=== PATIENT | female | born 1935 | race Caucasian/White ===

== ENCOUNTER → 2016-03-30 | Outpatient (REF) | payer MEDICARE ==
[~2016-03-30] MED LIST: /CELE20CA; /GLYB5TA; /PANT40TA; ACIPHEX; AVAN8TAB3; BABY81CH; CALCCHW12; FISH OIL OMEGA; GAVISCON; GLUC1000; LISI5TAB; PRESERVISION AREDS; SIMV40TA2; THERGRAN; TUMS500C; TYLENOL ARTHRITIS; XALATAN
[2016-03-30 14:36] LABS: PERCENT SATURATION 19.1 % (13.2-37.4)
== END ==
LOC: M LAB REF 13:01
PROVIDERS: ATTEND Internal Medicine Nephrology
DX: D64.9 Anemia, unspecified (principal)

== ENCOUNTER → 2016-03-31 | Outpatient (CLI) | payer MEDICARE ==
[2016-03-31 10:17] LABS: MEAN CORPUSCULAR HEMOGLOBIN 28.8 pg (27.0-33.0); MEAN CORPUSCULAR HGB CONC 33.3 g/dl (32.0-36.5); MEAN CORPUSCULAR VOLUME 86.5 fl (80.0-96.0); RED CELL DISTRIBUTION WIDTH 14.7 % (11.5-14.5)
[2016-03-31 10:58] LABS: ALBUMIN 3.1 GM/DL (3.2-5.2); BILIRUBIN,TOTAL 0.4 MG/DL (0.2-1.0); CALCIUM LEVEL 8.6 MG/DL (8.8-10.2); CREATININE FOR GFR 1.71 MG/DL (0.55-1.02); GLOMERULAR FILTRATION RATE 30.6 (>32); POTASSIUM SERUM 4.1 MEQ/L (3.5-5.1); TOTAL PROTEIN 6.2 GM/DL (6.4-8.2)
== END ==
LOC: M LAB 08:30
PROVIDERS: ATTEND Internal Medicine Cardiovascular Disease
DX: I50.32 Chronic diastolic (congestive) heart failure (principal); I25.10 Atherosclerotic heart disease of native coronary artery without angina pectoris; Z79.899 Other long term (current) drug therapy; I10 Essential (primary) hypertension; E78.00 Pure hypercholesterolemia, unspecified; E11.22 Type 2 diabetes mellitus with diabetic chronic kidney disease; Z86.2 Personal history of diseases of the blood and blood-forming organs and certain disorders involving the immune mechanism

== ENCOUNTER → 2016-03-31 | Outpatient (CLI) | payer MEDICARE ==
[2016-03-31 10:16] LABS: MEAN CORPUSCULAR HEMOGLOBIN 28.8 pg (27.0-33.0); MEAN CORPUSCULAR HGB CONC 33.2 g/dl (32.0-36.5); MEAN CORPUSCULAR VOLUME 86.8 fl (80.0-96.0); RED CELL DISTRIBUTION WIDTH 14.7 % (11.5-14.5); WHITE BLOOD COUNT 6.9 K/mm3 (4.0-10.0)
[2016-03-31 10:53] LABS: ALBUMIN 3.1 GM/DL (3.2-5.2); ALBUMIN/GLOBULIN RATIO 0.97 (1.00-1.93); BILIRUBIN,TOTAL 0.4 MG/DL (0.2-1.0); CALCIUM LEVEL 8.6 MG/DL (8.8-10.2); CREATININE FOR GFR 1.72 MG/DL (0.55-1.02); GLOMERULAR FILTRATION RATE 30.4 (>32); MAGNESIUM LEVEL 2.4 MG/DL (1.8-2.4); POTASSIUM SERUM 4.1 MEQ/L (3.5-5.1); TOTAL PROTEIN 6.3 GM/DL (6.4-8.2)
== END ==
LOC: M LAB 08:25
PROVIDERS: ATTEND Internal Medicine
DX: I50.32 Chronic diastolic (congestive) heart failure (principal); I10 Essential (primary) hypertension; E78.00 Pure hypercholesterolemia, unspecified; E11.22 Type 2 diabetes mellitus with diabetic chronic kidney disease; Z86.2 Personal history of diseases of the blood and blood-forming organs and certain disorders involving the immune mechanism

== ENCOUNTER → 2016-04-06 | Outpatient (REF) | payer MEDICARE | LOC: M SFHCPLAZ 09:26 | PROVIDERS: ATTEND Internal Medicine | DX: D64.9 Anemia, unspecified (principal); E11.22 Type 2 diabetes mellitus with diabetic chronic kidney disease; E78.00 Pure hypercholesterolemia, unspecified; Z53.8 Procedure and treatment not carried out for other reasons ==

== ENCOUNTER → 2016-05-03 | Outpatient (CLI) | payer MEDICARE ==
[2016-05-03 09:03] LABS: MEAN CORPUSCULAR HEMOGLOBIN 28.4 pg (27.0-33.0); MEAN CORPUSCULAR HGB CONC 33.7 g/dl (32.0-36.5); MEAN CORPUSCULAR VOLUME 84.2 fl (80.0-96.0); RED CELL DISTRIBUTION WIDTH 13.6 % (11.5-14.5)
[2016-05-03 09:27] LABS: ALBUMIN 2.8 GM/DL (3.2-5.2); CALCIUM LEVEL 8.3 MG/DL (8.8-10.2); CREATININE FOR GFR 1.91 MG/DL (0.55-1.02); GLOMERULAR FILTRATION RATE 26.9 (>32); PHOSPHORUS LEVEL 3.5 MG/DL (2.5-4.9)
== END ==
LOC: M LAB 08:09
PROVIDERS: ATTEND Internal Medicine Cardiovascular Disease
DX: N18.4 Chronic kidney disease, stage 4 (severe) (principal); D63.1 Anemia in chronic kidney disease; I50.32 Chronic diastolic (congestive) heart failure; I13.0 Hypertensive heart and chronic kidney disease with heart failure and stage 1 through stage 4 chronic kidney disease, or unspecified chronic kidney disease

== ENCOUNTER → 2016-05-03 | Outpatient (CLI) | payer MEDICARE ==
[2016-05-07 00:07] LABS: ERYTHROPOIETIN 24.9 mIU/mL (2.6-18.5); FREE KAPPA LIGHT CHAINS SERUM 64.21 mg/L (3.30-19.40); FREE LAMBDA LIGHT CHAINS SERUM 31.31 mg/L (5.71-26.30); KAPPA/LAMBDA RATIO SERUM 2.05 (0.26-1.65)
== END ==
LOC: M LAB 08:12
PROVIDERS: ATTEND Internal Medicine Medical Oncology
DX: D64.9 Anemia, unspecified (principal)

== ENCOUNTER → 2016-07-21 | Outpatient (CLI) | payer MEDICARE ==
--- NOTE | 2016-07-21 10:56 | REPMRS ---
Patient History The patient states she had a clinical breast exam in 2016. Digital Mammo Screening Bilat: July 21, 2016 - Exam #: [id number] Bilateral CC and MLO view(s) were taken. Technologist: Susi Dey, Technologist Prior study comparison: July 17, 2014, bilateral digital mammo screening bilat performed at [facility]. February 07, 2013, bilateral digital mammo screening bilat performed at [facility]. FINDINGS: There are scattered fibroglandular densities. There has been no change in the appearance of the mammogram from the prior studies. There is a mild amount of residual fibroglandular tissue which is fairly symmetric. There is no interval development of dominant mass, architectural distortion, or clustered microcalcification suggestive of malignancy. ASSESSMENT: BI-RADS/ACR category 1 mammogram. Negative. Recommendation Routine screening mammogram in 1 year (for women over age 40). This mammogram was interpreted with the aid of an FDA-approved computer-aided dectection system. Electronically Signed By: John Lombardo MD 07/21/16 [id number]
== END ==
LOC: M RAD 09:37
PROVIDERS: ATTEND Internal Medicine
DX: Z12.31 Encounter for screening mammogram for malignant neoplasm of breast (principal)

== ENCOUNTER → 2016-07-28 | Outpatient (CLI) | payer MEDICARE ==
[2016-07-28 09:09] LABS: MEAN CORPUSCULAR HEMOGLOBIN 29.2 pg (27.0-33.0); MEAN CORPUSCULAR HGB CONC 33.6 g/dl (32.0-36.5); MEAN CORPUSCULAR VOLUME 86.8 fl (80.0-96.0); RED CELL DISTRIBUTION WIDTH 15.5 % (11.5-14.5); WHITE BLOOD COUNT 6.3 K/mm3 (4.0-10.0)
[2016-07-28 09:47] LABS: ALBUMIN 2.9 GM/DL (3.2-5.2); ALBUMIN/GLOBULIN RATIO 0.83 (1.00-1.93); ALKALINE PHOSPHATASE 77 U/L (45-117); ALT/SGPT 13 U/L (12-78); ANION GAP 8 MEQ/L (8-16); AST/SGOT 11 U/L (15-37); BILIRUBIN,TOTAL 0.2 MG/DL (0.2-1.0); BLOOD UREA NITROGEN 46 MG/DL (7-18); CALCIUM LEVEL 8.6 MG/DL (8.8-10.2); CARBON DIOXIDE LEVEL 23 MEQ/L (21-32); CHLORIDE LEVEL 110 MEQ/L (98-107); CHOLESTEROL LEVEL 230 MG/DL (<200); CREATININE FOR GFR 1.91 MG/DL (0.55-1.02); GLOMERULAR FILTRATION RATE 26.9 (>32); GLUCOSE, FASTING 174 MG/DL (83-110); POTASSIUM SERUM 4.5 MEQ/L (3.5-5.1); SODIUM LEVEL 141 MEQ/L (136-145); TOTAL PROTEIN 6.4 GM/DL (6.4-8.2); TRIGLYCERIDES LEVEL 600 MG/DL (<150)
== END ==
LOC: M LAB 08:01
PROVIDERS: ATTEND Internal Medicine
DX: D64.9 Anemia, unspecified (principal); E11.22 Type 2 diabetes mellitus with diabetic chronic kidney disease; E78.00 Pure hypercholesterolemia, unspecified

== ENCOUNTER → 2016-10-18 | Outpatient (REF) | payer MEDICARE ==
[2016-10-18 14:05] LABS: VITAMIN B12 LEVEL 870 PG/ML (247-911)
[2016-10-18 14:17] LABS: TOTAL PROTEIN 6.7 GM/DL (6.4-8.2)
[2016-10-19 11:35] LABS: ALBUMIN 3.38 GM/DL (3.29-5.55); ALBUMIN % 50.4 % (55.8-66.1); GAMMA GLOBULIN % 12.4 % (11.1-18.8)
== END ==
LOC: M LAB REF 13:09
PROVIDERS: ATTEND Internal Medicine Medical Oncology
DX: D64.9 Anemia, unspecified (principal)

== ENCOUNTER → 2016-11-03 | Outpatient (CLI) | payer MEDICARE ==
[2016-11-03 08:36] LABS: ALBUMIN/GLOBULIN RATIO 0.79 (1.00-1.93); ALKALINE PHOSPHATASE 75 U/L (45-117); ALT/SGPT 14 U/L (12-78); ANION GAP 11 MEQ/L (8-16); AST/SGOT 11 U/L (15-37); BILIRUBIN,TOTAL 0.3 MG/DL (0.2-1.0); BLOOD UREA NITROGEN 60 MG/DL (7-18); CALCIUM LEVEL 8.6 MG/DL (8.8-10.2); CARBON DIOXIDE LEVEL 21 MEQ/L (21-32); CHLORIDE LEVEL 111 MEQ/L (98-107); CHOLESTEROL LEVEL 195 MG/DL (<200); CREATININE FOR GFR 1.97 MG/DL (0.55-1.02); GLOMERULAR FILTRATION RATE 25.9 (>32); GLUCOSE, FASTING 105 MG/DL (83-110); MAGNESIUM LEVEL 2.5 MG/DL (1.8-2.4); SODIUM LEVEL 143 MEQ/L (136-145); TOTAL PROTEIN 6.8 GM/DL (6.4-8.2); TRIGLYCERIDES LEVEL 409 MG/DL (<150)
== END ==
LOC: M LAB 07:32
PROVIDERS: ATTEND Internal Medicine
DX: E11.22 Type 2 diabetes mellitus with diabetic chronic kidney disease (principal); E78.00 Pure hypercholesterolemia, unspecified

== ENCOUNTER → 2017-01-05 | Outpatient (CLI) | payer MEDICARE ==
[2017-01-05 08:25] LABS: BASO # 0.1 10^3/uL (0.0-0.2); BASO % 0.7 % (0.0-1.0); EOS # 0.2 10^3/uL (0.0-0.50); EOS % 2.6 % (0.0-3.0); IMMATURE GRANULOCYTE % 0.2 % (0-0); LYMPH # 1.5 10^3/uL (1.5-4.5); LYMPH % 18.8 % (24.0-44.0); MEAN CORPUSCULAR HGB CONC 32.8 g/dl (32.0-36.5); MEAN CORPUSCULAR VOLUME 88.6 fl (80.0-96.0); MONO # 0.6 10^3/uL (0.0-0.8); MONO % 7.1 % (0.0-5.0); NEUTROPHILS # 5.8 10^3/uL (1.8-7.7); NEUTROPHILS % 70.6 % (36.0-66.0); PLATELET COUNT, AUTOMATED 242 10^3/uL (150-450); RED CELL DISTRIBUTION WIDTH 14.1 % (11.5-14.5); WHITE BLOOD COUNT 8.2 10^3/uL (4.0-10.0)
[2017-01-05 08:58] LABS: CALCIUM LEVEL 8.8 MG/DL (8.8-10.2); CREATININE FOR GFR 2.05 MG/DL (0.55-1.02); GLOMERULAR FILTRATION RATE 24.7 (>32); IMMUNOGLOBULIN M 71.3 MG/DL (40-230); POTASSIUM SERUM 4.4 MEQ/L (3.5-5.1)
[2017-01-09 14:21] LABS: FREE KAPPA LIGHT CHAINS SERUM 63.3 mg/L (3.3-19.4); FREE LAMBDA LIGHT CHAINS SERUM 29.2 mg/L (5.7-26.3); KAPPA/LAMBDA RATIO SERUM 2.17 (0.26-1.65); SOLUBLE TRANSFERRIN RECEPTOR 32.9 nmol/L (12.2-27.3)
== END ==
LOC: M LAB 07:54
PROVIDERS: ATTEND Internal Medicine Medical Oncology
DX: D64.9 Anemia, unspecified (principal)

== ENCOUNTER → 2017-04-11 | Outpatient (CLI) | payer MEDICARE ==
[2017-04-11 10:02] LABS: ESTIMATED AVERAGE GLUCOSE 143 MG/DL (60-110); HEMOGLOBIN A1c 6.6 %
[2017-04-11 10:18] LABS: ALBUMIN 3.2 GM/DL (3.2-5.2); ALBUMIN/GLOBULIN RATIO 0.86 (1.00-1.93); ALKALINE PHOSPHATASE 64 U/L (45-117); ALT/SGPT 15 U/L (12-78); ANION GAP 11 MEQ/L (8-16); AST/SGOT 11 U/L (7-37); BILIRUBIN,TOTAL 0.4 MG/DL (0.2-1.0); BLOOD UREA NITROGEN 60 MG/DL (7-18); CALCIUM LEVEL 8.8 MG/DL (8.8-10.2); CARBON DIOXIDE LEVEL 21 MEQ/L (21-32); CHLORIDE LEVEL 111 MEQ/L (98-107); CHOLESTEROL LEVEL 270 MG/DL (<200); CHOLESTEROL RISK RATIO 6.136 (<5); CREATININE FOR GFR 2.22 MG/DL (0.55-1.02); GLOMERULAR FILTRATION RATE 22.6 (>32); GLUCOSE, FASTING 88 MG/DL (70-100); HDL CHOLESTEROL 44 MG/DL (>40); NON-HDL-C 226 MG/DL; POTASSIUM SERUM 4.6 MEQ/L (3.5-5.1); SODIUM LEVEL 143 MEQ/L (136-145); TOTAL PROTEIN 6.9 GM/DL (6.4-8.2); TRIGLYCERIDES LEVEL 538 MG/DL (<150)
[2017-04-11 10:48] LABS: CREATININE, URINE 64.4 MG/DL; MAU/CREAT RATIO 4347.8 MCG/MG (0.0-30.0)
== END ==
LOC: M LAB 08:26
DX: E11.22 Type 2 diabetes mellitus with diabetic chronic kidney disease (principal)
CPT/HCPCS: 80053

== ENCOUNTER → 2017-05-08 | Outpatient (REF) | payer MEDICARE | LOC: M LAB REF 09:14 | DX: C44.319 Basal cell carcinoma of skin of other parts of face (principal) | CPT/HCPCS: 88305 ==

== ENCOUNTER → 2017-05-09 | Outpatient (CLI) | payer MEDICARE ==
[2017-05-09 08:54] LABS: BASO % 0.6 % (0.0-1.0); EOS # 0.4 10^3/uL (0.0-0.50); EOS % 5.1 % (0.0-3.0); HEMATOCRIT 29.3 % (36.0-47.0); HEMOGLOBIN 9.7 g/dl (12.0-16.0); IMMATURE GRANULOCYTE % 0.3 % (0-3.0); LYMPH # 1.5 10^3/uL (1.5-4.5); LYMPH % 21.1 % (24.0-44.0); MEAN CORPUSCULAR HEMOGLOBIN 29.3 pg (27.0-33.0); MEAN CORPUSCULAR HGB CONC 33.1 g/dl (32.0-36.5); MEAN CORPUSCULAR VOLUME 88.5 fl (80.0-96.0); MONO # 0.5 10^3/uL (0.0-0.8); MONO % 7.5 % (0.0-5.0); NEUTROPHILS # 4.6 10^3/uL (1.8-7.7); NEUTROPHILS % 65.4 % (36.0-66.0); PLATELET COUNT, AUTOMATED 228 10^3/uL (150-450); RED BLOOD COUNT 3.31 10^6/uL (4.00-5.40); RED CELL DISTRIBUTION WIDTH 14.3 % (11.5-14.5); WHITE BLOOD COUNT 7.1 10^3/uL (4.0-10.0)
[2017-05-09 09:43] LABS: ALBUMIN 3.1 GM/DL (3.2-5.2); ALBUMIN/GLOBULIN RATIO 0.86 (1.00-1.93); ALKALINE PHOSPHATASE 66 U/L (45-117); ALT/SGPT 16 U/L (12-78); ANION GAP 6 MEQ/L (8-16); AST/SGOT 15 U/L (7-37); BILIRUBIN,TOTAL 0.3 MG/DL (0.2-1.0); BLOOD UREA NITROGEN 50 MG/DL (7-18); CALCIUM LEVEL 8.2 MG/DL (8.8-10.2); CARBON DIOXIDE LEVEL 22 MEQ/L (21-32); CHLORIDE LEVEL 116 MEQ/L (98-107); CREATININE FOR GFR 2.06 MG/DL (0.55-1.30); FERRITIN 25 NG/ML (8-252); GLOMERULAR FILTRATION RATE 24.6 (>32); GLUCOSE, FASTING 80 MG/DL (70-100); IMMUNOGLOBULIN G 719 MG/DL (681-1648); IMMUNOGLOBULIN M 68.1 MG/DL (40-230); IRON (FE) 57 UG/DL (50-170); PERCENT SATURATION 20.6 % (13.2-45.0); POTASSIUM SERUM 4.4 MEQ/L (3.5-5.1); SODIUM LEVEL 144 MEQ/L (136-145); TOTAL IRON BINDING CAPACITY 277 UG/DL (250-450); TOTAL PROTEIN 6.7 GM/DL (6.4-8.2)
[2017-05-11 14:15] LABS: ALBUMIN 3.71 GM/DL (3.29-5.55); ALBUMIN % 55.4 % (55.8-66.1); ALPHA-1-GLOBULIN % 4.6 % (2.9-4.9); ALPHA-1-GLOBULINS 0.31 GM/DL (0.17-0.41); ALPHA-2-GLOBULINS 1.09 GM/DL (0.42-0.99); ALPHA-2-GLOBULINS % 16.3 % (7.1-11.8); BETA-2-GLOBULINS 0.44 GM/DL (0.19-0.55); BETA-2-GLOBULINS % 6.5 % (3.2-6.5); GAMMA GLOBULIN % 11.2 % (11.1-18.8); GAMMA GLOBULINS 0.75 GM/DL (0.65-1.58)
[2017-05-12 00:06] LABS: FREE KAPPA LIGHT CHAINS SERUM 59.9 mg/L (3.3-19.4); FREE LAMBDA LIGHT CHAINS SERUM 26.1 mg/L (5.7-26.3)
== END ==
LOC: M LAB 08:30
DX: D64.9 Anemia, unspecified (principal)
CPT/HCPCS: 83550

== ENCOUNTER → 2017-07-05 | Outpatient (CLI) | payer MEDICARE, BC ==
[2017-07-05 08:45] LABS: BASO % 0.6 % (0.0-1.0); EOS # 0.2 10^3/uL (0.0-0.50); EOS % 2.3 % (0.0-3.0); HEMATOCRIT 31.1 % (36.0-47.0); HEMOGLOBIN 10.6 g/dl (12.0-15.5); IMMATURE GRANULOCYTE % 0.3 % (0-3.0); LYMPH # 1.8 10^3/uL (1.5-4.5); LYMPH % 25.3 % (24.0-44.0); MEAN CORPUSCULAR HEMOGLOBIN 30.5 pg (27.0-33.0); MEAN CORPUSCULAR HGB CONC 34.1 g/dl (32.0-36.5); MEAN CORPUSCULAR VOLUME 89.4 fl (80.0-96.0); MONO # 0.5 10^3/uL (0.0-0.8); MONO % 7.8 % (0.0-5.0); NEUTROPHILS # 4.4 10^3/uL (1.8-7.7); NEUTROPHILS % 63.7 % (36.0-66.0); PLATELET COUNT, AUTOMATED 228 10^3/uL (150-450); RED BLOOD COUNT 3.48 10^6/uL (4.00-5.40); RED CELL DISTRIBUTION WIDTH 13.1 % (11.5-14.5)
[2017-07-05 09:20] LABS: ALBUMIN 3.2 GM/DL (3.2-5.2); ALBUMIN/GLOBULIN RATIO 0.84 (1.00-1.93); ALKALINE PHOSPHATASE 62 U/L (45-117); ALT/SGPT 19 U/L (12-78); ANION GAP 6 MEQ/L (8-16); AST/SGOT 20 U/L (7-37); BILIRUBIN,TOTAL 0.4 MG/DL (0.2-1.0); BLOOD UREA NITROGEN 43 MG/DL (7-18); CALCIUM LEVEL 8.8 MG/DL (8.8-10.2); CARBON DIOXIDE LEVEL 26 MEQ/L (21-32); CHLORIDE LEVEL 111 MEQ/L (98-107); CREATININE FOR GFR 2.16 MG/DL (0.55-1.30); GLOMERULAR FILTRATION RATE 23.3 (>32); GLUCOSE, FASTING 76 MG/DL (70-100); IMMUNOGLOBULIN G 745 MG/DL (681-1648); IMMUNOGLOBULIN M 72.8 MG/DL (40-230); POTASSIUM SERUM 4.4 MEQ/L (3.5-5.1); SODIUM LEVEL 143 MEQ/L (136-145)
[2017-07-05 13:04] LABS: ALBUMIN % 56.9 % (55.8-66.1)
[2017-07-05 13:05] LABS: ALBUMIN 3.98 GM/DL (3.29-5.55); ALPHA-1-GLOBULIN % 4.2 % (2.9-4.9); ALPHA-1-GLOBULINS 0.29 GM/DL (0.17-0.41); ALPHA-2-GLOBULINS 1.11 GM/DL (0.42-0.99); ALPHA-2-GLOBULINS % 15.9 % (7.1-11.8); BETA-1-GLOBULINS 0.41 GM/DL (0.28-0.60); BETA-1-GLOBULINS % 5.9 % (4.7-7.2); BETA-2-GLOBULINS 0.43 GM/DL (0.19-0.55); BETA-2-GLOBULINS % 6.1 % (3.2-6.5); GAMMA GLOBULINS 0.77 GM/DL (0.65-1.58)
== END ==
LOC: M LAB 08:05
DX: D64.9 Anemia, unspecified (principal); E53.8 Deficiency of other specified B group vitamins
CPT/HCPCS: 84165

== ENCOUNTER → 2017-08-15 | Outpatient (CLI) | payer MEDICARE, BC ==
[2017-08-15 08:32] LABS: ESTIMATED AVERAGE GLUCOSE 143 MG/DL (60-110); HEMOGLOBIN A1c 6.6 %
[2017-08-15 08:47] LABS: ALBUMIN 3.1 GM/DL (3.2-5.2); ALBUMIN/GLOBULIN RATIO 0.89 (1.00-1.93); ALKALINE PHOSPHATASE 57 U/L (45-117); ALT/SGPT 14 U/L (12-78); ANION GAP 8 MEQ/L (8-16); AST/SGOT 16 U/L (7-37); BILIRUBIN,TOTAL 0.3 MG/DL (0.2-1.0); BLOOD UREA NITROGEN 38 MG/DL (7-18); CALCIUM LEVEL 8.6 MG/DL (8.8-10.2); CARBON DIOXIDE LEVEL 25 MEQ/L (21-32); CHLORIDE LEVEL 111 MEQ/L (98-107); CHOLESTEROL LEVEL 304 MG/DL (<200); CHOLESTEROL RISK RATIO 6.608 (<5); CREATININE FOR GFR 2.13 MG/DL (0.55-1.30); GLOMERULAR FILTRATION RATE 23.7 (>32); GLUCOSE, FASTING 81 MG/DL (70-100); HDL CHOLESTEROL 46 MG/DL (>40); MAGNESIUM LEVEL 2.4 MG/DL (1.8-2.4); NON-HDL-C 258 MG/DL; POTASSIUM SERUM 4.8 MEQ/L (3.5-5.1); SODIUM LEVEL 144 MEQ/L (136-145); TOTAL PROTEIN 6.6 GM/DL (6.4-8.2); TRIGLYCERIDES LEVEL 674 MG/DL (<150)
== END ==
LOC: M LAB 07:43
DX: E11.22 Type 2 diabetes mellitus with diabetic chronic kidney disease (principal); E78.2 Mixed hyperlipidemia; I11.0 Hypertensive heart disease with heart failure; I50.9 Heart failure, unspecified; N18.9 Chronic kidney disease, unspecified
CPT/HCPCS: 83735

== ENCOUNTER → 2017-09-14 | Outpatient (CLI) | payer MEDICARE, BC ==
[2017-09-14 09:14] LABS: ALBUMIN 3.3 GM/DL (3.2-5.2); ALBUMIN/GLOBULIN RATIO 0.87 (1.00-1.93); ALKALINE PHOSPHATASE 62 U/L (45-117); ALT/SGPT 17 U/L (12-78); ANION GAP 9 MEQ/L (8-16); AST/SGOT 13 U/L (7-37); BILIRUBIN,TOTAL 0.4 MG/DL (0.2-1.0); BLOOD UREA NITROGEN 52 MG/DL (7-18); CARBON DIOXIDE LEVEL 25 MEQ/L (21-32); CHLORIDE LEVEL 110 MEQ/L (98-107); CHOLESTEROL LEVEL 218 MG/DL (<200); CHOLESTEROL RISK RATIO 4.192 (<5); CREATININE FOR GFR 2.41 MG/DL (0.55-1.30); GLOMERULAR FILTRATION RATE 20.5 (>32); GLUCOSE, FASTING 90 MG/DL (70-100); HDL CHOLESTEROL 52 MG/DL (>40); NON-HDL-C 166 MG/DL; POTASSIUM SERUM 4.7 MEQ/L (3.5-5.1); SODIUM LEVEL 144 MEQ/L (136-145); TOTAL PROTEIN 7.1 GM/DL (6.4-8.2); TRIGLYCERIDES LEVEL 463 MG/DL (<150)
== END ==
LOC: M LAB 07:50
DX: I11.0 Hypertensive heart disease with heart failure (principal); E78.5 Hyperlipidemia, unspecified
CPT/HCPCS: 80053

== ENCOUNTER → 2017-12-07 | Outpatient (REF) | payer MEDICARE, BC | LOC: M SFHCPLAZ 09:04 | DX: C44.310 Basal cell carcinoma of skin of unspecified parts of face (principal) | CPT/HCPCS: 88305 ==

== ENCOUNTER → 2017-12-26 | Outpatient (CLI) | payer MEDICARE, BC ==
[2017-12-26 08:27] LABS: ALBUMIN/GLOBULIN RATIO 0.88 (1.00-1.93); ALKALINE PHOSPHATASE 60 U/L (45-117); ALT/SGPT 12 U/L (12-78); ANION GAP 6 MEQ/L (8-16); AST/SGOT 14 U/L (7-37); BILIRUBIN,TOTAL 0.2 MG/DL (0.2-1.0); BLOOD UREA NITROGEN 48 MG/DL (7-18); CALCIUM LEVEL 8.5 MG/DL (8.8-10.2); CARBON DIOXIDE LEVEL 23 MEQ/L (21-32); CHLORIDE LEVEL 115 MEQ/L (98-107); CHOLESTEROL LEVEL 132 MG/DL (<200); CREATININE FOR GFR 2.42 MG/DL (0.55-1.30); GLOMERULAR FILTRATION RATE 20.4 (>32); GLUCOSE, FASTING 68 MG/DL (70-100); HDL CHOLESTEROL 48 MG/DL (>40); LDL CHOLESTEROL 42 MG/DL (<100); MAGNESIUM LEVEL 2.3 MG/DL (1.8-2.4); NON-HDL-C 84 MG/DL; POTASSIUM SERUM 5.2 MEQ/L (3.5-5.1); SODIUM LEVEL 144 MEQ/L (136-145); TOTAL PROTEIN 6.4 GM/DL (6.4-8.2); TRIGLYCERIDES LEVEL 208 MG/DL (<150)
[2017-12-26 08:34] LABS: ESTIMATED AVERAGE GLUCOSE 108 MG/DL (60-110); HEMOGLOBIN A1c 5.4 %
[2017-12-26 09:47] LABS: VITAMIN B12 LEVEL > 2000 PG/ML (247-911)
== END ==
LOC: M LAB 07:14
DX: E11.22 Type 2 diabetes mellitus with diabetic chronic kidney disease (principal); E78.2 Mixed hyperlipidemia; E53.8 Deficiency of other specified B group vitamins
CPT/HCPCS: 83735

== ENCOUNTER → 2018-01-03 | Outpatient (CLI) | payer MEDICARE, BC ==
[2018-01-03 08:44] LABS: ALBUMIN 3.1 GM/DL (3.2-5.2); ANION GAP 7 MEQ/L (8-16); BLOOD UREA NITROGEN 47 MG/DL (7-18); CALCIUM LEVEL 8.8 MG/DL (8.8-10.2); CARBON DIOXIDE LEVEL 24 MEQ/L (21-32); CHLORIDE LEVEL 113 MEQ/L (98-107); CREATININE FOR GFR 2.47 MG/DL (0.55-1.30); GLOMERULAR FILTRATION RATE 19.9 (>32); GLUCOSE, FASTING 77 MG/DL (70-100); NT-PRO BNP 727 PG/ML (<450); PHOSPHORUS LEVEL 4.4 MG/DL (2.5-4.9); POTASSIUM SERUM 4.8 MEQ/L (3.5-5.1); SODIUM LEVEL 144 MEQ/L (136-145)
== END ==
LOC: M LAB 07:24
DX: I50.32 Chronic diastolic (congestive) heart failure (principal)
CPT/HCPCS: 80069

== ENCOUNTER → 2018-01-04 | Outpatient (REF) | payer MEDICARE, BC | LOC: M LAB REF 17:43 | DX: C44.42 Squamous cell carcinoma of skin of scalp and neck (principal) | CPT/HCPCS: 88305 ==

== ENCOUNTER → 2018-01-16 | Outpatient (REF) | payer MEDICARE, BC | LOC: M LAB REF 17:56 | DX: C44.319 Basal cell carcinoma of skin of other parts of face (principal) | CPT/HCPCS: 88305 ==

== ENCOUNTER 2018-01-25 06:02 | Day surgery (SDC) | payer MEDICARE ==
[2018-01-25 06:54] LABS: BEDSIDE GLUCOSE 100 MG/DL (83-110)
[2018-01-25] MEDS: CLINDAMYCIN 600 MG in APPROPRIATE DILUENT 1 EA IV ×2 (07:27→07:37)
[2018-01-25] MEDS ORDERED: CLINDAMYCIN 600 MG/50 ML PREMIX BAG As Ordered (07:29)
[2018-01-25] MEDS ORDERED: fentaNYL 100 MCG/2 ML INJECTION (J3010) As Ordered (08:04)
[2018-01-25] MEDS ORDERED: MIDAZOLAM INJ 2 MG/2 ML VIAL (J2250) As Ordered (08:04)
[2018-01-25] MEDS ORDERED: PROPOFOL 200 MG/20 ML VIAL As Ordered ×7 (08:04→09:21)
[2018-01-25] MEDS ORDERED: LIDOCAINE 2% INJ 100 MG/5 ML SDV (FOR ANES.) As Ordered (08:04)
[2018-01-25] MEDS ORDERED: ONDANSETRON 4MG/2ML VIAL (J2405) As Ordered (08:05)
[2018-01-25] MEDS: LIDOCAINE 2% W/EPIN INJ 20ML **PRES FREE As Ordered (08:05)
[2018-01-25] MEDS: BACITRACIN OINT 30GM As Ordered (10:19)
[2018-01-25] MEDS ORDERED: ONDANSETRON 4MG/2ML VIAL (J2405) IV (11:15)
[2018-01-25] MEDS ORDERED: fentaNYL 100 MCG/2 ML INJECTION (J3010) IV (11:15)
[2018-01-25] MEDS ORDERED: NORCO, ANEXSIA 5/325MG TABLET (HYDROcodone/ACETAMINOPHEN) PO (11:15)
== END 2018-01-25 11:57 | disposition home or self-care (01) ==
LOC: M SDC 06:02
DX: C44.42 Squamous cell carcinoma of skin of scalp and neck (principal); L57.8 Other skin changes due to chronic exposure to nonionizing radiation; I13.10 Hypertensive heart and chronic kidney disease without heart failure, with stage 1 through stage 4 chronic kidney disease, or unspecified chronic kidney disease; I25.10 Atherosclerotic heart disease of native coronary artery without angina pectoris; E11.22 Type 2 diabetes mellitus with diabetic chronic kidney disease; N18.4 Chronic kidney disease, stage 4 (severe); E78.2 Mixed hyperlipidemia; K21.9 Gastro-esophageal reflux disease without esophagitis; D63.1 Anemia in chronic kidney disease; M12.9 Arthropathy, unspecified; E55.9 Vitamin D deficiency, unspecified; E53.8 Deficiency of other specified B group vitamins; E16.1 Other hypoglycemia; R76.8 Other specified abnormal immunological findings in serum; Z88.0 Allergy status to penicillin; Z88.1 Allergy status to other antibiotic agents; Z91.013 Allergy to seafood; Z91.048 Other nonmedicinal substance allergy status; Z79.899 Other long term (current) drug therapy; Z79.01 Long term (current) use of anticoagulants; Z79.82 Long term (current) use of aspirin; Z79.4 Long term (current) use of insulin; Z95.5 Presence of coronary angioplasty implant and graft; Z78.0 Asymptomatic menopausal state; Z87.891 Personal history of nicotine dependence; Z98.41 Cataract extraction status, right eye; Z98.42 Cataract extraction status, left eye; Z96.1 Presence of intraocular lens; Z86.2 Personal history of diseases of the blood and blood-forming organs and certain disorders involving the immune mechanism
CPT/HCPCS: 11442

== ENCOUNTER → 2018-03-08 | Outpatient (REF) | payer MEDICARE ==
[~2018-03-08] MED LIST changes: +AMLO5TAB6 PO; +ASPI1TAB PO; +CARV12.5 PO; +CRES40TA PO; +FISH1200 PO; +FOLI1TAB11 PO; +GLIP5TAB20 PO; +JANU100T PO; +LANTINJ4 SC; +LISI10TA4 PO; +MULT1TAB10 PO; +NITR0.4S14 SL; +PANT40TA3 PO; +PLAV1TAB2 PO; +PRESCAP PO; +TORS20TA2 PO; +TYLE650T35 PO; +VITA100072 PO
[2018-03-08 17:51] LABS: CHOLESTEROL LEVEL 121 MG/DL (<200); FERRITIN 85 NG/ML (8-252); HDL CHOLESTEROL 50 MG/DL (>40); IRON (FE) 10 UG/DL (50-170); LDL CHOLESTEROL 46 MG/DL (<100); NON-HDL-C 71 MG/DL; PERCENT SATURATION 4.2 % (13.2-45.0); TOTAL IRON BINDING CAPACITY 236 UG/DL (250-450); TRIGLYCERIDES LEVEL 127 MG/DL (<150)
[2018-03-08 17:59] LABS: FOLATE > 24.0 NG/ML
[2018-03-09 09:38] LABS: HEPATITIS B SURFACE ANTIGEN NEGATIVE (NEGATIVE)
[2018-03-09 10:00] LABS: HEPATITIS B SURFACE ANTIBODY NEGATIVE (POSITIVE)
[2018-03-09 10:06] LABS: HEPATITIS C VIRUS ABY INDEX 0.1 INDEX (<0.8)
[2018-03-09 10:07] LABS: HEPATITIS B CORE ANTIBODY IGM NEGATIVE (NEGATIVE)
[2018-03-09 11:25] LABS: VITAMIN B12 LEVEL > 2000 PG/ML
== END ==
LOC: M LAB REF 17:03
PROVIDERS: ATTEND Internal Medicine Nephrology
DX: D64.9 Anemia, unspecified (principal); N18.5 Chronic kidney disease, stage 5

== ENCOUNTER → 2018-03-19 | Outpatient (REF) | payer MEDICARE ==
[~2018-03-19] MED LIST changes: +AMLO5TAB4 PO; -AMLO5TAB6 PO; -FOLI1TAB11 PO; +FOLI1TAB5 PO; +GLIP1TAB49 PO; -GLIP5TAB20 PO
== END ==
LOC: M SFHCPLAZ 17:07
PROVIDERS: ATTEND Dermatology
DX: D04.62 Carcinoma in situ of skin of left upper limb, including shoulder (principal); L57.8 Other skin changes due to chronic exposure to nonionizing radiation

== ENCOUNTER → 2018-04-10 | Outpatient (CLI) | payer MEDICARE ==
[~2018-04-10] MED LIST changes: -AMLO5TAB4 PO; +AMLO5TAB6 PO; +FOLI1TAB11 PO; -FOLI1TAB5 PO; -GLIP1TAB49 PO; +GLIP5TAB20 PO
--- NOTE | 2018-04-10 13:49 | REP ---
DUPLEX DOPPLER EVALUATION OF BILATERAL UPPER EXTREMITY ARTERIAL AND VENOUS SYSTEMS FOR AV FISTULA: Real-time ultrasound evaluation and duplex Doppler interrogation of bilateral upper extremity venous and arterial systems is performed. There is no deep vein thrombosis bilaterally. On the right the basilic vein measures 7 mm at the upper humerus, 4 mm at the lower humerus and antecubital region and 3 mm in the forearm. Median cubital vein measures 4 mm. Right cephalic vein measures 4 mm at the upper humerus, 3 mm at the lower humerus, 6 mm in the antecubital region, 4 mm in the upper forearm, and 2 mm in the lower forearm. Right upper extremity arterial system demonstrates normal flow velocities with triphasic and biphasic waveforms. The right axillary artery measures 5 mm as does the brachial artery. The right radial artery measures 3 mm and the ulnar artery 1 mm. On the left the basilic vein measures 8 mm at the upper humerus, 6 mm at the lower humerus, and antecubital region, 4 mm in the upper forearm, and 2 mm in the lower forearm. Median cubital vein measures 8 mm. Left cephalic vein is quite small in caliber measuring only 1 mm at the level of the humerus and antecubital region and this vessel is not seen in the forearm. The left upper extremity arterial system demonstrates normal flow velocities with diffuse biphasic waveforms. The left axillary artery measures 5 mm, brachial artery 4 mm, radial artery 3 mm and ulnar artery 2 mm. Electronically Signed by John Lombardo MD 04/10/2018 07:27 P
== END ==
LOC: M RAD 10:28
PROVIDERS: ATTEND Surgery Vascular Surgery
DX: Z01.818 Encounter for other preprocedural examination (principal); N18.6 End stage renal disease

== ENCOUNTER 2018-04-23 08:55 | Outpatient (CLI) | payer MEDICARE ==
[~2018-04-23] VITALS: Ht 167.6 cm; Wt 75.0 kg
[2018-04-23] VITALS (8 sets, daily range): BP systolic 141–164; BP diastolic 54–64
[2018-04-23] MEDS ORDERED: IRON SUCROSE 25 MG in NS 50 ML IV ONE (10:00)
[2018-04-23] MEDS ORDERED: IRON SUCROSE 375 MG in NS 250 ML IV ONE (11:00)
[2018-04-23] MEDS ORDERED: FUROSEMIDE 40 MG/4 ML VIAL (J1940) IV ONE (14:00)
== END 2018-04-23 16:15 | disposition home or self-care (01) ==
LOC: M INFU 08:55
PROVIDERS: ATTEND Internal Medicine Nephrology
DX: D50.9 Iron deficiency anemia, unspecified (principal); Z88.8 Allergy status to other drugs, medicaments and biological substances; Z88.1 Allergy status to other antibiotic agents; Z79.899 Other long term (current) drug therapy
CPT/HCPCS: 96365; 96366; 96375; J1756; J1940

== ENCOUNTER 2018-05-01 08:41 | Outpatient (CLI) | payer MEDICARE ==
[~2018-05-01] VITALS: Ht 167.6 cm; Wt 75.0 kg
[2018-05-01] VITALS (7 sets, daily range): BP systolic 164–188; BP diastolic 68–88
[2018-05-01] MEDS ORDERED: FUROSEMIDE 40 MG/4 ML VIAL (J1940) IV ONE (10:00)
[2018-05-01] MEDS ORDERED: IRON SUCROSE 375 MG in NS 250 ML IV ONE (10:00)
[2018-05-01] MEDS ORDERED: IRON SUCROSE 25 MG in NS 50 ML IV ONE (10:00)
== END 2018-05-01 15:40 | disposition home or self-care (01) ==
LOC: M INFU 08:41
PROVIDERS: ATTEND Internal Medicine Nephrology
DX: D50.9 Iron deficiency anemia, unspecified (principal)

== ENCOUNTER → 2018-05-01 | Outpatient (CLI) | payer MEDICARE ==
[2018-05-01 10:34] LABS: ALBUMIN 3.2 GM/DL (3.2-5.2); ALT/SGPT 12 U/L (12-78); BILIRUBIN,TOTAL 0.4 MG/DL (0.2-1.0); BLOOD UREA NITROGEN 32 MG/DL (7-18); CALCIUM LEVEL 8.6 MG/DL (8.8-10.2); CARBON DIOXIDE LEVEL 26 MEQ/L (21-32); CHLORIDE LEVEL 110 MEQ/L (98-107); CHOLESTEROL LEVEL 117 MG/DL (<200); CHOLESTEROL RISK RATIO 2.489 (<5); CREATININE FOR GFR 2.31 MG/DL (0.55-1.30); GLOMERULAR FILTRATION RATE 21.5 (>32); GLUCOSE, FASTING 70 MG/DL (70-100); HDL CHOLESTEROL 47 MG/DL (>40); LDL CHOLESTEROL 38 MG/DL (<100); MAGNESIUM LEVEL 2.2 MG/DL (1.8-2.4); NON-HDL-C 70 MG/DL; POTASSIUM SERUM 4.5 MEQ/L (3.5-5.1); SODIUM LEVEL 144 MEQ/L (136-145); TOTAL PROTEIN 6.5 GM/DL (6.4-8.2); TRIGLYCERIDES LEVEL 162 MG/DL (<150)
[2018-05-01 10:58] LABS: HEMOGLOBIN A1c 5.3 %
[2018-05-01 13:58] LABS: ALBUMIN 3.45 GM/DL (3.29-5.55); ALBUMIN % 53.1 % (55.8-66.1); ALPHA-1-GLOBULIN % 5.6 % (2.9-4.9); ALPHA-1-GLOBULINS 0.36 GM/DL (0.17-0.41); ALPHA-2-GLOBULINS 1.09 GM/DL (0.42-0.99); ALPHA-2-GLOBULINS % 16.7 % (7.1-11.8); BETA-1-GLOBULINS % 6.2 % (4.7-7.2); BETA-2-GLOBULINS % 6.1 % (3.2-6.5); GAMMA GLOBULIN % 12.3 % (11.1-18.8)
[2018-05-03 00:09] LABS: FREE KAPPA LIGHT CHAINS SERUM 84.3 mg/L (3.3-19.4); KAPPA/LAMBDA RATIO SERUM 2.81 (0.26-1.65)
== END ==
LOC: M LAB 08:50
PROVIDERS: ATTEND Internal Medicine
DX: I12.9 Hypertensive chronic kidney disease with stage 1 through stage 4 chronic kidney disease, or unspecified chronic kidney disease (principal); R76.8 Other specified abnormal immunological findings in serum; E11.22 Type 2 diabetes mellitus with diabetic chronic kidney disease; E78.2 Mixed hyperlipidemia; D50.9 Iron deficiency anemia, unspecified
CPT/HCPCS: 36415; 80053; 80061; 83036; 83735; 83883; 84165; 96365; 96366; 96367; J1756; J1940

== ENCOUNTER → 2018-05-16 | Outpatient (REF) | payer MEDICARE ==
[2018-05-16 18:24] LABS: PERCENT SATURATION 12.4 % (13.2-45.0)
== END ==
LOC: M LAB REF 17:19
PROVIDERS: ATTEND Internal Medicine Nephrology
DX: D50.9 Iron deficiency anemia, unspecified (principal)

== ENCOUNTER 2018-05-31 08:55 | Outpatient (CLI) | payer MEDICARE ==
[~2018-05-31] VITALS: Ht 167.6 cm; Wt 76.3 kg
[2018-05-31 09:16] VITALS: BP 160/72
[2018-05-31] MEDS ORDERED: IRON SUCROSE 225 MG in NS 250 ML IV ONE (10:00)
[2018-05-31] MEDS ORDERED: IRON SUCROSE 250 MG in NS 250 ML IV ONE (10:00)
[2018-05-31] MEDS ORDERED: IRON SUCROSE 25 MG in NS 50 ML IV ONE (10:00)
[2018-05-31 10:40] VITALS: BP 172/76
[2018-05-31 11:45] VITALS: BP 161/70
[2018-05-31 12:45] VITALS: BP 153/72
[2018-05-31 13:31] VITALS: BP 171/71
[2018-05-31 14:15] VITALS: BP 157/68
== END 2018-05-31 14:15 | disposition home or self-care (01) ==
LOC: M INFU 08:55
PROVIDERS: ATTEND Internal Medicine Nephrology
DX: D50.9 Iron deficiency anemia, unspecified (principal); Z91.013 Allergy to seafood; Z88.0 Allergy status to penicillin
CPT/HCPCS: 96365; 96366; J1756

== ENCOUNTER 2018-06-06 10:30 | Outpatient (CLI) | payer MEDICARE ==
[~2018-06-06] VITALS: Ht 167.6 cm; Wt 76.4 kg
[2018-06-06] VITALS (7 sets, daily range): BP systolic 122–158; BP diastolic 54–64
[~2018-06-06 10:30] MED LIST changes: +IRON SUCROSE 225 MG in NS 250 ML IV ONE; +IRON SUCROSE 25 MG in NS 50 ML IV ONE
== END 2018-06-06 15:30 | disposition home or self-care (01) ==
LOC: M INFU 10:30
PROVIDERS: ATTEND Internal Medicine Nephrology
DX: D50.9 Iron deficiency anemia, unspecified (principal); Z88.1 Allergy status to other antibiotic agents; Z88.8 Allergy status to other drugs, medicaments and biological substances
CPT/HCPCS: 96365; 96366; J1756

== ENCOUNTER 2018-06-14 10:45 | Day surgery (SDC) | payer MEDICARE ==
[~2018-06-14] VITALS: Ht 167.6 cm; Wt 73.8 kg
[~2018-06-14 10:45] MED LIST changes: -/CELE20CA; -/GLYB5TA; -/PANT40TA; -ASPI1TAB PO; +ASPI81TA26 PO; +CELE1CAP4; +GLYB1TAB29; -IRON SUCROSE 225 MG in NS 250 ML IV ONE; -IRON SUCROSE 25 MG in NS 50 ML IV ONE; +LR 1,000 ML IV ONE; +PROT1TAB2; +VITA100018 PO; -VITA100072 PO
[2018-06-14] MEDS ORDERED: DEXTROSE 50% 50 ML SYRINGE As Ordered ONE (11:15)
[2018-06-14] MEDS ORDERED: ONDANSETRON 4MG/2ML VIAL (J2405) As Ordered ONE (11:22)
[2018-06-14] MEDS ORDERED: dexameTHASONE 4 MG/ML 1ML VIAL (J1100) As Ordered ONE (11:22)
[2018-06-14] MEDS ORDERED: LIDOCAINE 2% INJ 100 MG/5 ML SDV (FOR ANES.) As Ordered ONE (11:22)
[2018-06-14] MEDS ORDERED: fentaNYL 100 MCG/2 ML INJECTION (J3010) As Ordered ONE (11:23)
[2018-06-14] MEDS ORDERED: MIDAZOLAM INJ 2 MG/2 ML VIAL (J2250) As Ordered ONE (11:23)
[2018-06-14] MEDS ORDERED: PROPOFOL 500 MG/50 ML VIAL As Ordered ONE (11:23)
[2018-06-14] MEDS ORDERED: DEXTROSE 50% 50 ML SYRINGE IV ONE (11:30)
[2018-06-14] MEDS ORDERED: HEPARIN SOD (PORCINE) 5000 UNITS/ML VIAL As Ordered ONE (13:57)
[2018-06-14] MEDS ORDERED: LIDOCAINE 1% SDV INJ 30 ML VIAL As Ordered ONE (13:57)
[2018-06-14] MEDS ORDERED: BUPIVACAINE HCL 0.5% 30 ML VIAL As Ordered ONE (13:57)
[2018-06-14 17:15] VITALS: BP 186/77
--- NOTE | 2018-06-20 14:14 | RO ---
DATE OF PROCEDURE: 06/14/2018 ATTENDING SURGEON: Dr. Mg Pereira INTERNET WEBMASTER: None. PREOPERATIVE DIAGNOSIS: Chronic renal insufficiency nearing end-stage renal disease. POSTOPERATIVE DIAGNOSIS: Chronic renal insufficiency nearing end-stage renal disease. PROCEDURE: Right radiocephalic arteriovenous fistula creation. INDICATION: The patient is an 82-year-old female with chronic renal insufficiency, who is nearing end-stage renal disease and requires access for hemodialysis. The patient will undergo creation of a right radiocephalic, possible right brachiocephalic arteriovenous fistula. Risks, benefits and alternative treatment options were discussed with the patient. ANESTHESIA: Local monitored anesthesia care (MAC). ESTIMATED BLOOD LOSS: 30 mL. INTRAVENOUS (IV) FLUIDS: 300 mL. HEPARIN: None. COMPLICATIONS: None. DRAINS: None. SPECIMENS: None. IMPLANTS: None. DESCRIPTION OF PROCEDURE: The patient was taken to the operating room, placed supine on the operating room table and the right upper extremity was prepped and draped in a standard surgical fashion. Two incisions were made at the wrist, one overlying the cephalic vein and one overlying the radial artery. These were sharply dissected free. The cephalic vein was transected, brought to the radial artery through it and tunneled between the two incisions and anastomosed to the radial artery end-to-side fashion using #6-0 Prolene suture. There was good flow in the fistula at the completion of the anastomosis. Hemostasis was obtained. After which, the incisions were closed using #3-0 Monocryl to approximate the skin in a running subcuticular fashion. Steri-Strips and dressings were applied. All instrument, sponge and needle counts were correct at the end the case. There were no complications. Dr. Pereira was present for and directed the entire case. The patient was transferred to the recovery room awake, alert, extubated and in stable condition.
== END 2018-06-14 17:22 | disposition home or self-care (01) ==
LOC: M SDC 10:45
PROVIDERS: ATTEND Surgery Vascular Surgery
DX: N18.9 Chronic kidney disease, unspecified (principal)
CPT/HCPCS: 36821; J1100; J2250; J2405; J3010

== ENCOUNTER 2018-06-14 20:36 | Emergency (ER) | payer MEDICARE ==
[~2018-06-14] VITALS: Ht 167.6 cm; Wt 73.2 kg
[~2018-06-14 20:36] MED LIST changes: -LR 1,000 ML IV ONE
[2018-06-14 22:33] LABS: BASO % 0.3 % (0.0-1.0); HEMATOCRIT 28.2 % (36.0-47.0); HEMOGLOBIN 9.1 g/dl (12.0-15.5); LYMPH # 0.4 10^3/uL (1.5-4.5); LYMPH % 5.5 % (24.0-44.0); MEAN CORPUSCULAR HEMOGLOBIN 28.3 pg (27.0-33.0); MEAN CORPUSCULAR HGB CONC 32.3 g/dl (32.0-36.5); MEAN CORPUSCULAR VOLUME 87.6 fl (80.0-96.0); MONO # 0.1 10^3/uL (0.0-0.8); MONO % 0.7 % (0.0-5.0); NEUTROPHILS # 6.8 10^3/uL (1.8-7.7); NEUTROPHILS % 93.1 % (36.0-66.0); PLATELET COUNT, AUTOMATED 200 10^3/uL (150-450); RED BLOOD COUNT 3.22 10^6/uL (4.00-5.40); WHITE BLOOD COUNT 7.3 10^3/uL (4.0-10.0)
[2018-06-14 22:43] LABS: INR 1.15; PROTHROMBIN TIME 14.9 SECONDS (12.1-14.4)
[2018-06-14 22:44] LABS: PARTIAL THROMBOPLASTIN TIME 33.6 SECONDS (25.4-37.6)
[2018-06-15 01:57] VITALS: BP 191/72
== END 2018-06-15 02:05 | disposition home or self-care (01) ==
LOC: M ED 20:36
DX: D62 Acute posthemorrhagic anemia (principal); R73.09 Other abnormal glucose; R03.0 Elevated blood-pressure reading, without diagnosis of hypertension; M25.18 Fistula, other specified site; I11.0 Hypertensive heart disease with heart failure; E11.9 Type 2 diabetes mellitus without complications; E78.5 Hyperlipidemia, unspecified; Z79.01 Long term (current) use of anticoagulants; Z79.899 Other long term (current) drug therapy; Z79.4 Long term (current) use of insulin; Z98.890 Other specified postprocedural states; Z87.891 Personal history of nicotine dependence; Z88.0 Allergy status to penicillin; Z88.1 Allergy status to other antibiotic agents; Z91.013 Allergy to seafood; Z95.1 Presence of aortocoronary bypass graft

== ENCOUNTER 2018-06-15 08:53 | Outpatient (CLI) | payer MEDICARE ==
[~2018-06-15] VITALS: Ht 165.1 cm; Wt 76.4 kg
[2018-06-15] MEDS ORDERED: FUROSEMIDE 40 MG/4 ML VIAL (J1940) IV ONE (09:30)
[2018-06-15 09:32] VITALS: BP 170/76
[2018-06-15] MEDS ORDERED: IRON SUCROSE 25 MG in NS 50 ML IV ONE (10:00)
[2018-06-15] MEDS ORDERED: IRON SUCROSE 375 MG in NS 250 ML IV ONE (10:00)
[2018-06-15 10:05] VITALS: BP 148/52
[2018-06-15 11:05] VITALS: BP 151/64
[2018-06-15 12:00] VITALS: BP 162/72
[2018-06-15 13:00] VITALS: BP 149/68
[2018-06-15 14:50] VITALS: BP 154/64
== END 2018-06-15 14:50 | disposition home or self-care (01) ==
LOC: M INFU 08:53
PROVIDERS: ATTEND Internal Medicine Nephrology
DX: D50.9 Iron deficiency anemia, unspecified (principal); Z79.4 Long term (current) use of insulin; Z79.82 Long term (current) use of aspirin; Z79.01 Long term (current) use of anticoagulants; Z79.899 Other long term (current) drug therapy; Z88.0 Allergy status to penicillin; Z88.3 Allergy status to other anti-infective agents; Z91.013 Allergy to seafood
CPT/HCPCS: 96365; 96366; J1756; J1940

== ENCOUNTER → 2018-07-02 | Outpatient (CLI) | payer MEDICARE ==
[~2018-07-02] MED LIST changes: +BUPIVACAINE HCL 0.5% 10 ML VIAL As Ordered ONE; +ISOVUE-300 61% 100ML VIAL (Q9967) As Ordered ONE; +LIDOCAINE 2% MDV 20 ML VIAL As Ordered ONE; +MIDAZOLAM INJ 2 MG/2 ML VIAL (J2250) As Ordered ONE; +fentaNYL 100 MCG/2 ML INJECTION (J3010) As Ordered ONE
--- NOTE | 2018-07-25 08:08 | REPIR ---
DATE OF PROCEDURE: 07/02/2018 PREOPERATIVE DIAGNOSES: Chronic renal insufficiency nearing end-stage renal disease, dysfunctional right radiocephalic arteriovenous fistula. POSTOPERATIVE DIAGNOSE: Chronic renal insufficiency nearing end-stage renal disease, dysfunctional right radiocephalic arteriovenous fistula. PROCEDURE: Right radiocephalic arteriovenous fistulogram, retrograde right radial artery angiogram. SURGEON: Dr. Zeyad Pereira. STRETCHER DRIER OPERATOR: Harmony Khan and Nenita Beltran. ANESTHESIA: Local with 1 mL of 2% lidocaine mixed with 0.5% Marcaine. FLUORO TIME: 0.3 minutes. CONTRAST: 1 mL HEPARIN: None. COMPLICATIONS: None: DRAINS: None. SPECIMEN: None. IMPLANTS: None. INDICATION: The patient is an 82-year-old female with chronic renal insufficiency nearing end-stage renal disease who has not yet begun renal replacement therapy who underwent creation of a right radiocephalic arteriovenous fistula which is not maturing. The patient undergo a cystogram with possible angioplasty stent and/or atherectomy. Risks, benefits and alternative options were discussed with the patient. DESCRIPTION OF PROCEDURE: The patient was taken to the angiography suite, placed supine on the angiography room table and prepped, draped in a standard surgical fashion. The right radiocephalic arteriovenous fistula was cannulated. A fistulogram and retrograde radial artery angiogram were performed showing no intervention was required. The catheter was removed and manual compression applied at the puncture site for hemostasis. Dressings were then applied. The patient tolerated the procedure well. All instrument, sponge and needle counts were correct at the end of the case. There were no complications. Dr. Pereira was present for directed the entire case. The patient was transferred to the holding area and subsequently discharged in stable condition.
== END | disposition home or self-care (01) ==
LOC: M IRPRO 09:35
PROVIDERS: ATTEND Surgery Vascular Surgery
DX: T82.590A Other mechanical complication of surgically created arteriovenous fistula, initial encounter (principal); N18.9 Chronic kidney disease, unspecified
CPT/HCPCS: 36215; 36901; 75710; C1894; Q9967

== ENCOUNTER → 2018-08-06 | Outpatient (CLI) | payer MEDICARE ==
[~2018-08-06] MED LIST changes: -BUPIVACAINE HCL 0.5% 10 ML VIAL As Ordered ONE; -ISOVUE-300 61% 100ML VIAL (Q9967) As Ordered ONE; -LIDOCAINE 2% MDV 20 ML VIAL As Ordered ONE; -MIDAZOLAM INJ 2 MG/2 ML VIAL (J2250) As Ordered ONE; -fentaNYL 100 MCG/2 ML INJECTION (J3010) As Ordered ONE
[2018-08-06 09:08] LABS: ALBUMIN 3.5 GM/DL (3.2-5.2); BILIRUBIN,TOTAL 0.4 MG/DL (0.2-1.0); CALCIUM LEVEL 9.1 MG/DL (8.8-10.2); CREATININE FOR GFR 2.06 MG/DL (0.55-1.30); GLOMERULAR FILTRATION RATE 24.5 (>32); MAGNESIUM LEVEL 2.3 MG/DL (1.8-2.4); POTASSIUM SERUM 4.1 MEQ/L (3.5-5.1); TOTAL PROTEIN 6.6 GM/DL (6.4-8.2)
[2018-08-06 10:08] LABS: HEMOGLOBIN A1c 6.3 %
== END ==
LOC: M LAB 07:48
PROVIDERS: ATTEND Internal Medicine
DX: I12.9 Hypertensive chronic kidney disease with stage 1 through stage 4 chronic kidney disease, or unspecified chronic kidney disease (principal); E11.22 Type 2 diabetes mellitus with diabetic chronic kidney disease

== ENCOUNTER → 2018-08-24 | Outpatient (REF) | payer MEDICARE ==
[2018-08-24 14:03] LABS: PERCENT SATURATION 25.3 % (13.2-45.0)
== END ==
LOC: M LAB REF 13:00
PROVIDERS: ATTEND Internal Medicine Nephrology
DX: N18.9 Chronic kidney disease, unspecified (principal); D63.1 Anemia in chronic kidney disease

== ENCOUNTER → 2018-10-23 | Outpatient (REF) | payer MEDICARE | LOC: M SFHCPLAZ 11:48 | PROVIDERS: ATTEND Dermatology | DX: L57.0 Actinic keratosis (principal) ==

== ENCOUNTER → 2018-10-30 | Outpatient (CLI) | payer MEDICARE ==
[2018-10-30 09:16] LABS: ALBUMIN 2.9 GM/DL (3.2-5.2); BILIRUBIN,TOTAL 0.3 MG/DL (0.2-1.0); CALCIUM LEVEL 8.7 MG/DL (8.8-10.2); CHOLESTEROL RISK RATIO 3.066 (<5); CREATININE FOR GFR 1.99 MG/DL (0.55-1.30); GLOMERULAR FILTRATION RATE 25.5 (>32); MAGNESIUM LEVEL 2.5 MG/DL (1.8-2.4); TOTAL PROTEIN 6.5 GM/DL (6.4-8.2)
[2018-10-30 10:18] LABS: HEMOGLOBIN A1c 7.5 %
== END ==
LOC: M LAB 07:56
PROVIDERS: ATTEND Internal Medicine
DX: I12.9 Hypertensive chronic kidney disease with stage 1 through stage 4 chronic kidney disease, or unspecified chronic kidney disease (principal); N18.9 Chronic kidney disease, unspecified; E11.22 Type 2 diabetes mellitus with diabetic chronic kidney disease; E78.2 Mixed hyperlipidemia

== ENCOUNTER → 2018-11-12 | Outpatient (REF) | payer MEDICARE ==
[~2018-11-12] MED LIST changes: +CARV25TA PO; +CIPR-249 PO; +INSUHUMDS SC; +JANU25TA PO; +MULTCAP PO; +NORC1TAB7 PO; +PATIENT COMMENTS; +TRAM50TA2 PO
[2018-11-12 17:56] LABS: PERCENT SATURATION 19.2 % (13.2-45.0)
== END ==
LOC: M LAB REF 16:49
PROVIDERS: ATTEND Internal Medicine Nephrology
DX: N18.3 Chronic kidney disease, stage 3 (moderate) (principal); D63.1 Anemia in chronic kidney disease

== ENCOUNTER → 2018-11-22 | Outpatient (CLI) | payer MEDICARE ==
[~2018-11-22] VITALS: Ht 167.6 cm; Wt 72.7 kg
[~2018-11-22] MED LIST changes: -CARV25TA PO; -CIPR-249 PO; -INSUHUMDS SC; +IRON SUCROSE 25 MG in NS 50 ML IV ONE; +IRON SUCROSE 275 MG in NS 250 ML IV ONE; -JANU25TA PO; -MULTCAP PO; -NORC1TAB7 PO; -PATIENT COMMENTS; -TRAM50TA2 PO
[2018-11-22 11:00] VITALS: BP 163/66
[2018-11-22 13:15] VITALS: BP 192/80
[2018-11-22 14:15] VITALS: BP 176/60
[2018-11-22 15:15] VITALS: BP 178/62
[2018-11-22 16:57] VITALS: BP 180/60
[2018-11-22 17:15] VITALS: BP 176/60
== END ==
LOC: M INFU 10:59
PROVIDERS: ATTEND Internal Medicine Nephrology
DX: D50.9 Iron deficiency anemia, unspecified (principal); E87.2 Acidosis; E11.22 Type 2 diabetes mellitus with diabetic chronic kidney disease; Z88.0 Allergy status to penicillin; Z91.013 Allergy to seafood
CPT/HCPCS: 96365; 96366; J1756

== ENCOUNTER 2018-12-03 08:49 | Outpatient (CLI) | payer MEDICARE ==
[~2018-12-03] VITALS: Ht 167.6 cm; Wt 72.7 kg
[~2018-12-03 08:49] MED LIST changes: -IRON SUCROSE 25 MG in NS 50 ML IV ONE; -IRON SUCROSE 275 MG in NS 250 ML IV ONE
[2018-12-03 08:50] VITALS: BP 169/70
[2018-12-03] MEDS ORDERED: IRON SUCROSE 300 MG in NS 250 ML IV ONE (10:00)
[2018-12-03 10:15] VITALS: BP 159/62
[2018-12-03 11:05] VITALS: BP 148/60
[2018-12-03 12:45] VITALS: BP 170/70
[2018-12-03 13:05] VITALS: BP 168/70
== END 2018-12-03 13:05 | disposition home or self-care (01) ==
LOC: M INFU 08:49
PROVIDERS: ATTEND Internal Medicine Nephrology
DX: D50.9 Iron deficiency anemia, unspecified (principal)
CPT/HCPCS: 96365; 96366; J1756

== ENCOUNTER → 2018-12-24 | Outpatient (REF) | payer MEDICARE | LOC: M SFHCPLAZ 11:54 | PROVIDERS: ATTEND Dermatology | DX: D04.61 Carcinoma in situ of skin of right upper limb, including shoulder (principal) ==

== ENCOUNTER → 2019-01-14 | Outpatient (REF) | payer MEDICARE ==
[2019-01-14 14:03] LABS: PERCENT SATURATION 9.2 % (13.2-45.0)
== END ==
LOC: M LAB REF 13:07
PROVIDERS: ATTEND Internal Medicine Nephrology
DX: N18.9 Chronic kidney disease, unspecified (principal); D63.1 Anemia in chronic kidney disease

== ENCOUNTER 2019-01-22 10:07 | Emergency (ER) | payer MEDICARE ==
[2019-01-22] MEDS ORDERED: LANTINJ4 SC (10:31)
[2019-01-22] MEDS ORDERED: INSUHUMDS SC (10:31)
[2019-01-22] MEDS ORDERED: amLODIPine 5 MG TAB PO ONE (10:45)
[2019-01-22] MEDS ORDERED: CARVedilol 12.5 MG TAB PO ONE (10:45)
[2019-01-22 11:03] LABS: BASO # 0.1 10^3/uL (0.0-0.2); BASO % 0.7 % (0.0-1.0); EOS # 0.1 10^3/uL (0.0-0.5); EOS % 1.8 % (0.0-3.0); HEMATOCRIT 30.5 % (36.0-47.0); LYMPH % 14.4 % (24.0-44.0); MEAN CORPUSCULAR HEMOGLOBIN 29.3 pg (27.0-33.0); MEAN CORPUSCULAR HGB CONC 32.8 g/dl (32.0-36.5); MEAN CORPUSCULAR VOLUME 89.4 fl (80.0-96.0); MONO # 0.5 10^3/uL (0.0-0.8); MONO % 7.1 % (0.0-5.0); NEUTROPHILS # 5.1 10^3/uL (1.5-8.5); NEUTROPHILS % 75.6 % (36.0-66.0); PLATELET COUNT, AUTOMATED 242 10^3/uL (150-450); RED BLOOD COUNT 3.41 10^6/uL (4.00-5.40); WHITE BLOOD COUNT 6.8 10^3/uL (4.0-10.0)
[2019-01-22 11:28] LABS: ALBUMIN 3.4 GM/DL (3.2-5.2); BILIRUBIN,TOTAL 0.5 MG/DL (0.2-1.0); C REACTIVE PROTEIN QUANTITATIV 0.3 MG/DL (0.00-0.30); CALCIUM LEVEL 8.9 MG/DL (8.8-10.2); CREATININE FOR GFR 2.01 MG/DL (0.55-1.30); GLOMERULAR FILTRATION RATE 25.2 (>32); TOTAL PROTEIN 7.3 GM/DL (6.4-8.2)
--- NOTE | 2019-01-22 11:49 | REP ---
CT of the abdomen pelvis without IV and oral contrast for right flank pain and abdominal pain: There are no comparisons. The visualized lung perez are unremarkable except for curvilinear scarring and a small right pleural effusion. The unenhanced hepatic parenchyma is homogeneous. There is a tiny gallbladder calculus along the dependent wall. The gallbladder is otherwise unremarkable. The pancreas and spleen are unremarkable. The adrenals are unremarkable. There is bilateral renal cortical thinning, more advanced on the left and right. There is a hyperdense right renal cortical cyst. There are no renal calculi. There is no hydronephrosis. There are no ureteral calculi. There are no bladder calculi. There is air within the bladder. This is nonspecific and could be from recent bladder catheterization or could represent fistula with bowel. Additionally there are small air collections within the bladder wall. This may represent cystitis. The abdominal aorta is unremarkable except for calcified atheroma. There is no periaortic adenopathy or mass. There is no bowel distension or obstruction. There is wall thickening of the descending colon, nonspecific, but could represent colitis in the appropriate clinical setting. There is no pneumoperitoneum. There is no ascites. Pelvis: The uterus and adnexa are unremarkable. The terminal ileum and appendix are unremarkable. The bladder is as previously discussed. There is advanced right hip osteoarthritis. There is moderate left hip osteoarthritis. There is degenerative disc disease throughout the lumbar spine. Impression: There are no renal or ureteral calculi. There is no hydronephrosis. There is bilateral renal cortical thinning, more advanced on the left. There is a hyperdense left renal cyst. There is a air in the bladder. This could be from recent catheterization or from bowel fistulization. Additionally, there are small air collections within the bladder wall compatible with cystitis. No ascites or pneumoperitoneum. Wall thickening of the descending colon and sigmoid colon compatible with colitis in the appropriate clinical setting. Tiny gallbladder calculus. Electronically Signed by John Escalera MD 01/22/2019 11:40 A
[2019-01-22 11:57] LABS: ERYTHROCYTE SEDIMENTATION RATE 86 mm/hr (0-30)
[2019-01-22] MEDS ORDERED: ONDANSETRON 4MG/2ML VIAL (J2405) IV ONE (12:45)
[2019-01-22] MEDS ORDERED: MORPHINE 2 MG/ML 1ML VIAL (J2270) IV PRN (12:45)
--- NOTE | 2019-01-22 15:17 | REP ---
PELVIS RIGHT HIP: Three views. HISTORY: Pain. Comparison is made with today's CT study images. FINDINGS: AP pelvis and AP and frog-leg views right hip demonstrate severe arthritis of the right hip with subcortical cyst formation on both sides of the obliterated superior right hip joint space. There is sclerosis as well as osteophyte formation. Findings are consistent with advanced osteoarthritis. There is some diffuse osteopenia. There is fairly extensive vascular calcification. No flattening is seen in either femoral head. The left hip joint space is relatively preserved with minimal acetabular spurring. IMPRESSION: Severe osteoarthritis of the right hip with subcortical cyst formation and sclerosis on both sides of the hip articulation. No acute bony abnormality. Electronically Signed by Asher Horne MD 01/22/2019 03:34 P
[2019-01-22] MEDS ORDERED: NORC1TAB7 PO (16:36)
[2019-01-22] MEDS ORDERED: CIPROFLOXACIN 250 MG TAB PO ONE (16:45)
[2019-01-22] MEDS ORDERED: CIPR-249 PO (16:46)
[2019-01-22 17:17] VITALS: BP 188/70
--- NOTE | 2019-01-29 13:21 | ED PDOC ---
Post-Departure Follow-Up radiology report faxed to Ciarra Tse MD Jan 29, 2019 13:21
== END 2019-01-22 17:23 | disposition home or self-care (01) ==
LOC: M ED 10:07 → EDBD 10:07 → M ED 17:23
DX: N39.0 Urinary tract infection, site not specified (principal); M16.11 Unilateral primary osteoarthritis, right hip; I10 Essential (primary) hypertension; I25.10 Atherosclerotic heart disease of native coronary artery without angina pectoris; E11.9 Type 2 diabetes mellitus without complications; E78.49 Other hyperlipidemia; K21.9 Gastro-esophageal reflux disease without esophagitis; Z88.0 Allergy status to penicillin; Z88.1 Allergy status to other antibiotic agents; Z91.013 Allergy to seafood; Z79.899 Other long term (current) drug therapy; Z79.4 Long term (current) use of insulin; Z79.82 Long term (current) use of aspirin
CPT/HCPCS: 73502; 74176; 80053; 81001; 85025; 85652; 86140; 87088; 87186; 99284; J2270; J2405

== ENCOUNTER 2019-02-04 09:02 | Outpatient (CLI) | payer MEDICARE ==
[~2019-02-04] VITALS: Ht 167.6 cm; Wt 74.2 kg
[2019-02-04 09:30] VITALS: BP 154/62
[2019-02-04] MEDS ORDERED: NS 1,000 ML IV SCH (09:30)
[2019-02-04] MEDS ORDERED: FERRIC CARBOXYMALTOSE INJ 750 MG in NS 250 ML IV ONE (10:00)
[2019-02-04 10:20] VITALS: BP 148/64
[2019-02-04 11:25] VITALS: BP 142/58
[2019-02-04 12:45] VITALS: BP 138/52
[2019-02-04 13:25] VITALS: BP 152/60
== END 2019-02-04 13:25 | disposition home or self-care (01) ==
LOC: M INFU 09:02
PROVIDERS: ATTEND Internal Medicine Nephrology
DX: D50.9 Iron deficiency anemia, unspecified (principal); E11.22 Type 2 diabetes mellitus with diabetic chronic kidney disease; I12.9 Hypertensive chronic kidney disease with stage 1 through stage 4 chronic kidney disease, or unspecified chronic kidney disease; E78.2 Mixed hyperlipidemia; R76.8 Other specified abnormal immunological findings in serum; Z88.0 Allergy status to penicillin; Z88.1 Allergy status to other antibiotic agents; Z91.013 Allergy to seafood
CPT/HCPCS: 36415; 80053; 80061; 82784; 83036; 83883; 84165; 96365; 96366; J1439

== ENCOUNTER → 2019-02-04 | Outpatient (CLI) | payer MEDICARE ==
[~2019-02-04] MED LIST changes: +CIPR-249 PO; +INSUHUMDS SC; +NORC1TAB7 PO
[2019-02-04 10:38] LABS: HEMOGLOBIN A1c 6.6 %
[2019-02-04 10:44] LABS: ALBUMIN 3.5 GM/DL (3.2-5.2); ALT/SGPT 21 U/L (12-78); BILIRUBIN,TOTAL 0.6 MG/DL (0.2-1.0); BLOOD UREA NITROGEN 33 MG/DL (7-18); CALCIUM LEVEL 8.9 MG/DL (8.8-10.2); CARBON DIOXIDE LEVEL 27 MEQ/L (21-32); CHLORIDE LEVEL 107 MEQ/L (98-107); CHOLESTEROL LEVEL 139 MG/DL (<200); CHOLESTEROL RISK RATIO 2.438 (<5); CREATININE FOR GFR 2.26 MG/DL (0.55-1.30); GLUCOSE, FASTING 112 MG/DL (70-100); HDL CHOLESTEROL 57 MG/DL (>40); IMMUNOGLOBULIN G 889 MG/DL (681-1648); IMMUNOGLOBULIN M 66.9 MG/DL (40-230); LDL CHOLESTEROL 38 MG/DL (<100); NON-HDL-C 82 MG/DL; POTASSIUM SERUM 4.2 MEQ/L (3.5-5.1); SODIUM LEVEL 141 MEQ/L (136-145); TOTAL PROTEIN 7.1 GM/DL (6.4-8.2); TRIGLYCERIDES LEVEL 219 MG/DL (<150)
[2019-02-05 11:10] LABS: ALBUMIN % 55.2 % (55.8-66.1); ALPHA-1-GLOBULIN % 5.4 % (2.9-4.9); ALPHA-2-GLOBULINS % 16.4 % (7.1-11.8); BETA-1-GLOBULINS % 5.5 % (4.7-7.2); BETA-2-GLOBULINS % 6.1 % (3.2-6.5); GAMMA GLOBULIN % 11.4 % (11.1-18.8)
[2019-02-05 11:11] LABS: ALBUMIN 3.92 GM/DL (3.29-5.55); ALPHA-1-GLOBULINS 0.38 GM/DL (0.17-0.41); ALPHA-2-GLOBULINS 1.16 GM/DL (0.42-0.99); BETA-1-GLOBULINS 0.39 GM/DL (0.28-0.60); BETA-2-GLOBULINS 0.43 GM/DL (0.19-0.55); GAMMA GLOBULINS 0.81 GM/DL (0.65-1.58)
[2019-02-06 00:07] LABS: FREE KAPPA LIGHT CHAINS SERUM 61.3 mg/L (3.3-19.4); KAPPA/LAMBDA RATIO SERUM 2.45 (0.26-1.65)
== END ==
LOC: M LAB 09:00
PROVIDERS: ATTEND Internal Medicine
DX: E11.22 Type 2 diabetes mellitus with diabetic chronic kidney disease (principal); I12.9 Hypertensive chronic kidney disease with stage 1 through stage 4 chronic kidney disease, or unspecified chronic kidney disease; E78.2 Mixed hyperlipidemia; R76.8 Other specified abnormal immunological findings in serum

== ENCOUNTER 2019-02-11 12:20 | Outpatient (CLI) | payer MEDICARE ==
[~2019-02-11] VITALS: Ht 167.6 cm; Wt 74.8 kg
[2019-02-11 12:25] VITALS: BP 122/45
[2019-02-11] MEDS ORDERED: NS 1,000 ML IV SCH (13:00)
[2019-02-11] MEDS ORDERED: FERRIC CARBOXYMALTOSE INJ 750 MG in NS 250 ML IV ONE (13:00)
[2019-02-11 13:15] VITALS: BP 110/67
[2019-02-11 14:30] VITALS: BP 129/45
== END 2019-02-11 14:45 | disposition home or self-care (01) ==
LOC: M INFU 12:20
PROVIDERS: ATTEND Internal Medicine Nephrology
DX: D50.9 Iron deficiency anemia, unspecified (principal); D47.2 Monoclonal gammopathy; D63.1 Anemia in chronic kidney disease; E11.22 Type 2 diabetes mellitus with diabetic chronic kidney disease; N18.4 Chronic kidney disease, stage 4 (severe); I12.9 Hypertensive chronic kidney disease with stage 1 through stage 4 chronic kidney disease, or unspecified chronic kidney disease; Z79.4 Long term (current) use of insulin; Z79.899 Other long term (current) drug therapy; Z87.891 Personal history of nicotine dependence
CPT/HCPCS: 96365; 96366; J1439

== ENCOUNTER 2019-02-13 10:15 | Outpatient (RCR) | payer MEDICARE ==
[2019-02-16] MEDS ORDERED: JANU25TA PO (00:01)
[2019-02-16] MEDS ORDERED: CARV25TA PO (00:01)
[2019-02-16] MEDS ORDERED: MULTCAP PO (00:10)
[2019-02-16] MEDS ORDERED: TRAM50TA2 PO (00:11)
[2019-02-16] MEDS ORDERED: PATIENT COMMENTS (00:12)
== END 2019-02-16 ==
LOC: M PT 10:15
PROVIDERS: ATTEND Internal Medicine
DX: Z47.89 Encounter for other orthopedic aftercare (principal)

== ENCOUNTER 2019-02-15 20:58 | Observation (INO) | payer MEDICARE ==
[~2019-02-15] VITALS: Ht 167.6 cm; Wt 67.1 kg
[2019-02-15] MEDS ORDERED: HumaLOG INSULIN (NovoLOG) PER UNIT SC SCH (21:00)
[2019-02-15] MEDS ORDERED: ADACEL/BOOSTRIX VACCINE (DIPHTH/PERTUSS/ACELL/TETANUS)0.5ML SYR (90715) IM ONE (21:30)
--- NOTE | 2019-02-15 21:31 | REPVR ---
PROCEDURE INFORMATION: Exam: CT Head Without Contrast Exam date and time: 02/15/2019 9:03 PM Age: 83 years old Clinical history: Injury or trauma; Fall; Initial encounter; Blunt trauma (contusions or hematomas); Additional info: Fall on plavix TECHNIQUE: Imaging protocol: Computed tomography of the head without contrast. Radiation optimization: All CT scans at this facility use at least one of these dose optimization techniques: automated exposure control; mA and/or kV adjustment per patient size (includes targeted exams where dose is matched to clinical indication); or iterative reconstruction. COMPARISON: CT Head without contrast 05/09/2014 4:16 PM FINDINGS: Brain: Decreased attenuation of the supratentorial white matter is likely secondary to chronic microvascular ischemia. No acute intracranial hemorrhage. Ventricles: Ventricular and subarachnoid spaces are age appropriate. Bones/joints: Unremarkable. No acute fracture. Sinuses: Visualized sinuses are unremarkable. No fluid levels. Mastoid air cells: Visualized mastoid air cells are well aerated. Soft tissues: Unremarkable. Vasculature: Intracranial vascular calcification. IMPRESSION: No acute intracranial abnormality. Electronically signed by: Warner Leal On 02/15/2019 21:31:22 PM
--- NOTE | 2019-02-15 21:35 | REPVR ---
PROCEDURE INFORMATION: Exam: CT Cervical Spine Without Contrast Exam date and time: 02/15/2019 9:03 PM Age: 83 years old Clinical history: Injury or trauma; Fall; Initial encounter; Blunt trauma; Additional info: Fall on plavix TECHNIQUE: Imaging protocol: Computed tomography images of the cervical spine without contrast. Radiation optimization: All CT scans at this facility use at least one of these dose optimization techniques: automated exposure control; mA and/or kV adjustment per patient size (includes targeted exams where dose is matched to clinical indication); or iterative reconstruction. COMPARISON: No relevant prior studies available. FINDINGS: Vertebrae: Nonspecific straightening of the cervical lordosis. Vertebral body height and AP alignment is preserved. Mild/moderate degenerative change about the dens. Moderate prevertebral osteophytosis. There are bilateral facet joint degenerative changes. No acute cervical spine fracture. Discs/Spinal canal/Neural foramina: Central canal stenosis greatest at C5-C6, likely moderate. Multilevel cervical foraminal stenoses. Soft tissues: Unremarkable. Lungs: Lung apices are normal. Vasculature: There has been previous right ICA stenting. IMPRESSION: No acute fracture. Electronically signed by: Warner Leal On 02/15/2019 21:35:08 PM
[2019-02-15 21:59] LABS: BASO # 0.1 10^3/uL (0.0-0.2); BASO % 0.7 % (0.0-1.0); EOS # 0.1 10^3/uL (0.0-0.5); EOS % 1.1 % (0.0-3.0); HEMATOCRIT 32.5 % (36.0-47.0); HEMOGLOBIN 10.7 g/dl (12.0-15.5); LYMPH % 12.8 % (24.0-44.0); MEAN CORPUSCULAR HEMOGLOBIN 29.2 pg (27.0-33.0); MEAN CORPUSCULAR HGB CONC 32.9 g/dl (32.0-36.5); MEAN CORPUSCULAR VOLUME 88.8 fl (80.0-96.0); MONO # 0.6 10^3/uL (0.0-0.8); MONO % 8.6 % (0.0-5.0); NEUTROPHILS # 5.7 10^3/uL (1.5-8.5); NEUTROPHILS % 76.3 % (36.0-66.0); PLATELET COUNT, AUTOMATED 196 10^3/uL (150-450); RED BLOOD COUNT 3.66 10^6/uL (4.00-5.40); WHITE BLOOD COUNT 7.5 10^3/uL (4.0-10.0)
[2019-02-15 22:35] LABS: BLOOD UREA NITROGEN 26 MG/DL (7-18); CALCIUM LEVEL 8.6 MG/DL (8.8-10.2); CARBON DIOXIDE LEVEL 27 MEQ/L (21-32); CHLORIDE LEVEL 106 MEQ/L (98-107); CK-MB VALUE MASS 1.2 NG/ML (<3.6); CPK CREATINE PHOSPHOKINASE 73 U/L (26-192); CREATININE FOR GFR 2.79 MG/DL (0.55-1.30); GLOMERULAR FILTRATION RATE 17.3 (>32); GLUCOSE, FASTING 231 MG/DL (70-100); MB/CK RELATIVE INDEX 1.64 (< OR =4); POTASSIUM SERUM 3.5 MEQ/L (3.5-5.1); SODIUM LEVEL 142 MEQ/L (136-145); TROPONIN I < 0.02 NG/ML (< 0.10)
[2019-02-15] MEDS ORDERED: NS 1,000 ML IV SCH (23:24)
[2019-02-16] MEDS ORDERED: MOM 30ML SUSPENSION UDC PO PRN
[2019-02-16] MEDS ORDERED: MAALOX 30 ML SUSP *UDC PO PRN
[2019-02-16] MEDS ORDERED: ACETAMINOPHEN 500 MG TAB PO PRN
[2019-02-16] MEDS ORDERED: CARV25TA PO (00:01)
[2019-02-16] MEDS ORDERED: JANU25TA PO (00:01)
[2019-02-16] MEDS ORDERED: MULTCAP PO (00:10)
[2019-02-16] MEDS ORDERED: TRAM50TA2 PO (00:11)
[2019-02-16] MEDS ORDERED: PATIENT COMMENTS (00:12)
[2019-02-16] MEDS ORDERED: GLUCOSE 4 GM CHEW TABLET PO PRN (01:00)
[2019-02-16] MEDS ORDERED: GLUCAGON FOR INJ 1 MG VIAL (J1610) SC PRN (01:00)
[2019-02-16] MEDS ORDERED: DEXTROSE 50% 50 ML SYRINGE IV PRN (01:00)
[2019-02-16] MEDS ORDERED: traMADol 50 MG TAB PO PRN (01:00)
[2019-02-16] MEDS ORDERED: PILL CUTTER 1 EACH XX PRN (01:15)
--- NOTE | 2019-02-16 02:09 | HPEPDOC ---
General Date of Admission 02/15/19 Date of Service: Feb 15, 2019 Chief Complaint The patient is a 83-year-old female admitted with a reason for visit of Fall Injury. Source: Patient, RN/, Old records History of Present Illness 83 year old female with PMH of CKD stage 4, IDDM with nephropathy, retinopathy and neuropathy, hypertension with hypertensive heart disease, CAD s/p CABG, hyperlipidemia, GERD, skin cancers, Abnormal SPEP, actinic keratosis, Vit B12 and Vit D deficiency, right sided sciatica, presented to the ED after a mechanical fall at home. SHe bent forward to put a paper in the trash and then was straightening up when she fell backwards and hit her head in the oven door which broke and she sustained a gash in the occipital region. She had a scalp injury for which she needed a staple. She had a CT head and CT cervical spine which were negative for any acute findings. However patient continued to feel very shaky and unstable and felt her gait was not as it normally is. She also said her sciatica was bothering her when she is walking though she was able to bear weight. Complained of pain in the back of the head throbbing type about 3/10. Also complained of pain in the right buttocks radiating down to the right knee along the front which is sharp electric shock like bothers her when she is waling or bearing weight . It is ok if she is sitting still. Home Medications Scheduled Amlodipine Besylate (Amlodipine Besylate) 5 Mg Tab, 5 MG PO BID, (Reported) Aspirin (Aspirin EC) 81 Mg Tab, 81 MG PO DAILY, (Reported) Carvedilol (Carvedilol) 25 Mg Tablet, 25 MG PO BID, (Reported) Clopidogrel Bisulfate (Plavix) 75 Mg Tab, 75 MG PO DAILY, (Reported) Cyanocobalamin (Vitamin B-12) (Vitamin B-12) 1,000 Mcg Tab, 1,000 MCG PO DAILY, (Reported) Folic Acid (Folic Acid) 1 Mg Tab, 1 MG PO DAILY, (Reported) Glipizide (Glipizide ER) 5 Mg Tab, 2.5 MG PO DAILY, (Reported) Insulin Glargine,Hum.rec.anlog (Lantus Solostar) 100 Unit/1 Ml Insuln.pen, 42 UNITS SC QAM, (Reported) Insulin Human Lispro (Humalog) 100 Unit/1 Ml Vial, 5 UNITS SC DAILY for at noon, (Reported) Multivitamin (Multivitamins) 1 Each Capsule, 1 CAP PO DAILY, (Reported) Alston-3 Fatty Acids/Fish Oil (Fish Oil 1,200 mg Softgel) 1 Cap Cap, 2 CAP PO BID, (Reported) Pantoprazole Sodium (Pantoprazole Sodium) 40 Mg Tab, 40 MG PO DAILY, (Reported) Rosuvastatin Calcium (Crestor) 40 Mg Tab, 40 MG PO DAILY, (Reported) Sitagliptin Phosphate (Januvia) 25 Mg Tablet, 25 MG PO DAILY, (Reported) Torsemide (Torsemide) 20 Mg Tab, 20 MG PO DAILY, (Reported) Vit A/Vit C/Vit E/Zinc/Copper (Preservision Areds Softgel) 1 Cap Cap, 1 CAP PO DAILY, (Reported) Scheduled PRN Acetaminophen (Tylenol Arthritis) 650 Mg Tab, 1,300 MG PO Q8HP PRN for PAIN, (Reported) Nitroglycerin (Nitroglycerin) 0.4 Mg Sub, 0.4 MG SL PRN PRN for CHEST PAIN, (Reported) Tramadol HCl (Tramadol HCl) 50 Mg Tablet, 50 MG PO Q4H PRN for PAIN, (Reported) Miscellaneous Medications [Patient Comments] , (Reported) PATIENT DOES NOT KNOW HER MEDICATIONS. ACTIVE PRESCRIPTIONS VERIFIED WITH PREFERRED PHARMACY. Allergies Coded Allergies: Penicillins (Verified Allergy, Mild, rash, 01/22/19) erythromycin base (Verified Adverse Reaction, Mild, nausea vomiting, 01/22/19) shrimp (Verified Adverse Reaction, Mild, vomiting, 01/22/19) Past Medical History Medical History TYPE 2 DIABETES MELLITUS WITH DIABETIC CHRONIC KIDNEY DISEASE HYPERTENSION WITH RENAL DISEASE CHRONIC KIDNEY DISEASE, STAGE 4 (SEVERE) ATHEROSCLEROTIC HEART DISEASE OF [place] CORONARY ARTERY MIXED HYPERLIPIDEMIA VITAMIN D DEFICIENCY, UNSPECIFIED PERSONAL HISTORY OF DISEASES OF THE BLOOD AND BLOOD-FORMING ORGANS AND CERTAIN DISORDERS INVOLVING THE IMMUNE MECHANISM RETINAL HEMORRHAGE, UNSPECIFIED EYE GASTRO-ESOPHAGEAL REFLUX DISEASE WITHOUT ESOPHAGITIS SENIOR CARE CURRENT USE OF INSULIN ELEVATED SERUM IMMUNOGLOBULIN FREE LIGHT CHAIN LEVEL VITAMIN B12 DEFICIENCY PERSONAL HISTORY OF OTHER MALIGNANT NEOPLASM OF SKIN 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 PLASTIC SURGERY TO CORRECT INCISION ON FACE 01/2018 FISTULA PLACED RIGHT WRIST-DR. SO; THIS HAS FAILED 06/14/2018 SQUAMOUS CELL CANCER RESECTED FROM LEFT FOREARM 10/2018 Family History FATHER: , DM, HEART DISEASE MOTHER: , [place] A-FIB/CHADSVASC A-FIB History Current/History of A-Fib/PAF?: No Review of Systems Constitutional: Denies: Chills, Fever, Night Sweats Eyes: Denies: Pain, Vision change ENT: Reports: Other Symptoms (staple in the occipital area. ); Denies: Head Aches, Ear Pain, Dysphagia Skin: Denies: Rash, Lesions, Breakdown Pulmonary: Denies: Dyspnea, Cough Cardiovascular: Denies: Chest Pain, Palpitations, Orthopnea, Paroxysmal Noc. Dyspnea, Lt Headedness Gastrointestinal: Denies: Nausea, Vomiting, Abdominal Pain, Diarrhea Genitourinary: Denies: Dysuria, Frequency, Incontinence, Retention Hematologic: Denies: Bruising, Bleeding Excessively Musculoskeletal: Reports: Neck Pain, Leg Pain (right) Neurological: Reports: Weakness Physical Examination General Exam: Positive: Alert, Cooperative, No Acute Distress Eye Exam: Positive: PERRLA, Conjunctiva & lids normal, EOMI; Negative: Sclera icteric ENT Exam: Positive: Atraumatic, Mucous membr. moist/pink, Pharynx Normal Neck Exam: Positive: Supple; Negative: JVD, thyromegaly Chest Exam: Positive: Clear to auscultation, Normal air movement Heart Exam: Positive: Rate Normal, Regular Rhythm, Normal S1, Normal S2; Negative: Murmurs, Rubs Abdomen Exam: Positive: Normal bowel sounds, Soft; Negative: Tenderness, Hepatospenomegaly Extremity Exam: Positive: Normal pulses; Negative: Clubbing, Cyanosis, Edema Skin Exam: Positive: Nl turgor and temperature; Negative: Breakdown, Lesion Neuro Exam: Positive: Normal Speech, Strength at 5/5 X4 ext, Normal Tone Psych Exam: Positive: Mental status NL, Mood NL, Oriented x 3 Vital Signs Vital Signs Date Time Temp Pulse Resp B/P (MAP) Pulse Ox O2 Delivery O2 Flow Rate FiO2 02/15/19 22:30 61 172/79 (110) 98 Room Air 02/15/19 21:19 18 02/15/19 21:18 98.2 Laboratory Data Labs 24H Laboratory Tests 2 02/15/19 21:54: Immature Granulocyte % (Auto) 0.5, Neutrophils (%) (Auto) 76.3H, Lymphocytes (%) (Auto) 12.8L, Monocytes (%) (Auto) 8.6H, Eosinophils (%) (Auto) 1.1, Basophils (%) (Auto) 0.7, Neutrophils # (Auto) 5.7, Lymphocytes # (Auto) 1.0L, Monocytes # (Auto) 0.6, Eosinophils # (Auto) 0.1, Basophils # (Auto) 0.1, Nucleated Red Blood Cells % (auto) 0.0, Anion Gap 9, Glomerular Filtration Rate 17.3L, Calcium Level 8.6L, Total Creatine Kinase 73, Creatine Kinase MB 1.2, Creatine Kinase MB Relative Index 1.64, Troponin I < 0.02 CBC/BMP Laboratory Tests 02/15/19 21:54 Assessment/Plan 83 year old female with PMH of CKD stage 4, IDDM with nephropathy, retinopathy and neuropathy, hypertension with hypertensive heart disease, CAD s/p CABG, hyperlipidemia, GERD, skin cancers, Abnormal SPEP, actinic keratosis, Vit B12 and Vit D deficiency, right sided sciatica, presented to the ED after a mechanical fall at home. Mechanical fall with scalp injury tylenol and tramadol for pain. has a staple in the scalp NEEL on CKD stage 4 Vs progression of CKD baseline creatinine this year looks like 2 to 2.2 mild elevation from baseline will hold torsemide give IVF will recheck tomorrow Has a failed AVF fistula on the right hand. IDDM will continue levemir at lower dosage and lispro januvia and glipizide Hypertension continue amlodipine and coreg CAD s/p CABG continue asa, plavix, coreg, statin Hyperlipidemia continue statin. Right Sciatica continue tramadol, tylenol. PT Plan / VTE VTE Prophylaxis Ordered?: Yes EJ VALENZUELA MD Feb 15, 2019 23:47
[2019-02-16] MEDS ORDERED: amLODIPine 5 MG TAB PO ONE (02:15)
[2019-02-16 03:24] VITALS: BP 196/64
[2019-02-16 03:54] VITALS: BP 190/60
[2019-02-16] MEDS ORDERED: **hydrALAZINE HCL** 25 MG TAB PO PRN (04:15)
[2019-02-16] MEDS ORDERED: METOPROLOL TART 25 MG TABLET PO ONE (04:15)
[2019-02-16 05:00] VITALS: BP 178/62
[2019-02-16 06:00] VITALS: BP 177/71
[2019-02-16] MEDS ORDERED: HumaLOG INSULIN (NovoLOG) PER UNIT SC SCH (07:30)
[2019-02-16 08:35] LABS: HEMATOCRIT 31.4 % (36.0-47.0); HEMOGLOBIN 10.3 g/dl (12.0-15.5); MEAN CORPUSCULAR HEMOGLOBIN 29.1 pg (27.0-33.0); MEAN CORPUSCULAR HGB CONC 32.8 g/dl (32.0-36.5); MEAN CORPUSCULAR VOLUME 88.7 fl (80.0-96.0); PLATELET COUNT, AUTOMATED 170 10^3/uL (150-450); RED BLOOD COUNT 3.54 10^6/uL (4.00-5.40); WHITE BLOOD COUNT 9.3 10^3/uL (4.0-10.0)
[2019-02-16 08:47] VITALS: BP 176/69
[2019-02-16 08:53] LABS: CALCIUM LEVEL 8.2 MG/DL (8.8-10.2); CREATININE FOR GFR 2.53 MG/DL (0.55-1.30); GLOMERULAR FILTRATION RATE 19.3 (>32); POTASSIUM SERUM 3.1 MEQ/L (3.5-5.1)
[2019-02-16] MEDS ORDERED: OCUVITE 1 TAB PO SCH (09:00)
[2019-02-16] MEDS ORDERED: ROSUVASTATIN 10 MG TAB (CRESTOR) PO SCH (09:00)
[2019-02-16] MEDS ORDERED: CARVedilol 12.5 MG TAB PO SCH (09:00)
[2019-02-16] MEDS ORDERED: TORSEMIDE 20 MG TAB PO SCH (09:00)
[2019-02-16] MEDS ORDERED: DOCUSATE SODIUM 100 MG CAP PO SCH (09:00)
[2019-02-16] MEDS ORDERED: PANTOPRAZOLE 40MG TAB (PROTONIX) PO SCH (09:00)
[2019-02-16] MEDS ORDERED: CYANOCOBALAMIN 500 MCG TAB PO SCH (09:00)
[2019-02-16] MEDS ORDERED: FOLIC ACID 1 MG TAB PO SCH (09:00)
[2019-02-16] MEDS ORDERED: amLODIPine 5 MG TAB PO SCH (09:00)
[2019-02-16] MEDS ORDERED: CLOPIDOGREL 75 MG TAB PO SCH (09:00)
[2019-02-16] MEDS ORDERED: HEPARIN SOD (PORCINE) 5000 UNITS/ML VIAL (J1644 PER 1000UNITS) SC SCH (09:00)
[2019-02-16] MEDS ORDERED: glipiZIDE XL 5 MG TABCR PO SCH (09:00)
[2019-02-16] MEDS ORDERED: ASPIRIN 81 MG ENTERIC TAB PO SCH (09:00)
[2019-02-16] MEDS ORDERED: SITagliptin 50 MG TAB (JANUVIA) PO SCH (09:00)
[2019-02-16] MEDS ORDERED: LEVEMIR (INSULIN DETEMIR) 1 UNITS/0.01ML SC SCH (09:00)
--- NOTE | 2019-02-16 10:28 | IPNPDOC ---
Text Note Date of Service The patient was seen on 02/16/19. NOTE SUBJECTIVE: Augustina is an 83-year-old female who was admitted overnight after sustaining a mechanical fall at home when she fell after standing up from throwing out a piece of paper. She states that she feels back to her baseline today, and she feels much more secure in moving around as she normally does than she did last night. She would like to go home. She denies any fevers, chills, shortness of breath, palpitations, leg swelling. She lives at home alone but does have a life alert and friends that visit her on a daily basis. OBJECTIVE: Vitals: See below General: Elderly appearing female in no acute distress lying in bed HEENT: 1 cm scalp laceration in the posterior aspect of the patient's head with a staple in place. Eyes are clear, mucous membranes are moist Neck: Supple, nontender, no JVD. Lungs: Clear to auscultation bilaterally; no wheezes, rhonchi, or rales Heart: Regular rate and rhythm; no murmurs, gallops, or rubs Abdomen: Normoactive bowel sounds, nontender to palpation, nondistended Extremities: No clubbing cyanosis or edema bilaterally Neuro: Appropriate speech, answers questions appropriately. ASSESSMENT: 83 year old female who presented to the emergency department last night after a mechanical fall at home. She had bend forward to put a paper in the trash can, and as she was straightening up she fell backwards, hitting her head on the abdo men door, sustaining a gash in the occipital region. She has scalp injury for she needed a staple. CT head and CT cervical spine were negative for acute findings. She was admitted for observation due to feeling very shaky and unstable, as well as feeling like her gait was not at her baseline. Lab work also revealed slight worsening of her renal function (baseline creatinine around 2.2, in the ED it was 2.8). She does have a past medical history of CKD stage 4, diabetes mellitus on insulin with nephropathy/retinopathy/neuropathy, hypertension with hypertensive heart disease, CAD s/p CABG, hyperlipidemia, GERD, skin cancers, Abnormal SPEP, actinic keratosis, Vit B12 and Vit D deficiency, right sided sciatica. PLAN: 1. Mechanical Fall at home. She feels that she is back to her baseline. CT of the head and cervical spine were negative for acute findings. She was cleared by physical therapy. She lives alone at home but has a life alert and friends who come to visit her on a daily basis. 2. Acute kidney injury superimposed on chronic kidney disease stage IV. Creatinine improving. She should follow up with her main galley scullion. 3. Diabetes mellitus, on insulin. Continue with her home medications 4. Hypertension. Continue with her home medications 5. Coronary artery disease status post CABG. Continue on home medications 6. Hyperlipidemia. Continue statin therapy 7. Right-sided sciatica. Continue all medications and physical therapy. Disposition: Discharge home, follow-up with primary care provider and nephrology within 1-2 weeks I have personally evaluated and examined the patient. Discussed with residents and student regarding plan of care and agree with the above assessment and plan. VS,Fishbone, I+O VS, Fishbone, I+O Laboratory Tests 02/15/19 21:54 02/16/19 08:13 Vital Signs Date Time Temp Pulse Resp B/P (MAP) Pulse Ox O2 Delivery O2 Flow Rate FiO2 02/16/19 08:47 67 176/69 02/16/19 06:00 97.9 16 96 Room Air I&O- Last 24 Hours up to 6 AM 02/16/19 06:00 Intake Total 340 ml Balance 340 ml GME ATTESTATION GME ATTESTATION My faculty preceptor for this patient encounter was physically present during the encounter and was fully available. All aspects of the patient interview, examination, medical decision making process, and medical care plan development were reviewed and approved by the faculty preceptor. The faculty preceptor is aware and concurs with the plan as stated in the body of this note and will attest to such by his/her cosignature. DEANNA FITCH D.O. Feb 16, 2019 10:28 ESTEFANIA MUNOZ MD Feb 16, 2019 12:13
--- NOTE | 2019-02-17 07:22 | ECGEPIP ---
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
--- NOTE | 2019-02-26 18:21 | DSES ---
DATE OF ADMISSION: 02/15/2019 DATE OF DISCHARGE: 02/16/2019 DISCHARGE DIAGNOSES: 1. Mechanical fall at home. 2. Acute kidney injury superimposed on chronic kidney disease, stage IV. 3. Diabetes mellitus, on insulin. 4. Hypertension. 5. Coronary artery disease status post coronary artery bypass graft (CABG). 6. Hyperlipidemia. 7. Right-sided sciatica. CONSULTANTS: None. PROCEDURES: None. HOSPITAL COURSE: This is an 83-year-old female who was admitted overnight on 02/15/2019 after sustaining a mechanical fall at home when she fell after standing up from throwing out a piece of paper. She was seen in the emergency department where a CT of the head and cervical spine were negative for fractures or bony abnormalities. There was no bleeding on her head CT. She was admitted for monitoring because even though she had only sustained a minor laceration to her scalp that required one staple, she fell unsteady on her feet in the emergency department. She was given gentle IV fluids and the next morning felt much better. She passed physical therapy and she was meeting all discharge criteria. PHYSICAL EXAMINATION: VITAL SIGNS: Temperature is 97.9, pulse 64 and regular, respiratory rate 16, blood pressure 177/71, 96% on room air. GENERAL: Elderly-appearing female in no acute distress, lying in the bed. HEENT: 1 cm scalp laceration on the posterior aspect of the patient's head with a staple in place. Eyes were clear. Mucous membranes were moist. NECK: Supple, nontender. No jugular venous distention (JVD). LUNGS: Clear to auscultation bilaterally. No wheezes, rhonchi or rales. HEART: Regular rate and rhythm. No murmurs, gallops or rubs. ABDOMEN: Normoactive bowel sounds, nontender to palpation, nondistended. EXTREMITIES: No clubbing, cyanosis or edema bilaterally. NEUROLOGIC: Appropriate speech, answers questions appropriately. DISCHARGE MEDICATIONS: - Tylenol Arthritis 1300 mg by mouth every eight hours as needed for pain - amlodipine 5 mg by mouth twice a day - aspirin 81 mg by mouth daily - carvedilol 25 mg by mouth twice a day - Plavix 75 mg by mouth daily - vitamin B12 1000 mcg by mouth daily - folic acid 1 mg by mouth daily - glipizide 2.5 mg by mouth daily - Lantus SoloStar 42 units subcutaneous every morning - Humalog 5 units subcutaneous daily at noon - multivitamin one capsule by mouth daily - nitroglycerin 0.4 mg sublingual as needed for chest pain - fish oil 2400 mg by mouth twice a day - pantoprazole 40 mg by mouth daily - Crestor 40 mg by mouth daily - Januvia 25 mg by mouth daily - torsemide 20 mg by mouth daily - tramadol 50 mg by mouth every four hours as needed for pain - PreserVision AREDS softgel one capsule by mouth daily LABORATORY DATA: CBC: WBC 9.3, hemoglobin 10.30, hematocrit 31.4, platelets 170. Chemistry: Sodium 146, potassium 3.1, chloride 112, carbon dioxide 24, BUN 26, creatinine 2.53, glucose 119, calcium 8.2. IMAGING STUDIES: CT of the head done 02/15/2019 showed no acute intracranial abnormality. CT of the cervical spine done 02/15/2019 showed no acute fracture. DISPOSITION: Stable. ACTIVITY: As tolerated. DIET: Renal. FOLLOWUP: 1. Should be seen by her primary care provider in 7-10 days to remove the staple at the posterior scalp. 2. Acute kidney injury superimposed on chronic kidney disease, stage IV. Her creatinine was improving. She should followup with her supervisor publications. 32 minutes spent on discharge. I have personally evaluated and examined the patient. Discussed with resident regarding plan of care and agree with the above assessment and plan. JAY
== END 2019-02-16 11:36 | disposition home or self-care (01) ==
LOC: M ED 20:58 → INTOOBSV 23:47 → M ED INP 23:47 → M MSPAV 02-16 03:08 → UNDODISIN 02-16 11:36
PROVIDERS: ADMIT Internal Medicine Nephrology; ATTEND Internal Medicine Nephrology
DX: N17.9 Acute kidney failure, unspecified (principal); N18.4 Chronic kidney disease, stage 4 (severe); S01.01XA Laceration without foreign body of scalp, initial encounter; W01.198A Fall on same level from slipping, tripping and stumbling with subsequent striking against other object, initial encounter; Y92.098 Other place in other non-institutional residence as the place of occurrence of the external cause; E11.21 Type 2 diabetes mellitus with diabetic nephropathy; I12.9 Hypertensive chronic kidney disease with stage 1 through stage 4 chronic kidney disease, or unspecified chronic kidney disease; E78.5 Hyperlipidemia, unspecified; M54.31 Sciatica, right side; E11.319 Type 2 diabetes mellitus with unspecified diabetic retinopathy without macular edema; E11.40 Type 2 diabetes mellitus with diabetic neuropathy, unspecified; I25.10 Atherosclerotic heart disease of native coronary artery without angina pectoris; E55.9 Vitamin D deficiency, unspecified; E53.8 Deficiency of other specified B group vitamins; R26.81 Unsteadiness on feet; L57.0 Actinic keratosis; Z85.828 Personal history of other malignant neoplasm of skin; Z87.891 Personal history of nicotine dependence; Z79.899 Other long term (current) drug therapy; Z79.82 Long term (current) use of aspirin; Z79.02 Long term (current) use of antithrombotics/antiplatelets; Z79.4 Long term (current) use of insulin; Z95.1 Presence of aortocoronary bypass graft; Z88.0 Allergy status to penicillin; Z88.1 Allergy status to other antibiotic agents; Z91.013 Allergy to seafood; Z23 Encounter for immunization
CPT/HCPCS: 12001; 36415; 70450; 72125; 80048; 82550; 82553; 84484; 85025; 85027; 90471; 90715; 93005; 93041; 94760; 96360; 96372; 97161; 99285; J1644

== ENCOUNTER → 2019-02-22 | Outpatient (CLI) | payer MEDICARE ==
[~2019-02-22] MED LIST changes: +CARV25TA PO; +JANU25TA PO; +MULTCAP PO; +PATIENT COMMENTS; +TRAM50TA2 PO
[2019-02-22 15:26] LABS: CALCIUM LEVEL 8.3 MG/DL (8.8-10.2); CREATININE FOR GFR 2.44 MG/DL (0.55-1.30); GLOMERULAR FILTRATION RATE 20.1 (>32); PHOSPHORUS LEVEL 1.9 MG/DL (2.5-4.9); POTASSIUM SERUM 4.6 MEQ/L (3.5-5.1)
== END ==
LOC: M PLALAB 09:37
PROVIDERS: ATTEND Internal Medicine Cardiovascular Disease
DX: I50.32 Chronic diastolic (congestive) heart failure (principal)

== ENCOUNTER 2019-03-15 10:45 | Outpatient (RCR) | payer MEDICARE | END 2019-03-19 | LOC: M PT 10:45 | PROVIDERS: ATTEND Internal Medicine | DX: M46.1 Sacroiliitis, not elsewhere classified (principal); R10.31 Right lower quadrant pain ==

== ENCOUNTER → 2019-03-26 | Outpatient (CLI) | payer MEDICARE ==
[2019-03-26 12:54] LABS: ALBUMIN 3.3 GM/DL (3.2-5.2); CALCIUM LEVEL 8.4 MG/DL (8.8-10.2); CREATININE FOR GFR 2.49 MG/DL (0.55-1.30); GLOMERULAR FILTRATION RATE 19.7 (>32); PHOSPHORUS LEVEL 3.8 MG/DL (2.5-4.9); POTASSIUM SERUM 5.2 MEQ/L (3.5-5.1)
== END ==
LOC: M LAB 10:14
PROVIDERS: ATTEND Internal Medicine Cardiovascular Disease
DX: I50.32 Chronic diastolic (congestive) heart failure (principal)

== ENCOUNTER → 2019-04-17 | Outpatient (REF) | payer MEDICARE ==
[2019-04-17 14:28] LABS: ALBUMIN 3.5 GM/DL (3.2-5.2); CALCIUM LEVEL 8.6 MG/DL (8.8-10.2); CREATININE FOR GFR 2.36 MG/DL (0.55-1.30); GLOMERULAR FILTRATION RATE 20.9 (>32); PHOSPHORUS LEVEL 4.7 MG/DL (2.5-4.9); POTASSIUM SERUM 4.8 MEQ/L (3.5-5.1)
== END ==
LOC: M LAB REF 12:41
PROVIDERS: ATTEND Internal Medicine Cardiovascular Disease
DX: I50.32 Chronic diastolic (congestive) heart failure (principal)

== ENCOUNTER → 2019-04-17 | Outpatient (REF) | payer MEDICARE ==
[2019-04-17 13:58] LABS: PERCENT SATURATION 24.5 % (13.2-45.0)
== END ==
LOC: M LAB REF 12:42
PROVIDERS: ATTEND Internal Medicine Nephrology
DX: D50.9 Iron deficiency anemia, unspecified (principal)

== ENCOUNTER → 2019-04-19 | Outpatient (RCR) | payer MEDICARE | LOC: M PT 03-22 10:11 | PROVIDERS: ATTEND Internal Medicine | DX: M46.1 Sacroiliitis, not elsewhere classified (principal); R10.31 Right lower quadrant pain ==

== ENCOUNTER 2019-04-23 11:10 | Outpatient (RCR) | payer MEDICARE | END 2019-05-18 | LOC: M PT 11:10 | PROVIDERS: ATTEND Internal Medicine | DX: M46.1 Sacroiliitis, not elsewhere classified (principal); R10.31 Right lower quadrant pain ==

== ENCOUNTER → 2019-04-24 | Outpatient (CLI) | payer MEDICARE ==
[2019-04-24 08:48] LABS: ALBUMIN 3.4 GM/DL (3.2-5.2); BILIRUBIN,TOTAL 0.4 MG/DL (0.2-1.0); CREATININE FOR GFR 2.2 MG/DL (0.55-1.30); GLOMERULAR FILTRATION RATE 22.7 (>32); POTASSIUM SERUM 4.3 MEQ/L (3.5-5.1); TOTAL PROTEIN 6.9 GM/DL (6.4-8.2)
[2019-04-24 10:09] LABS: HEMOGLOBIN A1c 5.7 %
== END ==
LOC: M LAB 07:30
PROVIDERS: ATTEND Internal Medicine
DX: I12.9 Hypertensive chronic kidney disease with stage 1 through stage 4 chronic kidney disease, or unspecified chronic kidney disease (principal); E11.22 Type 2 diabetes mellitus with diabetic chronic kidney disease

== ENCOUNTER → 2019-04-29 | Outpatient (REF) | payer MEDICARE | LOC: M LAB REF 09:08 | PROVIDERS: ATTEND Dermatology | DX: D23.39 Other benign neoplasm of skin of other parts of face (principal) ==

== ENCOUNTER → 2019-05-30 | Outpatient (REF) | payer MEDICARE | LOC: M LAB REF 09:30 | PROVIDERS: ATTEND Dermatology | DX: L57.0 Actinic keratosis (principal); L90.5 Scar conditions and fibrosis of skin ==

== ENCOUNTER → 2019-07-31 | Outpatient (CLI) | payer MEDICARE ==
[2019-07-31 08:12] LABS: ALBUMIN 2.9 GM/DL (3.2-5.2); BILIRUBIN,TOTAL 0.3 MG/DL (0.2-1.0); CALCIUM LEVEL 8.6 MG/DL (8.8-10.2); CHOLESTEROL RISK RATIO 3.282 (<5); CREATININE FOR GFR 2.08 MG/DL (0.55-1.30); GLOMERULAR FILTRATION RATE 24.2 (>32); MAGNESIUM LEVEL 2.1 MG/DL (1.8-2.4); POTASSIUM SERUM 3.9 MEQ/L (3.5-5.1); TOTAL PROTEIN 6.5 GM/DL (6.4-8.2)
[2019-07-31 09:24] LABS: HEMOGLOBIN A1c 6.7 %
== END ==
LOC: M LAB 07:13
PROVIDERS: ATTEND Internal Medicine
DX: I12.9 Hypertensive chronic kidney disease with stage 1 through stage 4 chronic kidney disease, or unspecified chronic kidney disease (principal); E11.22 Type 2 diabetes mellitus with diabetic chronic kidney disease; E78.2 Mixed hyperlipidemia

== ENCOUNTER → 2019-11-12 | Outpatient (CLI) | payer MEDICARE ==
[~2019-11-12] MED LIST changes: +ACET650T61 PO; +AMLO1TAB24 PO; -AMLO5TAB6 PO; +PANT40TA29 PO; -PANT40TA3 PO; -TYLE650T35 PO
[2019-11-12 09:57] LABS: CHOLESTEROL RISK RATIO 3.365 (<5)
== END ==
LOC: M LAB 07:40
PROVIDERS: ATTEND Internal Medicine
DX: E11.22 Type 2 diabetes mellitus with diabetic chronic kidney disease (principal); E78.2 Mixed hyperlipidemia; N18.9 Chronic kidney disease, unspecified

== ENCOUNTER → 2019-12-10 | Outpatient (CLI) | payer MEDICARE ==
--- NOTE | 2019-12-10 12:24 | REPMRS ---
Patient History The patient states she has not had a clinical breast exam in over a year. Patient is postmenopausal and is nulliparous. No known family history of cancer. 3D TOMOSYNTHESIS WAS PERFORMED. [facility] lifetime risk for breast cancer is 0.6%. MICHEAL ARSENIO DominicLaura Digital Woman Screen Mammo: December 10, 2019 - Exam #: [id number] Bilateral CC and MLO view(s) were taken. Technologist: Keesha Sanchez, Technologist Prior study comparison: July 21, 2016, bilateral digital mammo screening bilat, performed at [facility]. July 17, 2014, bilateral digital mammo screening bilat, performed at [facility]. FINDINGS: The breast tissue is heterogeneously dense. This may lower the sensitivity of mammography. There has been no change in the appearance of the mammogram from the prior studies. There is a moderate amount of residual fibroglandular tissue which is fairly symmetric. There is no interval development of dominant mass, areas of architectural distortion, or clustered microcalcification typical of malignancy. Assessment: BI-RADS/ACR category 1 mammogram. Negative Mammogram. Recommendation Routine screening mammogram in 1 year (for women over age 40). This mammogram was interpreted with the aid of an FDA-approved computer-aided dectection system. Electronically Signed By: John Lombardo MD 12/10/19 [id number]
== END ==
LOC: M WHC 11:22
PROVIDERS: ATTEND Internal Medicine
DX: Z12.31 Encounter for screening mammogram for malignant neoplasm of breast (principal)

== ENCOUNTER → 2020-04-14 | Outpatient (CLI) | payer MEDICARE ==
[~2020-04-14] MED LIST changes: +LISI10TA22 PO; -LISI10TA4 PO
[2020-04-14 09:43] LABS: CHOLESTEROL LEVEL 117 MG/DL (<200); CHOLESTEROL RISK RATIO 2.925 (<5); HDL CHOLESTEROL 40 MG/DL (>40); IMMUNOGLOBULIN G 721 MG/DL (681-1648); LDL CHOLESTEROL 27 MG/DL (<100); NON-HDL-C 77 MG/DL; TRIGLYCERIDES LEVEL 250 MG/DL (<150)
[2020-04-14 11:58] LABS: HEMOGLOBIN A1c 6.4 %
[2020-04-14 13:05] LABS: VITAMIN B12 LEVEL > 2000 PG/ML (247-911)
[2020-04-16 12:02] LABS: ALBUMIN 4.06 GM/DL (3.29-5.55); ALPHA-1-GLOBULIN % 4.1 % (2.9-4.9); ALPHA-1-GLOBULINS 0.29 GM/DL (0.17-0.41); ALPHA-2-GLOBULINS % 15.7 % (7.1-11.8); BETA-1-GLOBULINS 0.39 GM/DL (0.28-0.60); BETA-1-GLOBULINS % 5.6 % (4.7-7.2); BETA-2-GLOBULINS % 5.7 % (3.2-6.5); GAMMA GLOBULIN % 10.9 % (11.1-18.8); GAMMA GLOBULINS 0.76 GM/DL (0.65-1.58)
[2020-04-16 16:10] LABS: BETA 2 MICROGLOBULIN 5.4 mg/L (0.6-2.4); FREE KAPPA LIGHT CHAINS SERUM 74.9 mg/L (3.3-19.4); FREE LAMBDA LIGHT CHAINS SERUM 26.8 mg/L (5.7-26.3); KAPPA/LAMBDA RATIO SERUM 2.79 (0.26-1.65)
== END ==
LOC: M LAB 08:29
PROVIDERS: ATTEND Internal Medicine
DX: E11.22 Type 2 diabetes mellitus with diabetic chronic kidney disease (principal); R76.8 Other specified abnormal immunological findings in serum; E78.2 Mixed hyperlipidemia; E53.8 Deficiency of other specified B group vitamins

== ENCOUNTER → 2020-09-28 | Outpatient (CLI) | payer MEDICARE ==
[2020-09-28 10:47] LABS: HEMOGLOBIN A1c 6.2 %
[2020-09-28 11:08] LABS: ALBUMIN 3.4 GM/DL (3.2-5.2); ALT/SGPT 20 U/L (12-78); BILIRUBIN,TOTAL 0.4 MG/DL (0.2-1.0); BLOOD UREA NITROGEN 50 MG/DL (7-18); CALCIUM LEVEL 8.9 MG/DL (8.8-10.2); CARBON DIOXIDE LEVEL 23 MEQ/L (21-32); CHLORIDE LEVEL 110 MEQ/L (98-107); CHOLESTEROL LEVEL 114 MG/DL (<200); CHOLESTEROL RISK RATIO 2.478 (<5); CREATININE FOR GFR 2.57 MG/DL (0.55-1.30); GLOMERULAR FILTRATION RATE 18.9 (>32); GLUCOSE, FASTING 82 MG/DL (70-100); HDL CHOLESTEROL 46 MG/DL (>40); IMMUNOGLOBULIN G 847 MG/DL (681-1648); IMMUNOGLOBULIN M 76.5 MG/DL (40-230); LDL CHOLESTEROL 26 MG/DL (<100); NON-HDL-C 68 MG/DL; POTASSIUM SERUM 4.3 MEQ/L (3.5-5.1); SODIUM LEVEL 144 MEQ/L (136-145); TOTAL PROTEIN 7.3 GM/DL (6.4-8.2); TRIGLYCERIDES LEVEL 210 MG/DL (<150)
[2020-09-28 11:28] LABS: CREATININE, URINE 78.8 MG/DL; MAU/CREAT RATIO 630.7 MCG/MG (0.0-30.0)
[2020-09-29 14:16] LABS: ALBUMIN % 56.3 % (55.8-66.1); ALPHA-1-GLOBULIN % 5.2 % (2.9-4.9); ALPHA-2-GLOBULINS % 15.9 % (7.1-11.8); BETA-1-GLOBULINS % 5.5 % (4.7-7.2); BETA-2-GLOBULINS % 5.9 % (3.2-6.5); GAMMA GLOBULIN % 11.2 % (11.1-18.8)
[2020-09-29 14:17] LABS: ALBUMIN 4.11 GM/DL (3.29-5.55); ALPHA-1-GLOBULINS 0.38 GM/DL (0.17-0.41); ALPHA-2-GLOBULINS 1.16 GM/DL (0.42-0.99); BETA-2-GLOBULINS 0.43 GM/DL (0.19-0.55); GAMMA GLOBULINS 0.82 GM/DL (0.65-1.58)
== END ==
LOC: M LAB 08:50
PROVIDERS: ATTEND Internal Medicine
DX: I12.9 Hypertensive chronic kidney disease with stage 1 through stage 4 chronic kidney disease, or unspecified chronic kidney disease (principal); E11.22 Type 2 diabetes mellitus with diabetic chronic kidney disease; E78.2 Mixed hyperlipidemia; R76.8 Other specified abnormal immunological findings in serum

== ENCOUNTER 2020-10-03 05:03 | Inpatient (IN) | payer MEDICARE ==
[~2020-10-03] VITALS: Ht 170.2 cm; Wt 72.6 kg
[2020-10-03 05:36] LABS: BASO % 0.3 % (0.0-1.0); EOS # 0.1 10^3/uL (0.0-0.5); EOS % 0.4 % (0.0-3.0); HEMATOCRIT 29.1 % (36.0-47.0); HEMOGLOBIN 9.7 g/dl (12.0-15.5); LYMPH # 0.8 10^3/uL (1.5-5.0); LYMPH % 6.3 % (24.0-44.0); MEAN CORPUSCULAR HEMOGLOBIN 30.1 pg (27.0-33.0); MEAN CORPUSCULAR HGB CONC 33.3 g/dl (32.0-36.5); MEAN CORPUSCULAR VOLUME 90.4 fl (80.0-96.0); MONO % 7.9 % (2.0-8.0); NEUTROPHILS # 10.7 10^3/uL (1.5-8.5); NEUTROPHILS % 84.6 % (36.0-66.0); PLATELET COUNT, AUTOMATED 187 10^3/uL (150-450); RED BLOOD COUNT 3.22 10^6/uL (4.00-5.40); WHITE BLOOD COUNT 12.6 10^3/uL (4.0-10.0)
[2020-10-03 05:52] LABS: INR 1.04; PARTIAL THROMBOPLASTIN TIME 33.8 SECONDS (24.2-38.5); PROTHROMBIN TIME 13.8 SECONDS (12.5-14.3)
[2020-10-03 05:54] LABS: ERYTHROCYTE SEDIMENTATION RATE 91 mm/hr (0-30)
[2020-10-03 06:00] LABS: ALBUMIN 3.1 GM/DL (3.2-5.2); ALT/SGPT 19 U/L (12-78); BILIRUBIN,DIRECT 0.2 MG/DL (0.0-0.2); BILIRUBIN,TOTAL 0.6 MG/DL (0.2-1.0); BLOOD UREA NITROGEN 58 MG/DL (7-18); C REACTIVE PROTEIN QUANTITATIV 6.35 MG/DL (0.00-0.30); CALCIUM LEVEL 8.5 MG/DL (8.8-10.2); CARBON DIOXIDE LEVEL 21 MEQ/L (21-32); CHLORIDE LEVEL 109 MEQ/L (98-107); CREATININE FOR GFR 2.78 MG/DL (0.55-1.30); FREE T4 0.94 NG/DL (0.76-1.46); GLOMERULAR FILTRATION RATE 17.2 (>32); GLUCOSE, FASTING 185 MG/DL (70-100); LIPASE 193 U/L (73-393); NT-PRO BNP 7580 PG/ML (<450); POTASSIUM SERUM 4.5 MEQ/L (3.5-5.1); SODIUM LEVEL 139 MEQ/L (136-145); TOTAL PROTEIN 7.1 GM/DL (6.4-8.2)
[2020-10-03] MEDS ORDERED: LANTINJ4 SC (06:07)
[2020-10-03] MEDS ORDERED: FUROSEMIDE 100MG/10ML VIAL (J1940) IV ONE (06:55)
[2020-10-03] MEDS ORDERED: NITROGLYCERIN 2% OINT 1 GM *U/D* PKT TOP ONE (06:55)
[2020-10-03] MEDS ORDERED: cefTRIAXone SOD 1 GM in D5W MINI-BAG PLUS 50 ML IV ONE (08:00)
[2020-10-03] MEDS ORDERED: SPIR-10 PO (08:53)
[2020-10-03] MEDS ORDERED: ISOS1TAB35 PO (08:53)
[2020-10-03] MEDS ORDERED: CARV12.5 PO (08:53)
[2020-10-03] MEDS ORDERED: HOME MED LIST COMPLETE! XX SCH (08:55)
--- NOTE | 2020-10-03 09:31 | REPVR ---
PROCEDURE INFORMATION: Exam: XR Chest Exam date and time: 10/03/2020 5:39 AM Age: 85 years old Clinical indication: Other: Chest pain TECHNIQUE: Imaging protocol: XR of the chest. Views: 1 view. COMPARISON: CT Spine,cervical w/o contrast 02/15/2019 9:01 PM FINDINGS: Cardiac silhouette is not enlarged allowing for portable technique. Median sternotomy changes with multiple mediastinal surgical clips are present. There are bilateral streaky interstitial opacities with a few Sydnee B lines present. No consolidation. No pleural effusion or pneumothorax. IMPRESSION: Mild interstitial pulmonary edema. Underlying infection is not excluded in the appropriate clinical setting. Electronically signed by: Mariano Brush On 10/03/2020 09:31:30 AM
--- NOTE | 2020-10-03 10:34 | HPEPDOC ---
General Date of Admission 10/03/20 Date of Service: Oct 03, 2020 Chief Complaint The patient is a 85-year-old female admitted with a reason for visit of Chest Pain. Source: Patient, RN/MD History of Present Illness 85-year-old female with past medical history of Systolic and diastolic CHF with last EF of 50% with diastolic dysfunction in 2008 echo, diabetes, CKD stage IV, CAD status post CABG , hyperlipidemia, hypertension, GERD, presented to ED for chest pain and nausea which started around 10 PM last night. The chest pain was located at the left lower chest and in the epigastric region, was pressure-like about 8/10 in intensity present constantly throughout the night, associated with nausea. Chest x-ray in the ED showed bilateral pulmonary edema. Labs were significant for mildly elevated WBC at 13 , normal troponins , creatinine of 2.7 , proBNP 7580. She was diagnosed with congestive heart failure exacerbation and admitted under the hospitalist service. She received IV Lasix and Nitropaste in the emergency room which made her feel much better. Home Medications Scheduled Amlodipine Besylate (Amlodipine Besylate) 5 Mg Tab, 5 MG PO BID, (Reported) Aspirin (Aspirin EC) 81 Mg Tab, 81 MG PO DAILY, (Reported) Carvedilol (Carvedilol) 12.5 Mg Tablet, 12.5 MG PO DAILY, (Reported) Clopidogrel Bisulfate (Plavix) 75 Mg Tab, 75 MG PO DAILY, (Reported) Cyanocobalamin (Vitamin B-12) (Vitamin B-12) 1,000 Mcg Tab, 1,000 MCG PO DAILY, (Reported) Folic Acid (Folic Acid) 1 Mg Tab, 1 MG PO DAILY, (Reported) Glipizide (Glipizide ER) 5 Mg Tab, 2.5 MG PO DAILY, (Reported) Insulin Glargine,Hum.rec.anlog (Lantus Solostar) 100 Unit/1 Ml Insuln.pen, 10 UNIT SC QAM, (Reported) Insulin Human Lispro (Humalog) 100 Unit/1 Ml Vial, 6 UNITS SC DAILY, (Reported) @ 1200 Isosorbide Mononitrate (Isosorbide Mononitrate ER) 30 Mg Tab.er.24h, 30 MG PO BID, (Reported) [place]-3 Fatty Acids/Fish Oil (Fish Oil 1,200 mg Softgel) 1 Cap Cap, 2 CAP PO BID, (Reported) Pantoprazole Sodium (Pantoprazole Sodium) 40 Mg Tab, 40 MG PO DAILY, (Reported) Rosuvastatin Calcium (Crestor) 40 Mg Tab, 40 MG PO QPM, (Reported) Sitagliptin Phosphate (Januvia) 25 Mg Tablet, 25 MG PO DAILY, (Reported) Spironolactone (Spironolactone) 25 Mg Tablet, 12.5 MG PO DAILY, (Reported) Torsemide (Torsemide) 20 Mg Tab, 20 MG PO DAILY, (Reported) Vit A/Vit C/Vit E/Zinc/Copper (Preservision Areds Softgel) 1 Cap Cap, 1 CAP PO DAILY, (Reported) Scheduled PRN Acetaminophen (Tylenol Arthritis) 650 Mg Tab, 1,300 MG PO Q8HP PRN for PAIN, (Reported) Nitroglycerin (Nitroglycerin) 0.4 Mg Sub, 0.4 MG SL PRN PRN for CHEST PAIN, (Reported) Allergies Coded Allergies: Penicillins (Verified Allergy, Mild, rash, 10/03/20) erythromycin base (Verified Adverse Reaction, Mild, nausea vomiting, 10/03/20) shrimp (Verified Adverse Reaction, Mild, vomiting, 10/03/20) Past Medical History Medical History Systolic and diastolic CHF with last EF of 50% with diastolic dysfunction in 2008 echo, chronic right heart failure, moderate pulmonary hypertension ,diabetes, CKD stage IV, CAD status post CABG, carotid artery disease status post right carotid stent, hyperlipidemia, hypertension, GERD, vitamin B12 deficiency, vitamin D deficiency , multiple skin cancers both basal cell carcinoma and squamous cell carcinomas, actinic keratosis, retinal hemorrhage, chronic anemia , right-sided sciatica Surgical History TONSILLECTOMY CHILDHOOD COLONOSCOPY AND EGD 2003 RIGHT CAROTID STENT 02/24/2009 CABG, CORREIA TO LAD, SAPHENOUS GRAFT TO OM1 AND INTERMEDIATE BRANCH, AND ANOTHER SAPHENOUS GRAFT TO RCA 02/24/09 CATARACT SURGERY, BILATERALLY 09/2009 BASAL CELL CARCINOMA EXCISED FROM HER NOSE 12/2017? PLASTIC SURGERY TO CORRECT INCISION ON FACE 01/2018 FISTULA PLACED RIGHT WRIST-DR. SO; THIS HAS FAILED 06/14/2018 SQUAMOUS CELL CANCER RESECTED FROM LEFT FOREARM 10/2018 SQUAMOUS CELL CARCINOMA REMOVED FROM NOSE 05/2019 Family History FATHER: , DM, HEART DISEASE MOTHER: , [place] Social History * Smoker: Denies Alcohol: Denies Drugs: denies A-FIB/CHADSVASC A-FIB History Current/History of A-Fib/PAF?: No Review of Systems Constitutional: Denies: Chills, Fever, Night Sweats Eyes: Denies: Pain, Vision change ENT: Denies: Head Aches, Ear Pain, Dysphagia Skin: Reports: Dry; Denies: Rash, Lesions, Breakdown Pulmonary: Denies: Dyspnea, Cough Cardiovascular: Reports: Chest Pain, Edema; Denies: Palpitations, Orthopnea, Paroxysmal Noc. Dyspnea, Lt Headedness Gastrointestinal: Reports: Nausea; Denies: Vomiting, Abdominal Pain, Diarrhea Genitourinary: Denies: Dysuria, Frequency, Incontinence, Retention Hematologic: Denies: Bruising, Bleeding Excessively Musculoskeletal: Denies: Neck Pain, Back Pain, Joint Pain, Muscle Pain, Spasms Neurological: Denies: Weakness, Numbness, Change in speech, Confusion Psych: Reports: Mood Normal; Denies: Depression, Memory Issues Physical Examination General Exam: Positive: Alert, Cooperative, No Acute Distress Eye Exam: Positive: PERRLA, Conjunctiva & lids normal, EOMI, Other Eye Symptoms (Periorbital puffiness); Negative: Sclera icteric ENT Exam: Positive: Atraumatic, Mucous membr. moist/pink, Pharynx Normal Neck Exam: Positive: Supple, JVD; Negative: thyromegaly Chest Exam: Positive: Clear to auscultation, Normal air movement Heart Exam: Positive: Rate Normal, Regular Rhythm, Normal S1, Normal S2; Negative: Murmurs, Rubs Telemetry: Positive: No significant arrhythmia Abdomen Exam: Positive: Normal bowel sounds, Soft; Negative: Tenderness Extremity Exam: Positive: Edema (1+), Normal pulses; Negative: Clubbing, Cyanosis Psych Exam: Positive: Memory Intact, Oriented x 3 Vital Signs Vital Signs Date Time Temp Pulse Resp B/P (MAP) Pulse Ox O2 Delivery O2 Flow Rate FiO2 10/03/20 08:11 196/83 10/03/20 07:00 66 22 97 Nasal Cannula 2.0 10/03/20 05:20 98.7 Laboratory Data Labs 24H Laboratory Tests 2 10/03/20 05:11: POC Troponin I (Misc) 0.02 10/03/20 05:20: Immature Granulocyte % (Auto) 0.5, Neutrophils (%) (Auto) 84.6H, Lymphocytes (%) (Auto) 6.3L, Monocytes (%) (Auto) 7.9, Eosinophils (%) (Auto) 0.4, Basophils (%) (Auto) 0.3, Neutrophils # (Auto) 10.7H, Lymphocytes # (Auto) 0.8L, Monocytes # (Auto) 1.0H, Eosinophils # (Auto) 0.1, Basophils # (Auto) 0.0, Nucleated Red Blood Cells % (auto) 0.0, Erythrocyte Sedimentation Rate 91H, Prothrombin Time 13.8, Prothromb Time International Ratio 1.04, Activated Partial Thromboplast Time 33.8, Anion Gap 9, Glomerular Filtration Rate 17.2L, Calcium Level 8.5L, Total Bilirubin 0.6, Direct Bilirubin 0.2, Aspartate Amino Transf (AST/SGOT) 18, Alanine Aminotransferase (ALT/SGPT) 19, Alkaline Phosphatase 68, C-Reactive Protein, Quantitative 6.35H, DR-Igz-N-Type Natriuretic Peptide 7580H, Total Protein 7.1, Albumin 3.1L, Albumin/Globulin Ratio 0.8L, Lipase 193, Thyroid Stimulating Hormone (TSH) 2.000, Free Thyroxine 0.94 CBC/BMP Laboratory Tests 10/03/20 05:20 Microbiology Microbiology 10/03/20 Blood Culture, Received Pending 10/03/20 Blood Culture, Received Pending 10/03/20 Respiratory Virus Panel (PCR) (TEJAS) - Final, Complete Assessment/Plan 85-year-old female with past medical history of Systolic and diastolic CHF with last EF of 50% with diastolic dysfunction in 2008 echo, diabetes, CKD stage IV, CAD status post CABG , hyperlipidemia, hypertension, GERD, presented to ED for chest pain and nausea which started around 10 PM last night. The chest pain was located at the left lower chest and in the epigastric region, was pressure-like about 8/10 in intensity present constantly throughout the night, associated with nausea. Chest x-ray in the ED showed bilateral pulmonary edema. Labs were significant for mildly elevated WBC at 13 , normal troponins , creatinine of 2.7 , proBNP 7580. She was diagnosed with congestive heart failure exacerbation and admitted under the hospitalist service. CHF exacerbation Last echo in 2008 showed an EF of 50% with diastolic dysfunction moderate pulmonary hypertension and right heart failure We will get new echo Continue with Lasix IV twice daily Intake output, Daily weights and fluid restriction 1.8 L CKD stage IV Patient reports that she has refused dialysis. Creatinine close to baseline No signs of uremia, no electrolyte imbalance CAD status post CABG We will continue aspirin ,Plavix ,Coreg, statin Continue Imdur. Hypertension Continue amlodipine, Coreg, Imdur, Lasix Diabetes We will continue with Januvia and glipizide We will continue Levemir insulin at lower dose GERD Continue PPI Plan / VTE VTE Prophylaxis Ordered?: Yes EJ VALENZUELA MD Oct 03, 2020 08:37
[2020-10-03] MEDS: amLODIPine 5 MG TAB PO SCH ×4 (10:35→20:59)
--- NOTE | 2020-10-03 10:59 | ECGEPIP ---
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
[2020-10-03 11:24] LABS: CK-MB VALUE MASS 1.2 NG/ML (<3.6); CPK CREATINE PHOSPHOKINASE 65 U/L (26-192); MB/CK RELATIVE INDEX 1.85 (< OR =4); TROPONIN I < 0.02 NG/ML (< 0.10)
[2020-10-03] MEDS: CLOPIDOGREL 75 MG TAB PO SCH (12:17)
[2020-10-03] MEDS: CARVedilol 12.5 MG TAB PO SCH (12:17)
[2020-10-03] MEDS: LEVEMIR (INSULIN DETEMIR) 1 UNITS/0.01ML SC SCH (12:17)
[2020-10-03] MEDS: PANTOPRAZOLE 40MG TAB (PROTONIX) PO SCH (12:18)
[2020-10-03] MEDS: SITagliptin 50 MG TAB (JANUVIA) PO SCH (12:18)
[2020-10-03] MEDS: ASPIRIN 81MG ENTERIC TABLET PO SCH (12:18)
[2020-10-03] MEDS ORDERED: cloNIDine 0.1MG TABLET PO ONE (14:05)
[2020-10-03] MEDS ORDERED: NIFEdipine 10 MG CAP PO ONE (15:00)
[2020-10-03 17:40] VITALS: BP 188/62
[2020-10-03] MEDS ORDERED: PILL CUTTER 1 EACH XX PRN (18:30)
[2020-10-03] MEDS: FUROSEMIDE 100MG/10ML VIAL (J1940) IV SCH (18:51)
[2020-10-03] MEDS: ACETAMINOPHEN 500 MG TAB PO PRN (18:52)
[2020-10-03 20:00] VITALS: BP 172/72
[2020-10-03] MEDS: ROSUVASTATIN 10 MG TAB (CRESTOR) PO SCH (20:27)
[2020-10-03] MEDS: ISOSORBIDE MON. (IMDUR) 30 MG XR TAB PO SCH (20:27)
[2020-10-04] VITALS (11 sets, daily range): BP systolic 147–182; BP diastolic 53–78
[2020-10-04] MEDS: amLODIPine 5 MG TAB PO SCH ×2 (04:09→21:27)
[2020-10-04] MEDS: CARVedilol 12.5 MG TAB PO SCH (04:09)
[2020-10-04 05:46] LABS: BASO % 0.2 % (0.0-1.0); EOS % 0.3 % (0.0-3.0); HEMOGLOBIN 8.6 g/dl (12.0-15.5); LYMPH # 0.6 10^3/uL (1.5-5.0); LYMPH % 4.7 % (24.0-44.0); MEAN CORPUSCULAR HEMOGLOBIN 29.1 pg (27.0-33.0); MEAN CORPUSCULAR HGB CONC 31.9 g/dl (32.0-36.5); MEAN CORPUSCULAR VOLUME 91.2 fl (80.0-96.0); MONO % 7.5 % (2.0-8.0); NEUTROPHILS % 86.8 % (36.0-66.0); PLATELET COUNT, AUTOMATED 181 10^3/uL (150-450); RED BLOOD COUNT 2.96 10^6/uL (4.00-5.40); WHITE BLOOD COUNT 12.7 10^3/uL (4.0-10.0)
[2020-10-04 06:07] LABS: CALCIUM LEVEL 8.8 MG/DL (8.8-10.2); CREATININE FOR GFR 3.09 MG/DL (0.55-1.30); GLOMERULAR FILTRATION RATE 15.3 (>32); POTASSIUM SERUM 4.1 MEQ/L (3.5-5.1)
[2020-10-04] MEDS: ONDANSETRON 4 MG ORAL DISINTEGRATING TAB PO PRN (06:26)
[2020-10-04] MEDS ORDERED: SPIRONOLACTONE 12.5MG PER 1/2 TABLET PO SCH (09:00)
[2020-10-04] MEDS ORDERED: glipiZIDE XL 5 MG TABCR PO SCH (09:00)
[2020-10-04] MEDS: ASPIRIN 81MG ENTERIC TABLET PO SCH (09:36)
[2020-10-04] MEDS: FUROSEMIDE 100MG/10ML VIAL (J1940) IV SCH ×2 (09:36→17:50)
[2020-10-04] MEDS: CLOPIDOGREL 75 MG TAB PO SCH (09:37)
[2020-10-04] MEDS: SITagliptin 50 MG TAB (JANUVIA) PO SCH (09:37)
[2020-10-04] MEDS: PANTOPRAZOLE 40MG TAB (PROTONIX) PO SCH (09:37)
[2020-10-04] MEDS: ISOSORBIDE MON. (IMDUR) 30 MG XR TAB PO SCH ×2 (09:38→21:28)
[2020-10-04] MEDS: LEVEMIR (INSULIN DETEMIR) 1 UNITS/0.01ML SC SCH (09:48)
--- NOTE | 2020-10-04 10:11 | IPNPDOC ---
Subjective Date Seen The patient was seen on 10/04/20. Subjective Chief Complaint/HPI Complains of nausea from early this morning. She was noted to be hypoxic in room air at 81% at rest. Needing 3 Liters of oxygen. Objective Physical Examination General Exam: Positive: Alert, Cooperative, No Acute Distress Eye Exam: Positive: PERRLA, Conjunctiva & lids normal, EOMI, Other Eye Symptoms (Periorbital puffiness); Negative: Sclera icteric ENT Exam: Positive: Atraumatic, Mucous membr. moist/pink, Pharynx Normal Neck Exam: Positive: Supple, JVD; Negative: thyromegaly Chest Exam: Positive: Normal air movement, Diminished, Other (basal crackles. ) Heart Exam: Positive: Rate Normal, Regular Rhythm, Normal S1, Normal S2; Negative: Murmurs, Rubs Telemetry: Positive: No significant arrhythmia Abdomen Exam: Positive: Normal bowel sounds, Soft; Negative: Tenderness Extremity Exam: Positive: Edema (1+), Normal pulses; Negative: Clubbing, Cyanosis Psych Exam: Positive: Memory Intact, Oriented x 3 Assessment /Plan Assessment 85-year-old female with past medical history of Systolic and diastolic CHF with last EF of 50% with diastolic dysfunction in 2008 echo, diabetes, CKD stage IV, CAD status post CABG , hyperlipidemia, hypertension, GERD, presented to ED for chest pain and nausea which started around 10 PM last night. The chest pain was located at the left lower chest and in the epigastric region, was pressure-like about 8/10 in intensity present constantly throughout the night, associated with nausea. Chest x-ray in the ED showed bilateral pulmonary edema. Labs were significant for mildly elevated WBC at 13 , normal troponins , creatinine of 2.7 , proBNP 7580. She was diagnosed with congestive heart failure exacerbation and admitted under the hospitalist service. CHF exacerbation Last echo in 2008 showed an EF of 50% with diastolic dysfunction moderate pulmonary hypertension and right heart failure continue IV lasix. continue spironolactone. Intake output, Daily weights and fluid restriction 1.8 L Positive blood cultures 1/2 bottles. likely contaminant. Procal 0.23, no other signs of infection. CKD stage IV to V Patient reports that she has refused dialysis. Creatinine close to baseline No signs of uremia, no electrolyte imbalance Anemia of chronic disease. CAD status post CABG We will continue aspirin ,Plavix ,Coreg, statin Continue Imdur. Hypertension Continue amlodipine, Coreg, Imdur, Lasix Diabetes We will continue with Januvia We will continue Levemir insulin at lower dose Patient does not need humalog. Her A1c is only 6.2. She did mention after starting humalog recently her sugars had gone down to 40s once or twice. GERD Continue PPI Abnormal EKG LBBB with LAD unchanged from 2019 Plan/VTE VTE Prophylaxis Ordered?: Yes VS, I&O, 24H, Fishbone Vital Signs/I&O Vital Signs Date Time Temp Pulse Resp B/P (MAP) Pulse Ox O2 Delivery O2 Flow Rate FiO2 10/04/20 06:28 74 147/63 (91) 10/04/20 04:00 99.3 16 92 Nasal Cannula 2.0 I&O- Last 24 Hours up to 6 AM 10/04/20 06:00 Intake Total 150 ml Output Total 950 ml Balance -800 ml Laboratory Data 24H LABS Laboratory Tests 2 10/03/20 17:39: Bedside Glucose (Misc Panel) 155H 10/04/20 05:08: Immature Granulocyte % (Auto) 0.5, Neutrophils (%) (Auto) 86.8H, Lymphocytes (%) (Auto) 4.7L, Monocytes (%) (Auto) 7.5, Eosinophils (%) (Auto) 0.3, Basophils (%) (Auto) 0.2, Neutrophils # (Auto) 11.0H, Lymphocytes # (Auto) 0.6L, Monocytes # (Auto) 1.0H, Eosinophils # (Auto) 0.0, Basophils # (Auto) 0.0, Nucleated Red Blood Cells % (auto) 0.0, Anion Gap 9, Glomerular Filtration Rate 15.3L, Calcium Level 8.8 CBC/BMP Laboratory Tests 10/04/20 05:08 Microbiology Microbiology 10/03/20 Blood Culture - Preliminary, Resulted No growth after 24 hours . All specim... 10/03/20 Blood Culture - Preliminary, Resulted 10/03/20 Respiratory Virus Panel (PCR) (TEJAS) - Final, Complete EJ VALENZUELA MD Oct 04, 2020 07:18
--- NOTE | 2020-10-04 12:54 | ECHO ---
ECHOCARDIOGRAM DATE OF PROCEDURE: 10/04/2020 Age: 85 Gender: Female Height: 180 cm. Weight: 89 kg. REFERRING PHYSICIAN: Ramona Ross M.D. INDICATION: Congestive heart failure. MEASUREMENTS: IVS 1.3 cm LV 5.4 cm LVPW 1.2 cm LA 4.2 cm Aorta 3.0 cm Left atrium volume index 28 Mitral E wave velocity 166 A wave 119 E prime septal 3.5 A prime lateral 4.4 FINDINGS: This study is of acceptable technical quality. Patient is in sinus rhythm with wide QRS complex. I suspect left bundle branch block. Left ventricle is normal size. Mild left ventricular hypertrophy (LVH) is present. Overall normal left ventricular systolic function with atypical septal motion. Estimated left ventricular ejection fraction (LVEF) approximately 65-70%. Right ventricle was relatively poorly seen, but does not appear obviously enlarged. Both atria appear grossly normal size, even though the measurements listed I do not believe are completely accurate and the true size is probably larger. No pericardial effusion is noted. Inferior vena cava is dilated at 2.5 cm, but does have collapse with inspiration. Aortic root and aortic arch appear grossly normal. Abdominal aorta was not well seen. Doppler interrogation reveals trivial aortic stenosis with mean gradient 6 mmHg and no insufficiency of the valve. There is mild mitral insufficiency. There is mild, possibly mild to moderate tricuspid insufficiency with calculated pulmonary artery pressure at minimum at 50s, corresponding to moderate or even possibly moderately severe pulmonary hypertension. The pulmonic valve was poorly visualized, but no obvious insufficiency is noted. Mitral inflow pattern and tissue Doppler imaging of mitral annulus reveal grade 2 diastolic dysfunction indicative of high left ventricular end-diastolic pressure (LVEDP). CONCLUSIONS: 1. Study is of acceptable technical quality, underlying sinus rhythm with wide QRS complex, likely left bundle branch block (LBBB). 2. Normal left ventricular (LV) size with mild left ventricular hypertrophy (LVH), septal wall motion abnormality and overall estimated left ventricular ejection fraction (LVEF) 65-70%. Grade 2 diastolic dysfunction. 3. Aortic sclerosis resulting in trivial stenosis and no insufficiency. 4. Mild mitral insufficiency. 5. Mild to moderate tricuspid insufficiency. 6. Likely high central venous pressure and at least moderate pulmonary hypertension. MTDD
[2020-10-04] MEDS: ACETAMINOPHEN 500 MG TAB PO PRN ×2 (13:10→23:32)
[2020-10-04 15:57] LABS: PERCENT SATURATION 8.2 % (13.2-45.0)
[2020-10-04] MEDS: IRON SUCROSE 200 MG in NS 100 ML IV SCH (21:27)
[2020-10-04] MEDS: ROSUVASTATIN 10 MG TAB (CRESTOR) PO SCH (21:27)
--- NOTE | 2020-10-04 23:23 | CR ---
NEPHROLOGY CONSULTATION DATE: 10/04/2020 REQUESTING PHYSICIAN: Dr. Ramona Ross CONSULTING PHYSICIAN: Dr. Kailash Franco REASON FOR CONSULTATION: Acute renal failure superimposed on chronic kidney disease. CHIEF COMPLAINT: The patient presented to the hospital yesterday with chest pain and progressive shortness of breath. HISTORY OF PRESENT ILLNESS: The patient is an 85-year-old female with a past medical history of chronic kidney disease stage 4, history of coronary artery disease, chronic combined systolic and diastolic congestive heart failure, multiple other comorbidities as mentioned below. She presented to the hospital yesterday with chest pain, nausea that started around 10:00 p.m. the night before she presented to the hospital. The pain was pressure-like, 8/10 in intensity, and it persisted through the night. It was associated with nausea. In the Emergency Room the patient was found to be fluid overloaded. She had bilateral pulmonary edema on the chest x-ray. Troponins were normal. She was admitted under the Hospitalist service with acute congestive heart failure exacerbation and was started on IV Lasix and nitro paste. Nephrology service was called for further help in the management of this patient with acute renal failure. Her creatinine on arrival was 2.7. I saw and evaluated the patient today morning at the bedside. She reports that she is feeling slightly better today as compared with yesterday. She otherwise denies any fevers or chills. The patient knows that her renal function is worse, but she absolutely does not want any renal replacement therapy. PAST MEDICAL HISTORY: The patient's past medical history is significant for: 1. Chronic kidney disease stage 4. 2. History of chronic combined systolic and diastolic congestive heart failure, left ventricular ejection fraction 50% in previous echocardiogram. 3. Pulmonary hypertension. 4. Diabetes mellitus type 2. 5. Coronary artery disease, status post CABG. 6. Coronary artery disease, status post right carotid stent. 7. Hyperlipidemia. 8. Hypertension. 9. Vitamin B-12 deficiency. 10. History of skin cancers. 11. Retinal hemorrhage. 12. Chronic anemia. 13. Right sided sciatica. PAST SURGICAL HISTORY: The patient's past surgical history is significant for: 1. Status post tonsillectomy in the past. 2. History of EGD and colonoscopy. 3. Right carotid stenting. 4. Coronary artery bypass grafting. 5. Cataract surgery bilaterally. 6. Basal cell carcinoma from excision from the nose and face. 7. Right arm fistula was placed that has failed now. ALLERGIES: She is allergic to: 1. Penicillin. 2. Erythromycin. 3. Shrimp. FAMILY HISTORY: Her father had diabetes and heart disease and mother had cancer. SOCIAL HISTORY: The patient denies any smoking, illicit drug abuse or alcohol abuse. REVIEW OF SYSTEMS: Constitutional: She denies any fevers or chills. Eyes: She denies any blurry vision, double vision. ENT: She denies any dysphagia or odynophagia. Cardiovascular: She reports chest pain and shortness of breath. Respiratory: She reports moderate shortness of breath. She denies any cough or phlegm. Gastrointestinal: She denies any nausea or vomiting. Genitourinary: She denies any dysuria or hematuria. Musculoskeletal: She denies any muscle aches and pains. Skin: She denies any rashes or ulcers. Hematological/Oncological: She denies any easy bleeding or bruising. Psych: She denies any depression or anxiety. RESOURCE RECOVERY ENGINEER: She denies any strokes or seizures. All other review of systems is negative. PHYSICAL EXAMINATION: GENERAL APPEARANCE: The patient is awake, alert, oriented x3, laying in bed. VITAL SIGNS: Temperature is 98.9 degrees Fahrenheit, blood pressure 182/60, pulse is 68, respiratory rate of 18, saturating 93% on nasal cannula at 3 liters. HEAD AND NECK: Extraocular muscles intact. Pupils are equally round and reactive to light. Mucous membranes are moist. Neck is supple. She has moderately elevated jugular venous distention. CARDIOVASCULAR: S1, S2, regular rate. EXTREMITIES: Trace edema of the bilateral lower extremities. RESPIRATORY: Decreased breath sounds at the bases. Mild inspiratory crackles bilaterally at the bases up to the mid lung zones. ABDOMEN: Soft, positive bowel sounds, nontender, no organomegaly. MUSCULOSKELETAL: No clubbing, no cyanosis. Pulses are 2+. RESOURCE RECOVERY ENGINEER: No focal deficits. Power is 5/5 in all extremities. LAB REVIEW: CBC showed a WBC count of 12.7, hemoglobin 8.6, platelet count 181. BMP showed sodium 141, potassium 4.1, chloride 111, bicarbonate 21, BUN 65, creatinine is 3.09. It was 2.7 yesterday. Iron level is 14. Transferrin saturation is 8.2, ferratin is 995. CURRENT INPATIENT MEDICATIONS: The patient's medications were all reviewed by myself. She is getting Amlodipine 5 mg p.o. twice daily, Tylenol p.r.n., Aspirin 81 mg p.o. daily, Coreg 12.5 mg p.o. daily, Plavix 75 mg p.o. daily, Lasix 60 m g IV twice daily, Insulin Levemir 10 units subcutaneously daily, Isosorbide 30 mg p.o. twice daily, Protonix 40 mg p.o. daily, Rosuvastatin 40 mg q. h.s., Januvia 25 mg p.o. daily. She was getting Spironolactone 12.5 mg p.o. daily which was stopped by myself. ASSESSMENT AND PLAN: 1. Acute renal failure superimposed on chronic kidney disease - The patient is in decompensated congestive heart failure. She is getting diuresed at this time. I will continue the diuretics. I discussed the patient's current renal function. She has a GFR of 15 which might be an over estimation of her GFR given her frailty and age. I discussed the possibility of dialysis with the patient but she absolutely does not want any renal replacement therapy and she wants medical optimization only. 2. Acute decompensated congestive heart failure - The patient's latest echocardiogram was done today which shows left ventricular ejection fraction of 65-70% with grade 2 diastolic dysfunction, high central venous pressure and moderate pulmonary hypertension. The patient is being diuresed at this time. Okay to continue the current diuretic dose. Spironolactone is being stopped because of advanced renal failure. 3. Anemia in renal failure and iron deficiency the patient's iron levels are low. I am going to start the patient on IV Venofer. If hemoglobin stays low, then she will be started on Aranesp injections. 4. Hypertension okay to continue current dose of Amlodipine and Coreg along with Isosorbide. If blood pressure stays high despite the use of Lasix, then Hydralazine will be added. 5. Diabetes mellitus type 2 - continue insulin Levemir. Glucose levels are within the acceptable range at this time. Okay to continue Januvia. Avoid use of Metformin. Thank you for involving me in the care of this patient. I shall be happy to follow the patient along with you tomorrow morning.
[2020-10-05] VITALS (12 sets, daily range): BP systolic 129–210; BP diastolic 58–80
[2020-10-05 05:29] LABS: BASO % 0.2 % (0.0-1.0); EOS # 0.1 10^3/uL (0.0-0.5); EOS % 0.5 % (0.0-3.0); HEMATOCRIT 23.8 % (36.0-47.0); HEMOGLOBIN 7.7 g/dl (12.0-15.5); LYMPH # 0.7 10^3/uL (1.5-5.0); LYMPH % 6.6 % (24.0-44.0); MEAN CORPUSCULAR HEMOGLOBIN 29.5 pg (27.0-33.0); MEAN CORPUSCULAR HGB CONC 32.4 g/dl (32.0-36.5); MEAN CORPUSCULAR VOLUME 91.2 fl (80.0-96.0); MONO # 0.8 10^3/uL (0.0-0.8); MONO % 8.1 % (2.0-8.0); NEUTROPHILS # 8.4 10^3/uL (1.5-8.5); NEUTROPHILS % 84.2 % (36.0-66.0); PLATELET COUNT, AUTOMATED 171 10^3/uL (150-450); RED BLOOD COUNT 2.61 10^6/uL (4.00-5.40)
[2020-10-05 05:49] LABS: CALCIUM LEVEL 8.3 MG/DL (8.8-10.2); CREATININE FOR GFR 3.36 MG/DL (0.55-1.30); GLOMERULAR FILTRATION RATE 13.9 (>32); POTASSIUM SERUM 4.2 MEQ/L (3.5-5.1)
[2020-10-05] MEDS: FUROSEMIDE 100MG/10ML VIAL (J1940) IV SCH (08:19)
[2020-10-05] MEDS: ACETAMINOPHEN 500 MG TAB PO PRN ×2 (08:23→20:12)
[2020-10-05] MEDS: ISOSORBIDE MON. (IMDUR) 30 MG XR TAB PO SCH (08:23)
[2020-10-05] MEDS: CARVedilol 12.5 MG TAB PO SCH (08:24)
[2020-10-05] MEDS: PANTOPRAZOLE 40MG TAB (PROTONIX) PO SCH (08:24)
[2020-10-05] MEDS: ASPIRIN 81MG ENTERIC TABLET PO SCH (08:24)
[2020-10-05] MEDS: SITagliptin 50 MG TAB (JANUVIA) PO SCH (08:24)
[2020-10-05] MEDS: amLODIPine 5 MG TAB PO SCH ×2 (08:24→21:11)
[2020-10-05] MEDS: CLOPIDOGREL 75 MG TAB PO SCH (08:24)
[2020-10-05] MEDS ORDERED: LEVEMIR (INSULIN DETEMIR) 1 UNITS/0.01ML SC SCH (09:00)
[2020-10-05] MEDS: **hydrALAZINE HCL** 25 MG TAB PO SCH ×3 (09:24→21:12)
[2020-10-05] MEDS ORDERED: SALIVA SUBSTITUTE(MOUTHKOTE) BTL MT PRN (09:55)
--- NOTE | 2020-10-05 09:58 | IPNPDOC ---
Subjective Date Seen The patient was seen on 10/05/20. Subjective Chief Complaint/HPI Continues to be very SOB with oxygen droping to 70s on minimal exertion. Complains that food is not tasting good. She also has been having nausea. Objective Physical Examination General Exam: Positive: Alert, Cooperative, No Acute Distress Eye Exam: Positive: PERRLA, Conjunctiva & lids normal, EOMI, Other Eye Symptoms (Periorbital puffiness); Negative: Sclera icteric ENT Exam: Positive: Atraumatic, Mucous membr. moist/pink, Pharynx Normal Neck Exam: Positive: Supple, JVD; Negative: thyromegaly Chest Exam: Positive: Normal air movement, Diminished, Other (basal crackles. ) Heart Exam: Positive: Rate Normal, Regular Rhythm, Normal S1, Normal S2; Negative: Murmurs, Rubs Telemetry: Positive: No significant arrhythmia Abdomen Exam: Positive: Normal bowel sounds, Soft; Negative: Tenderness Extremity Exam: Positive: Edema (1+), Normal pulses; Negative: Clubbing, Cyanosis Psych Exam: Positive: Memory Intact, Oriented x 3 Assessment /Plan Assessment 85-year-old female with past medical history of Systolic and diastolic CHF with last EF of 50% with diastolic dysfunction in 2008 echo, diabetes, CKD stage IV, CAD status post CABG , hyperlipidemia, hypertension, GERD, presented to ED for chest pain and nausea which started around 10 PM last night. The chest pain was located at the left lower chest and in the epigastric region, was pressure-like about 8/10 in intensity present constantly throughout the night, associated with nausea. Chest x-ray in the ED showed bilateral pulmonary edema. Labs were significant for mildly elevated WBC at 13 , normal troponins , creatinine of 2.7 , proBNP 7580. She was diagnosed with congestive heart failure exacerbation and admitted under the hospitalist service. Persistent hypoxia needing 3 L of oxygen. will get CT chest and a VQ scan. will transfuse 1 unit of blood. CHF exacerbation Last echo in 2008 showed an EF of 50% with diastolic dysfunction moderate pulmonary hypertension and right heart failure Now appers euvolemia Intake output, Daily weights and fluid restriction 1.8 L Anemia of chronic disease and iron def received venofer. will give 1 unti fo PRBC. Positive blood cultures 1/2 bottles. likely contaminant. Procal 0.23, no other signs of infection. CKD stage V Patient reports that she has refused dialysis. No signs of uremia, no electrolyte imbalance does have nausea, poor taste, poor appetite. CAD status post CABG We will continue aspirin ,Plavix ,Coreg, statin Continue Imdur. Hypertension Continue amlodipine, Coreg, Imdur, hydralazine. Diabetes We will continue with Januvia , stopped glipizide. We will continue Levemir insulin at lower dose Patient does not need humalog. Her A1c is only 6.2. She did mention after starting humalog recently her sugars had gone down to 40s once or twice. GERD Continue PPI Abnormal EKG LBBB with LAD unchanged from 2019 Plan/VTE VTE Prophylaxis Ordered?: Yes VS, I&O, 24H, Fishbone Vital Signs/I&O Vital Signs Date Time Temp Pulse Resp B/P (MAP) Pulse Ox O2 Delivery O2 Flow Rate FiO2 10/05/20 09:24 175/58 10/05/20 08:24 73 10/05/20 08:00 98.6 19 90 Nasal Cannula 3.0 I&O- Last 24 Hours up to 6 AM 10/05/20 06:00 Intake Total 400 ml Output Total 850 ml Balance -450 ml Laboratory Data 24H LABS Laboratory Tests 2 10/04/20 11:49: Bedside Glucose (Misc Panel) 212H 10/04/20 15:07: Iron Level 14L, Total Iron Binding Capacity 170L, Transferrin % Saturation 8.2L, Ferritin 995H 10/04/20 17:53: Bedside Glucose (Misc Panel) 136H 10/05/20 04:40: Immature Granulocyte % (Auto) 0.4, Neutrophils (%) (Auto) 84.2H, Lymphocytes (%) (Auto) 6.6L, Monocytes (%) (Auto) 8.1H, Eosinophils (%) (Auto) 0.5, Basophils (%) (Auto) 0.2, Neutrophils # (Auto) 8.4, Lymphocytes # (Auto) 0.7L, Monocytes # (Auto) 0.8, Eosinophils # (Auto) 0.1, Basophils # (Auto) 0.0, Nucleated Red Blood Cells % (auto) 0.0, Anion Gap 8, Glomerular Filtration Rate 13.9L, Calcium Level 8.3L CBC/BMP Laboratory Tests 10/05/20 04:40 Microbiology Microbiology 10/03/20 Blood Culture - Preliminary, Resulted No Growth after 48 hours. All Specime... 10/03/20 Blood Culture - Preliminary, Resulted 10/03/20 Respiratory Virus Panel (PCR) ([facility]) - Final, Complete EJ VALENZUELA MD Oct 05, 2020 09:58
[2020-10-05] MEDS ORDERED: FUROSEMIDE 100MG/10ML VIAL (J1940) IV ONE ×2 (10:15→23:30)
--- NOTE | 2020-10-05 11:15 | REP ---
INDICATION: SOB, Hypoxia. COMPARISON: AP portable 10/03/2020, CTA 02/18/2009 TECHNIQUE: Noncontrast scanning through the chest with both coronal and sagittal reconstructions provided FINDINGS: Lung perez are well inflated. There are multifocal interstitial and ground-glass infiltrates along with patchy consolidation in the left lower lobe and to a lesser extent the right base. Interstitial infiltrates seen in the left upper lobe in the right upper lobe anterior to the major fissure. I do not see parenchymal masses. Small nodules could be obscured in the infiltrates in the left lower lobe. There are small bilateral pleural effusions right greater than left. Compressive atelectasis or consolidation deep sulcus of the right lower lobe noted pleural based a density triangular shaped in the posterior segment of the left upper lobe on 6 image 27-29. No other significant lung findings. The heart is enlarged with left atrial and left ventricular enlargement. Mitral annular calcifications are noted. Some coronary calcifications as well as aortic root calcifications evident. Aortic arch and descending aorta scattered calcifications seen no pericardial effusion. There is no pathologic sized lymphadenopathy largest node is precarinal and fatty replaced, the largest 9 mm no axillary supraclavicular mass. Bone windows show show grade 1 superior endplate compression deformity of T12 without other compression fractures. I see no paraspinal hematoma to suggest this is acute. No focal bone lesions in the spine. The sternum and manubrium show healing with the sternotomy wires in place. Medial clavicles, visualized portions of scapulae, humeral heads and ribs were unremarkable. The upper abdomen shows no definite hiatal hernia. No gross hepatosplenomegaly. Visualized portion of gallbladder without calcified stone. Calcifications aorta and branches throughout the upper abdomen. Adrenal glands without mass. The kidneys show interval marked atrophy on the left with a hyperdense cyst which is homogeneous and 2.5 cm. There are other bilateral low-density cysts. No hydronephrosis. No significant atrophy on the right side. Pancreas unremarkable. Visualized bowel loops intact. IMPRESSION: 1. Bilateral patchy ground-glass interstitial opacities mid and lower lung zones in multiple lobes and with peripheral right and left lower lobe dense consolidations in a patchy distribution. Findings suggest some pneumonitis. Small pleural effusions are present. The heart is mildly enlarged but no pericardial thickening or effusion. There is a triangular shaped pleural based opacity in the left upper lobe medially of uncertain significance. Most likely representing some atelectatic change. 2. Prior sternotomy and coronary artery calcifications with calcifications mitral annulus and aortic root. 3. No other significant or acute finding <Electronically signed by Willem Silva > 10/05/20 [id number]
[2020-10-05] MEDS: LEVEMIR (INSULIN DETEMIR) 1 UNITS/0.01ML SC SCH (12:09)
--- NOTE | 2020-10-05 13:09 | REP ---
INDICATION: SOB,Hypoxia. COMPARISON: CT chest 10/05/2020. Radiographs 10/03/2020. TECHNIQUE/RADIOTRACER AND DOSE: Following the intravenous administration of 5.5 mCi technetium 99 M tagged MAA and the inhalation of 1.0 mCi technetium 99 M DTPA aerosol, multiple images of the lungs are obtained in various projections. FINDINGS: There is central deposition of radiotracer in the airways. Scattered small subsegmental perfusion defects are seen bilaterally with larger ventilation defects. There are no areas of V/Q mismatch. IMPRESSION: Low probability of pulmonary embolism. <Electronically signed by John Lombardo > 10/05/20 [id number]
--- NOTE | 2020-10-05 14:37 | IPN ---
NEPHROLOGY PROGRESS NOTE DATE: 10/05/2020 SUBJECTIVE: The patient was seen and examined at the bedside today morning. She was actually sitting up in the sofa getting ready to eat her food when I saw her. She was getting IV diuretics. Her edema is improved, however she still has hypertension and her creatinine is worse today as compared with yesterday. OBJECTIVE: VITAL SIGNS: Temperature is 98.6 degrees Fahrenheit, blood pressure 175/58, pulse is 83, respiratory rate of 19, saturating 90% on nasal cannula at 3 liters. INTAKE AND OUTPUT: Urine output recorded as 850 mL yesterday, 600 mL so far today since overnight. Weight in the bed scale is 69.5 kg. PHYSICAL EXAMINATION: GENERAL APPEARANCE: The patient is awake, alert, oriented x3, sitting up in the sofa, in no apparent distress. HEAD AND NECK: Extraocular muscles intact. Pupils are equally round and reactive to light. Mucous membranes are moist. Neck is supple. There is no jugular venous distention. CARDIOVASCULAR: S1, S2, regular rate. EXTREMITIES: No significant edema of the bilateral lower extremities. RESPIRATORY: Chest is clear to auscultation bilaterally. Bilaterally currently no rales or rhonchi. ABDOMEN: Soft, positive bowel sounds, nontender, no organomegaly. MUSCULOSKELETAL: No clubbing, no cyanosis. Pulses are 2+. ACUTE CARE NURSE PRACTITIONER: No focal deficits. Power is 5/5 in all extremities. LAB REVIEW: CBC showed a WBC count of 10, hemoglobin 7.7, platelet count 171. BMP showed sodium of 142, potassium 4.2, chloride 110, bicarbonate 24, BUN 72, creatinine is 3.3. It was 3 yesterday. IMAGING: A CT of the chest was done today which showed pneumonitis and small pleural effusions and prior sternotomy and coronary artery calcifications. CURRENT INPATIENT MEDICATIONS: The patient's medications were all reviewed by myself. She has been started on Venofer since yesterday. I have stopped her IV Lasix. She would only get one dose of Lasix after her PRBC transfusion today. She has been started on Hydralazine 25 mg p.o. q. 8 hourly and Isosorbide 30 mg p.o. q. 8 hourly. No other significant change in the medications today. ASSESSMENT AND PLAN: 1. Acute renal failure superimposed on chronic kidney disease - The patient was diuresed with congestive heart failure. Her creatinine is getting worse. I have stopped the diuretics now. The patient refused to have dialysis. 2. Acute decompensated congestive heart failure - The patient has diastolic dysfunction. As mentioned above, she was diuresed for 3 days. Creatinine is bumping up so I have stopped the diuretics now. 3. Anemia in renal failure and iron deficiency the patient is getting IV Venofer. She is also going to get one unit of PRBC transfusion. 4. Hypertension it is currently uncontrolled despite Coreg and Amlodipine along with Isosorbide. I have started the patient on Hydralazine. Isosorbide has been changed to Isordil 30 mg p.o. three times daily. 5. Diabetes mellitus type 2 - continue insulin Levemir and Januvia.
[2020-10-05] MEDS: ISOSORBIDE DIN. (ISORDIL) 30 MG TAB PO SCH ×2 (16:21→21:10)
[2020-10-05] MEDS: ROSUVASTATIN 10 MG TAB (CRESTOR) PO SCH (21:11)
[2020-10-05] MEDS: IRON SUCROSE 200 MG in NS 100 ML IV SCH (21:12)
[2020-10-06] VITALS (43 sets, daily range): BP systolic 127–207; BP diastolic 57–107
[2020-10-06] MEDS: **hydrALAZINE HCL** 25 MG TAB PO SCH ×3 (04:24→22:08)
[2020-10-06 05:33] LABS: BASO % 0.3 % (0.0-1.0); EOS % 0.4 % (0.0-3.0); HEMATOCRIT 27.8 % (36.0-47.0); HEMOGLOBIN 9.2 g/dl (12.0-15.5); LYMPH # 0.4 10^3/uL (1.5-5.0); LYMPH % 3.8 % (24.0-44.0); MEAN CORPUSCULAR HEMOGLOBIN 28.3 pg (27.0-33.0); MEAN CORPUSCULAR HGB CONC 33.1 g/dl (32.0-36.5); MEAN CORPUSCULAR VOLUME 85.5 fl (80.0-96.0); MONO # 0.6 10^3/uL (0.0-0.8); MONO % 5.8 % (2.0-8.0); NEUTROPHILS # 9.2 10^3/uL (1.5-8.5); NEUTROPHILS % 88.9 % (36.0-66.0); PLATELET COUNT, AUTOMATED 183 10^3/uL (150-450); RED BLOOD COUNT 3.25 10^6/uL (4.00-5.40); WHITE BLOOD COUNT 10.4 10^3/uL (4.0-10.0)
[2020-10-06 05:58] LABS: CALCIUM LEVEL 7.7 MG/DL (8.8-10.2); CREATININE FOR GFR 3.94 MG/DL (0.55-1.30); GLOMERULAR FILTRATION RATE 11.5 (>32); POTASSIUM SERUM 4.2 MEQ/L (3.5-5.1)
[2020-10-06] MEDS: ISOSORBIDE DIN. (ISORDIL) 30 MG TAB PO SCH ×3 (06:06→22:09)
[2020-10-06] MEDS ORDERED: hydrALAZINE 20MG/ML 1ML VIAL (J0360 PER 20MG) IV ONE ×2 (06:25→06:40)
[2020-10-06] MEDS ORDERED: FUROSEMIDE 100MG/10ML VIAL (J1940) IV ONE (07:30)
[2020-10-06] MEDS ORDERED: CHLOROTHIAZIDE 500 MG VIAL (J1205 PER 1) IV ONE (09:00)
[2020-10-06] MEDS: PANTOPRAZOLE 40MG TAB (PROTONIX) PO SCH (09:17)
[2020-10-06] MEDS: ASPIRIN 81MG ENTERIC TABLET PO SCH (09:18)
[2020-10-06] MEDS: CLOPIDOGREL 75 MG TAB PO SCH (09:18)
[2020-10-06] MEDS: CARVedilol 12.5 MG TAB PO SCH (09:18)
[2020-10-06] MEDS: LEVEMIR (INSULIN DETEMIR) 1 UNITS/0.01ML SC SCH (09:19)
[2020-10-06] MEDS: SITagliptin 50 MG TAB (JANUVIA) PO SCH (09:24)
--- NOTE | 2020-10-06 10:21 | IPN ---
NEPHROLOGY PROGRESS NOTE DATE: 10/06/2020 SUBJECTIVE: Patient was seen and examined at the bedside today morning in the progressive care unit (PCU) and the last 24 hours events were noted. Patient was given 1 unit of packed red blood cells (PRBC) transfusion. After that, she was given a dose of Lasix. However, her blood pressures are very uncontrolled, despite multiple antihypertensives at this time. Her systolic blood pressures were more than 200. Patient is complaining of chest pressure and shortness of breath despite getting a dose of intravenous (IV) hydralazine today morning. OBJECTIVE: VITAL SIGNS: Temperature 99.4 degrees Fahrenheit, blood pressure 207/77, pulse 64, respiratory rate 20, saturating 91% on nasal cannula at 3 liters. INTAKE AND OUTPUT: Urine output recorded as 875 mL yesterday, 200 mL so far today since overnight. Weight in the bed scale is 70 kg. PHYSICAL EXAMINATION: GENERAL: Patient is awake, alert, oriented times three, sitting up in the bed, moderate respiratory distress. HEAD AND NECK EXAM: Extraocular muscles intact. Pupils equally round and reactive to light. Mucous membranes are moist. She has periorbital puffiness. Neck is supple. Mildly elevated jugular venous distention (JVD) is noted. CARDIOVASCULAR: S1, S2. Regular rate. 1+ edema of the bilateral lower extremities was noted. RESPIRATORY: Decreased breath sounds at the bases with inspiratory crackles bilaterally at the bases. ABDOMEN: Soft. Positive bowel sounds. Nontender. No organomegaly MUSCULOSKELETAL: No clubbing or cyanosis. Pulses are 2+. CENTRAL NERVOUS SYSTEM (PARACHUTE ACCESSORIES ATTACHER): No focal deficit. Power is 5/5 in all extremities. LABORATORY STUDIES: CBC showed WBC 10.4, hemoglobin 9.2, platelets 183. BMP showed sodium 139, potassium 4.2, chloride 107, bicarbonate 23, BUN 78, creatinine 3.9, it was 3.3 yesterday. MICROBIOLOGY: Blood culture was done, which showed Staphylococcus simulans on October 03, 2020. CURRENT INPATIENT MEDICATIONS: Patient's medications were all reviewed by myself. She was given a dose of IV hydralazine 20 mg today morning. I have started the patient on nicardipine drip to be titrated in the intensive care unit (ICU) for systolic blood pressure less than 160. Amlodipine has been stopped now. She was also given a dose of Lasix 80 mg IV, along with Diuril 500 mg IV. ASSESSMENT AND PLAN: 1. Hypertensive urgency. Patient's blood pressures are in the 200s. She is short of breath. She is fluid overloaded. She is being transferred to the ICU. I have talked to the ICU staff. There is a bed available. She is to be started on Cardene drip over there. 2. Acute decompensated congestive heart failure with diastolic dysfunction. Patient has renal failure. We are trying to diurese her with diuretics. Another dose of Lasix with Diuril will be given for sequential nephron forrest. 3. Acute renal failure superimposed on chronic kidney disease. Patient is adamantly refusing dialysis. We will try to optimize her with medications only. If medications are not able to help her with her fluid status and blood pressure, then we would have to offer palliative care to her. 4. Anemia in renal failure. Patient was getting IV Venofer. I have stopped the IV Venofer now. She has received two dosages and she has received one unit of blood yesterday. 5. Diabetes mellitus type 2. Okay to continue Levemir and Januvia. Avoid use of metformin. TOTAL CRITICAL CARE TIME SPENT IN THE MANAGEMENT OF THIS PATIENT IN THE PCU: 45 minutes. Patient was transferred to ICU. Plan of care was discussed with the nursing staff.
[2020-10-06] MEDS: niCARdipine IV 40 MG in IV 1 EA IV SCH ×3 (10:31→23:30)
[2020-10-06] MEDS: ROSUVASTATIN 10 MG TAB (CRESTOR) PO SCH (22:09)
[2020-10-06] MEDS: ACETAMINOPHEN 500 MG TAB PO PRN (22:14)
[2020-10-07] VITALS (25 sets, daily range): BP systolic 142–185; BP diastolic 60–87
[2020-10-07 04:34] LABS: BASO % 0.1 % (0.0-1.0); EOS % 0.4 % (0.0-3.0); HEMATOCRIT 26.1 % (36.0-47.0); HEMOGLOBIN 8.8 g/dl (12.0-15.5); LYMPH # 0.7 10^3/uL (1.5-5.0); LYMPH % 8.2 % (24.0-44.0); MEAN CORPUSCULAR HEMOGLOBIN 28.9 pg (27.0-33.0); MEAN CORPUSCULAR HGB CONC 33.7 g/dl (32.0-36.5); MEAN CORPUSCULAR VOLUME 85.6 fl (80.0-96.0); MONO # 0.5 10^3/uL (0.0-0.8); MONO % 6.5 % (2.0-8.0); NEUTROPHILS # 6.7 10^3/uL (1.5-8.5); NEUTROPHILS % 83.9 % (36.0-66.0); PLATELET COUNT, AUTOMATED 203 10^3/uL (150-450); RED BLOOD COUNT 3.05 10^6/uL (4.00-5.40)
[2020-10-07 04:56] LABS: CALCIUM LEVEL 7.9 MG/DL (8.8-10.2); CREATININE FOR GFR 4.8 MG/DL (0.55-1.30); GLOMERULAR FILTRATION RATE 9.2 (>32)
[2020-10-07] MEDS: ISOSORBIDE DIN. (ISORDIL) 30 MG TAB PO SCH ×3 (06:05→21:20)
[2020-10-07] MEDS: **hydrALAZINE HCL** 25 MG TAB PO SCH ×3 (06:06→21:20)
[2020-10-07] MEDS: niCARdipine IV 40 MG in IV 1 EA IV SCH ×2 (07:30→15:30)
[2020-10-07] MEDS: CLOPIDOGREL 75 MG TAB PO SCH (08:45)
[2020-10-07] MEDS: TORSEMIDE 20 MG TAB PO SCH (08:45)
[2020-10-07] MEDS: PANTOPRAZOLE 40MG TAB (PROTONIX) PO SCH (08:46)
[2020-10-07] MEDS: SITagliptin 50 MG TAB (JANUVIA) PO SCH (08:46)
[2020-10-07] MEDS: ASPIRIN 81MG ENTERIC TABLET PO SCH (08:46)
[2020-10-07] MEDS: ONDANSETRON 4 MG ORAL DISINTEGRATING TAB PO PRN (08:46)
[2020-10-07] MEDS: CARVedilol 12.5 MG TAB PO SCH (08:47)
[2020-10-07] MEDS: LEVEMIR (INSULIN DETEMIR) 1 UNITS/0.01ML SC SCH ×2 (09:00→10:39)
[2020-10-07] MEDS ORDERED: amLODIPine 5 MG TAB PO SCH (09:00)
--- NOTE | 2020-10-07 09:55 | IPNPDOC ---
Text Note Date of Service The patient was seen on 10/06/20. NOTE Subjective -Was hypertensive overnight requiring extra dose of hydralazine -Was transferred by nephrology to ICU for nicardipine gtt after nausea and emesis in hypertensive crisis. Objective Physical Examination General: Alert, Cooperative, No Acute Distress Eyes: PERRLA, Conjunctiva & lids normal, EOMI, anicteric ENT: Atraumatic, Mucous membr. moist/pink, Pharynx Normal Neck: continues to have JVD Chest: Normal air movement, bibasilar crackles. Heart: Rate Normal, Regular Rhythm, Normal S1, Normal S2 Abdomen: Normal bowel sounds, soft, NTND Extremities: 1+ edema, WWP Psych Exam: AO x 3 Labs: Reviewed Assessment: 85-year-old W with past medical history of Systolic and diastolic CHF with last EF of 50% with diastolic dysfunction in 2008 echo, diabetes, CKD stage IV, CAD status post CABG , hyperlipidemia, hypertension, GERD, presented to ED for chest pain and nausea and admitted for acute on chronic congestive heart failure exacerbation and hypertensive crisis. Acute hypoxemic respiratory failure -VQ scan showed low probability for a PE -s/p 1 unit of blood -with ongoing diuresis per nephrology -Unlikely bacterial PNA, low procal Acute on chronic mixed CHF exacerbation -Last echo in 2008 showed an EF of 50% with diastolic dysfunction moderate pulmonary hypertension and right heart failure -With ongoing diuresis per nephrology -Daily weights and fluid restriction 1.8 L Anemia of chronic disease and iron def -receiving venofer. -sp 1 unit of PRBC. Positive blood cultures 1/2 bottles. likely contaminant. --> grew staph simulans. Rechecked BCx on 10/06, thus far negative Procal 0.23, no other signs of infection. CKD stage V -Patient reports that she has refused dialysis. -No signs of uremia, no electrolyte imbalance -nephrology on board CAD status post CABG -continue aspirin ,Plavix ,Coreg, statin Hypertensive emergency with chest pain at admission that has resolved and nausea and emesis that has since resolved -was started on nicardipine gtt by nephrology -coreg 12.5 QD, hydral 25 Q8H and isordil 30 Q8H. Amlodipine was held. Diabetes -Continue with Januvia, held glipizide. -Continue Levemir insulin 7u QD -No sliding scale as it has been c/b low FSBGs, -FSBG AC/HS -Hypoglycemia protocol GERD -Continue PPI Abnormal EKG -LBBB with LAD unchanged from 2019 -troponin negative DVT ppx: TEDs VS,Fishbone, I+O VS, Fishbone, I+O Laboratory Tests 10/07/20 04:12 Vital Signs Date Time Temp Pulse Resp B/P (MAP) Pulse Ox O2 Delivery O2 Flow Rate FiO2 10/07/20 09:01 73 167/74 (105) 10/07/20 08:01 97.4 18 89 Nasal Cannula 4.0 I&O- Last 24 Hours up to 6 AM 10/07/20 06:00 Intake Total 835.0 ml Output Total 475 ml Balance 360.0 ml INGRID PARRA MD Oct 07, 2020 09:55
--- NOTE | 2020-10-07 12:54 | IPN ---
NEPHROLOGY PROGRESS NOTE DATE: 10/07/2020 SUBJECTIVE: Patient was seen and examined at the bedside today morning in the intensive care unit (ICU). She was started on intravenous (IV) Cardene drip because of hypertensive urgency yesterday. Her blood pressures are better. She is off of Cardene now. She has received oral medications today morning. She also is telling me that her headache and nausea is significantly better today. However, there is no significant improvement in the renal function. Creatinine continues to rise. OBJECTIVE: VITAL SIGNS: Temperature 97.4 degrees Fahrenheit, blood pressure 164/70, pulse 65, respiratory rate 18, saturating 90% on nasal cannula at 4 liters. INTAKE AND OUTPUT: Urine output recorded as 475 mL yesterday, 200 mL so far today since overnight. Weight in the bed scale was 70 kg yesterday. PHYSICAL EXAMINATION: GENERAL: Patient is awake, alert, oriented times three, laying in bed, no apparent distress. HEAD AND NECK EXAM: Extraocular muscles intact. Pupils equally round and reactive to light. Mucous membranes are moist. Neck is supple. Mildly elevated jugular venous distention (JVD). CARDIOVASCULAR: S1, S2. Regular rate. No edema of the bilateral lower extremities. RESPIRATORY: Mildly decreased breath sounds at the bases with inspiratory crackles. ABDOMEN: Soft. Positive bowel sounds. Nontender. No organomegaly MUSCULOSKELETAL: No clubbing or cyanosis. Pulses are 2+. CENTRAL NERVOUS SYSTEM (RADIOLOGIST PHYSICIAN): No focal deficit. Power is 5/5 in all extremities. LABORATORY STUDIES: CBC showed WBC 8, hemoglobin 8.8, platelets 203. BMP showed sodium 140, potassium 4, chloride 107, bicarbonate 23, BUN 90, creatinine 4.8. CURRENT INPATIENT MEDICATIONS: Patient's medications were all reviewed by myself. Her IV Cardene has been stopped. Coreg dose has been increased to 12.5 mg by mouth twice a day. I have started the patient on amlodipine 5 mg by mouth daily. She has also been started on torsemide 40 mg by mouth daily. ASSESSMENT AND PLAN: 1. Acute renal failure superimposed on chronic kidney disease. There is no sign of improvement of renal function. Patient was fluid overloaded and hypertensive yesterday. Patient adamantly refused to have hemodialysis done. Continue maximum medical optimization only. 2. Hypertensive urgency. Patient was on IV Cardene drip yesterday. Cardene has been weaned off. Amlodipine has been restarted. Coreg dose has been increased by medical team. 3. Acute decompensated diastolic congestive heart failure. Patient has been started on torsemide 40 mg by mouth daily. Further dose adjustment will be made depending on patient's response to the diuretics. 4. Anemia in renal failure. Patient got some doses of IV Venofer, which have been stopped now. Hemoglobin level is 8.8, which is suboptimal, but I would not give her any erythropoiesis stimulating agents (STACY) at this time because of elevated blood pressures. 5. Diabetes mellitus type 2. Okay to continue Januvia. Avoid use of metformin. Okay to continue insulin. DISPOSITION: If patient's blood pressure stays stable by today afternoon, she can be downgraded out of ICU into progressive care unit.
[2020-10-07] MEDS: ACETAMINOPHEN 500 MG TAB PO PRN (13:13)
--- NOTE | 2020-10-07 19:33 | IPNPDOC ---
Text Note Date of Service The patient was seen on 10/07/20. NOTE Subjective -nausea is much improved. -BP better, nicardipine gtt off since 6.38am this morning Objective Physical Examination General: Alert, Cooperative, No Acute Distress Eyes: PERRLA, Conjunctiva & lids normal, EOMI, anicteric ENT: Atraumatic, Mucous membr. moist/pink, Pharynx Normal Neck: continues to have JVD Chest: Normal air movement, bibasilar crackles. Heart: Rate Normal, Regular Rhythm, Normal S1, Normal S2 Abdomen: Normal bowel sounds, soft, NTND Extremities: 1+ edema, WWP Psych Exam: AO x 3 Labs: Reviewed Assessment: 85-year-old W with past medical history of Systolic and diastolic CHF with last EF of 50% with diastolic dysfunction in 2008 echo, diabetes, CKD stage IV, CAD status post CABG , hyperlipidemia, hypertension, GERD, presented to ED for chest pain and nausea and admitted for acute on chronic congestive heart failure exacerbation and hypertensive crisis. Acute hypoxemic respiratory failure -VQ scan showed low probability for a PE -s/p 1 unit of blood -with ongoing diuresis per nephrology -Unlikely bacterial PNA Acute on chronic mixed CHF exacerbation -Last echo in 2008 showed an EF of 50% with diastolic dysfunction moderate pulmonary hypertension and right heart failure -With ongoing diuresis per nephrology -Daily weights and fluid restriction 1.8 L Anemia of chronic disease and iron def -receiving venofer. -sp 1 unit of PRBC. Positive blood cultures 1/2 bottles. likely contaminant. --> grew staph simulans. Rechecked BCx on 10/06, thus far negative Procal 0.23, no other signs of infection. CKD stage V -Patient reports that she has refused dialysis. -No signs of uremia, no electrolyte imbalance -nephrology on board CAD status post CABG -continue aspirin ,Plavix ,Coreg, statin Hypertensive emergency with chest pain at admission that has resolved and nausea and emesis that has since resolved -Ongoing antihypertensives titration: currently on amlodipine 5mg, changed Coreg from 12.5 QD to BID dosing, isordil 30 Q8H, hydral 25 Q8H. Nicardipine gtt currently on hold. Diabetes -Continue with Januvia, held glipizide. -Continue Levemir insulin 7u QD -No sliding scale as it has been c/b low FSBGs, -FSBG AC/HS -Hypoglycemia protocol GERD -Continue PPI Abnormal EKG -LBBB with LAD unchanged from 2019 -troponin negative DVT ppx: TEDs VS,Fishbone, I+O VS, Fishbone, I+O Laboratory Tests 10/07/20 04:12 Vital Signs Date Time Temp Pulse Resp B/P (MAP) Pulse Ox O2 Delivery O2 Flow Rate FiO2 10/07/20 09:01 73 167/74 (105) 10/07/20 08:01 97.4 18 89 Nasal Cannula 4.0 I&O- Last 24 Hours up to 6 AM 10/07/20 06:00 Intake Total 835.0 ml Output Total 475 ml Balance 360.0 ml INGRID PARRA MD Oct 07, 2020 09:52
[2020-10-07] MEDS ORDERED: CARVedilol 12.5 MG TAB PO SCH (21:00)
[2020-10-07] MEDS: ROSUVASTATIN 10 MG TAB (CRESTOR) PO SCH (21:20)
[2020-10-08] VITALS (23 sets, daily range): BP systolic 139–202; BP diastolic 59–100
[2020-10-08] MEDS ORDERED: hydrALAZINE 20MG/ML 1ML VIAL (J0360 PER 20MG) IV ONE (03:15)
[2020-10-08] MEDS ORDERED: minoxidiL 2.5 MG TAB PO ONE (03:15)
[2020-10-08] MEDS: NITROGLYCERIN 2% OINT 1 GM *U/D* PKT TOP SCH ×2 (03:31→07:35)
[2020-10-08 05:02] LABS: BASO % 0.2 % (0.0-1.0); EOS # 0.1 10^3/uL (0.0-0.5); EOS % 0.9 % (0.0-3.0); HEMATOCRIT 28.1 % (36.0-47.0); HEMOGLOBIN 9.2 g/dl (12.0-15.5); LYMPH # 0.3 10^3/uL (1.5-5.0); LYMPH % 3.6 % (24.0-44.0); MEAN CORPUSCULAR HEMOGLOBIN 28.2 pg (27.0-33.0); MEAN CORPUSCULAR HGB CONC 32.7 g/dl (32.0-36.5); MEAN CORPUSCULAR VOLUME 86.2 fl (80.0-96.0); MONO # 0.5 10^3/uL (0.0-0.8); MONO % 6.1 % (2.0-8.0); NEUTROPHILS # 7.9 10^3/uL (1.5-8.5); NEUTROPHILS % 88.4 % (36.0-66.0); PLATELET COUNT, AUTOMATED 245 10^3/uL (150-450); RED BLOOD COUNT 3.26 10^6/uL (4.00-5.40); WHITE BLOOD COUNT 8.9 10^3/uL (4.0-10.0)
[2020-10-08] MEDS ORDERED: niCARdipine IV 40 MG in IV 1 EA IV SCH (05:05)
[2020-10-08] MEDS ORDERED: hydrALAZINE 20MG/ML 1ML VIAL (J0360 PER 20MG) IV STA (05:06)
--- NOTE | 2020-10-08 05:15 | IPNPDOC ---
Date Seen The patient was seen on 10/08/20. Progress Note Due to uncontrolled HTN despite iv hydralazine, nitroglycerin 1inch topically q4hrs, miinoxidil, pt was transferred back to ICU status for nicardipine iv gtt. Repeat CXR ordered due to increasing o2 requirement. VS, I&O, 24H, Fishbone Vital Signs/I&O Vital Signs Date Time Temp Pulse Resp B/P (MAP) Pulse Ox O2 Delivery O2 Flow Rate FiO2 10/08/20 04:11 186/76 10/08/20 04:01 98.8 69 18 91 High Flow Cannula 6.0 I&O- Last 24 Hours up to 6 AM 10/08/20 06:00 Intake Total 486 ml Output Total 400 ml Balance 86 ml Laboratory Data 24H LABS Laboratory Tests 2 10/07/20 08:31: Bedside Glucose (Misc Panel) 106 10/07/20 17:07: Bedside Glucose (Misc Panel) 158H 10/08/20 04:30: Immature Granulocyte % (Auto) 0.8, Neutrophils (%) (Auto) 88.4H, Lymphocytes (%) (Auto) 3.6L, Monocytes (%) (Auto) 6.1, Eosinophils (%) (Auto) 0.9, Basophils (%) (Auto) 0.2, Neutrophils # (Auto) 7.9, Lymphocytes # (Auto) 0.3L, Monocytes # (Auto) 0.5, Eosinophils # (Auto) 0.1, Basophils # (Auto) 0.0, Nucleated Red Bl ood Cells % (auto) 0.0 CBC/BMP Laboratory Tests 10/08/20 04:30 Microbiology Microbiology 10/06/20 Blood Culture - Preliminary, Resulted No growth after 24 hours . All specim... 10/03/20 Blood Culture - Preliminary, Resulted No Growth after 72 hours. All specime... 10/03/20 Blood Culture - Preliminary, Resulted Staphylococcus Simulans 10/03/20 Respiratory Virus Panel (PCR) ([facility]) - Final, Complete KIRK GASCA MD Oct 08, 2020 05:15
[2020-10-08 05:22] LABS: CALCIUM LEVEL 8.1 MG/DL (8.8-10.2); CREATININE FOR GFR 5.36 MG/DL (0.55-1.30); GLOMERULAR FILTRATION RATE 8.1 (>32); POTASSIUM SERUM 4.2 MEQ/L (3.5-5.1)
[2020-10-08] MEDS: **hydrALAZINE HCL** 25 MG TAB PO SCH (05:55)
[2020-10-08] MEDS: ONDANSETRON 4 MG ORAL DISINTEGRATING TAB PO PRN (05:55)
[2020-10-08] MEDS: HumaLOG INSULIN (NovoLOG) PER UNIT SC SCH ×3 (07:30→17:11)
--- NOTE | 2020-10-08 07:37 | REPVR ---
PROCEDURE INFORMATION: Exam: XR Chest Exam date and time: 10/08/2020 5:13 AM Age: 85 years old Clinical indication: Other: SOB TECHNIQUE: Imaging protocol: XR of the chest. Views: 1 view. COMPARISON: 1. CT Chest without contrast 10/05/2020 10:40 AM 2. CR PORTABLE CHEST X-RAY 10/03/2020 5:21:31 AM FINDINGS: Lungs: Pulmonary vascular congestion with diffuse interstitial prominence and thickening of the interlobular septa. Hazy perihilar ground-glass opacities, right greater than left, as well as hazy and more confluent opacity at the lung bases. Pleural spaces: Small bilateral pleural effusions. No pneumothorax. Heart/Mediastinum: Stable cardiomegaly and mediastinal contours. Postoperative change from sternotomy and cardiac surgery. Bones/joints: Bones are stable. IMPRESSION: Pulmonary vascular congestion with increasing diffuse interstitial and bilateral airspace opacities. Findings may represent pulmonary edema and/or pneumonia. Electronically signed by: Neftali Blood On 10/08/2020 07:37:00 AM
[2020-10-08] MEDS ORDERED: GLUCOSE 4GM CHEW TABLET PO PRN (08:20)
[2020-10-08] MEDS ORDERED: GLUCAGON INJ 1MG VIAL SC PRN (08:20)
[2020-10-08] MEDS ORDERED: DEXTROSE 50% 50 ML SYRINGE IV PRN (08:20)
[2020-10-08] MEDS ORDERED: CARVedilol 12.5 MG TAB PO SCH (09:00)
[2020-10-08] MEDS ORDERED: PROMETHAZINE INJ 25 MG/ML VIAL (J2550) IV PRN (09:20)
[2020-10-08] MEDS: ONDANSETRON 4MG/2ML VIAL IV PRN ×2 (10:03→20:54)
[2020-10-08] MEDS: CLOPIDOGREL 75 MG TAB PO SCH (10:22)
[2020-10-08] MEDS: ASPIRIN 81MG ENTERIC TABLET PO SCH (10:22)
[2020-10-08] MEDS: ISOSORBIDE DIN. (ISORDIL) 30 MG TAB PO SCH ×2 (10:22→14:11)
[2020-10-08] MEDS: PANTOPRAZOLE 40MG TAB (PROTONIX) PO SCH (10:23)
--- NOTE | 2020-10-08 10:25 | IPNPDOC ---
Text Note Date of Service The patient was seen on 10/08/20. NOTE Subjective -Naseous and with increasing O2 requirements. nephrology is aware and has been discussing dialysis vs. palliative care approach as she has refused dialysis thus far. Objective Physical Examination General: Alert, Cooperative, No Acute Distress Eyes: PERRLA, Conjunctiva & lids normal, EOMI, anicteric ENT: Atraumatic, Mucous membr. moist/pink, Pharynx Normal Neck: continues to have JVD Chest: Bibasilar crackles, on 8L Heart: Rate Normal, Regular Rhythm, Normal S1, Normal S2 Abdomen: Normal bowel sounds, soft, NTND Extremities: 1+ edema, WWP Psych Exam: AO x 3 Labs: Reviewed Assessment: 85-year-old W with past medical history of Systolic and diastolic CHF with last EF of 50% with diastolic dysfunction in 2008 echo, diabetes, CKD stage IV, CAD status post CABG , hyperlipidemia, hypertension, GERD, presented to ED for chest pain and nausea and admitted for acute on chronic congestive heart failure exacerbation and hypertensive crisis. Acute hypoxemic respiratory failure -VQ scan showed low probability for a PE -s/p 1 unit of blood -with ongoing diuresis per nephrology -Unlikely bacterial PNA Acute on chronic mixed CHF exacerbation -Last echo in 2008 showed an EF of 50% with diastolic dysfunction moderate pulmonary hypertension and right heart failure -With ongoing diuresis per nephrology -Daily weights and fluid restriction 1.8 L Anemia of chronic disease and iron def -receiving venofer. -sp 1 unit of PRBC. Positive blood cultures 1/2 bottles. likely contaminant. --> grew staph simulans. Rechecked BCx on 10/06, thus far negative Procal 0.23, no other signs of infection. CKD stage V -Patient reports that she has refused dialysis. -No signs of uremia, no electrolyte imbalance -nephrology on board CAD status post CABG -continue aspirin ,Plavix ,Coreg, statin Hypertensive emergency with chest pain at admission that has resolved and nausea and emesis that has since resolved -Ongoing antihypertensives titration: will place back on amlodipine 10mg, changed Coreg to 25mg BID, isordil 30 Q8H, hydral 25 Q8H. Nicardipine gtt stop ped. Diabetes -stop Januvia with unpredictable PO due to nausea. will start SSI AC/HS -Continue Levemir insulin 7u QD -FSBG AC/HS -Hypoglycemia protocol GERD -Continue PPI Abnormal EKG -LBBB with LAD unchanged from 2019 -troponin negative DVT ppx: TEDs VS,Fishbone, I+O VS, Fishbone, I+O Laboratory Tests 10/08/20 04:30 Vital Signs Date Time Temp Pulse Resp B/P (MAP) Pulse Ox O2 Delivery O2 Flow Rate FiO2 10/08/20 07:35 171/74 10/08/20 07:00 78 90 10/08/20 04:01 98.8 18 High Flow Cannula 6.0 I&O- Last 24 Hours up to 6 AM 10/08/20 06:00 Intake Total 606 ml Output Total 400 ml Balance 206 ml INGRID PARRA MD Oct 08, 2020 08:25
[2020-10-08] MEDS: TORSEMIDE 20 MG TAB PO SCH (10:30)
[2020-10-08] MEDS ORDERED: CHLOROTHIAZIDE 500 MG VIAL (J1205 PER 1) IV ONE (11:50)
[2020-10-08] MEDS ORDERED: FUROSEMIDE 100MG/10ML VIAL (J1940) IV ONE (11:50)
--- NOTE | 2020-10-08 12:41 | IPN ---
NEPHROLOGY PROGRESS NOTE DATE: 10/08/2020 SUBJECTIVE: The patient was seen and examined at the bedside today morning in the ICU. She was downgraded out of ICU yesterday, however her blood pressures went up again. She briefly required a Nicardipine drip again for almost half an hour. She needed IV Hydralazine. She was also given a dose of Minoxidil. Blood pressures are slightly better now. She is not requiring any Nicardipine. However the patient reports she is nauseated today morning. There is no improvement in the renal function. Creatinine actually continues to rise. OBJECTIVE: VITAL SIGNS: Temperature is 97 degrees Fahrenheit, blood pressure is 170/70, pulse is 73, respiratory rate of 24, saturating 93% on nasal cannula at 8 liters. INTAKE AND OUTPUT: Urine output recorded as 600 mL yesterday. There is no urine output recorded since overnight. Weight in the bed scale is 72.6 kg. PHYSICAL EXAMINATION: GENERAL APPEARANCE: The patient is awake, alert, oriented x3, laying in bed in mild respiratory distress. HEAD AND NECK: Extraocular muscles intact. Pupils are equally round and reactive to light. Mucous membranes are moist. Neck is supple. Mildly elevated jugular venous distention. CARDIOVASCULAR: S1, S2, regular rate. EXTREMITIES: Trace edema of the bilateral lower extremities. RESPIRATORY: Mildly decreased breath sounds at the bases with inspiratory crackles at the bases. ABDOMEN: Soft, positive bowel sounds, nontender, no organomegaly. MUSCULOSKELETAL: No clubbing, no cyanosis. Pulses are 2+. SENIOR POWER SCHEDULER: No focal deficits. Power is 5/5 in all extremities. LAB REVIEW: CBC showed a WBC count of 8.9, hemoglobin 9.2, platelet count 245. BMP showed sodium of 137, potassium 4.2, chloride 105, bicarbonate 20, BUN 101, creatinine is 5.3. IMAGING: A chest x-ray was done today morning which showed pulmonary vascular congestion with increasing diffuse interstitial and bilateral air space opacities which may represent pulmonary edema or pneumonia. CURRENT INPATIENT MEDICATIONS: The patient's medications were all reviewed by myself. She has been started on Amlodipine 10 mg daily. Coreg dose has been increased to 25 mg p.o. twice daily. Hydralazine dose has been increased to 50 mg p.o. q. 8 hourly. She continues to be on Isosorbide 30 mg p.o. q. 8 hourly. She continues to be on Torsemide 40 mg daily. Januvia has been stopped. ASSESSMENT AND PLAN: 1. Hypertensive urgency - The patient's blood pressure is still elevated. Multiple antihypertensive medications have been adjusted now. The patient is in renal failure and fluid overloaded as well. She will be given more diuretics, however given her renal failure, it will be very challenging to control her blood pressure. 2. Acute decompensated diastolic congestive heart failure - The patient is on oral diuretics. I will give her a dose of IV Lasix and IV Diuril to help her optimize her fluid status. 3. Acute renal failure superimposed on chronic kidney disease - The patient has approached end-stage renal disease. multiple discussions have been done with her regarding initiation of hemodialysis. She does not want any hemodialysis and she is considering palliative care at this time if medications do not work. 4. Anemia in renal failure - The patient was iron deficient as well. She was given IV Venofer. She is not a candidate for STACY at this time because of elevated blood pressures. 5. Diabetes mellitus type 2 okay to continue Levemir. Januvia has been stopped by the Medical Team.
[2020-10-08] MEDS ORDERED: **hydrALAZINE** 50 MG TAB PO SCH (14:00)
[2020-10-08] MEDS ORDERED: LORazepam 1 MG TAB PO PRN (17:30)
[2020-10-08] MEDS: ACETAMINOPHEN 500 MG TAB PO PRN (20:48)
[2020-10-08] MEDS ORDERED: HumaLOG INSULIN (NovoLOG) PER UNIT SC SCH (21:00)
[2020-10-09] MEDS: ONDANSETRON 4MG/2ML VIAL IV PRN ×3 (01:13→12:35)
[2020-10-09] MEDS: MORPHINE 10MG/0.5ML ORAL CONCENTRATE SOLUTION U/D SL PRN (08:00)
--- NOTE | 2020-10-09 14:29 | IPNPDOC ---
Text Note Date of Service The patient was seen on 10/09/20. NOTE Subjective -No acute events overnight. Was transitioned to SHOVEL LOG LOADER OPERATOR status yesterday evening. -Nauseous but slightly improved with PRN IV meds Objective General: Alert, Cooperative, No Acute Distress, tachypneic but able to hold conversation without distress Eyes: PERRLA, Conjunctiva & lids normal, EOMI, anicteric ENT: Atraumatic, Mucous membr. moist/pink, Pharynx Normal Chest: Bibasilar crackles, on 10L Heart: Rate Normal, Regular Rhythm, Normal S1, Normal S2 Abdomen: Normal bowel sounds, soft, NTND Extremities: 1+ edema, WWP Psych Exam: AO x 3 Labs: Reviewed. No new labs Assessment: 85-year-old W with past medical history of Systolic and diastolic CHF with last EF of 50% with diastolic dysfunction in 2008 echo, diabetes, CKD stage IV, CAD status post CABG , hyperlipidemia, hypertension, GERD, presented to ED for chest pain and nausea and admitted for acute on chronic congestive heart failure exacerbation and hypertensive crisis. Acute hypoxemic respiratory failure i/s/o acute on chronic mixed systolic and diastolic CHF and renal failure -VQ scan showed low probability for a PE -s/p 1 unit of blood -Low probability for infection -now transitioned to SHOVEL LOG LOADER OPERATOR status Acute on chronic mixed CHF exacerbation -Last echo in 2008 showed an EF of 50% with diastolic dysfunction moderate pulmonary hypertension and right heart failure -now transitioned to SHOVEL LOG LOADER OPERATOR status Anemia of chronic disease and iron def -s/p venofer. -sp 1 unit of PRBC. -now transitioned to SHOVEL LOG LOADER OPERATOR status Positive blood cultures 1/2 bottles. likely contaminant. --> grew staph simulans. Rechecked BCx on 10/06, negative Procal 0.23, no other signs of infection. -now transitioned to SHOVEL LOG LOADER OPERATOR status NEEL on CKD stage V -Patient refused dialysis. -now transitioned to SHOVEL LOG LOADER OPERATOR status CAD status post CABG -now transitioned to SHOVEL LOG LOADER OPERATOR status Hypertensive emergency with chest pain at admission that has resolved and nausea and emesis that has since resolved -now transitioned to SHOVEL LOG LOADER OPERATOR status Diabetes -SSI AC/HS -Continue Levemir insulin 7u QD -FSBG AC/HS -Hypoglycemia protocol Abnormal EKG -LBBB with LAD unchanged from 2019 -troponin negative DVT ppx: TEDs. now transitioned to SHOVEL LOG LOADER OPERATOR status VS,Fishbone, I+O VS, Fishbone, I+O Vital Signs Date Time Temp Pulse Resp B/P (MAP) Pulse Ox O2 Delivery O2 Flow Rate FiO2 10/08/20 16:00 10.0 10/08/20 16:00 97.8 65 20 144/63 (90) 94 High Flow Cannula I&O- Last 24 Hours up to 6 AM 10/09/20 06:00 Intake Total 270 ml Output Total 75 ml Balance 195 ml INGRID PARRA MD Oct 09, 2020 07:39
[2020-10-09 20:00] VITALS: BP 145/66
[2020-10-10] MEDS: ONDANSETRON 4MG/2ML VIAL IV PRN ×2 (00:31→11:48)
[2020-10-11] MEDS: ACETAMINOPHEN 500 MG TAB PO PRN (09:42)
[2020-10-12] MEDS: ACETAMINOPHEN 500 MG TAB PO PRN (08:08)
[2020-10-13] MEDS: ACETAMINOPHEN 500 MG TAB PO PRN (07:40)
[2020-10-13] MEDS ORDERED: PROMETHAZINE 25 MG TAB PO PRN (18:30)
[2020-10-13] MEDS ORDERED: ONDANSETRON 4 MG ORAL DISINTEGRATING TAB PO PRN (18:30)
[2020-10-14] MEDS: ACETAMINOPHEN 500 MG TAB PO PRN (03:49)
[2020-10-15] MEDS: ACETAMINOPHEN 500 MG TAB PO PRN (15:59)
[2020-10-16] MEDS: ACETAMINOPHEN 500 MG TAB PO PRN (10:48)
[2020-10-16] MEDS: MORPHINE 10MG/0.5ML ORAL CONCENTRATE SOLUTION U/D SL PRN ×2 (11:04→21:57)
[2020-10-17] MEDS: MORPHINE 10MG/0.5ML ORAL CONCENTRATE SOLUTION U/D SL PRN (06:32)
--- NOTE | 2020-10-17 12:14 | IPNPDOC ---
Subjective Date Seen The patient was seen on 10/17/20. Subjective Chief Complaint/HPI Patient awake alert conversant very pleasant. Complains of food sticking at the lower part of the chest. Reports she has to be very careful about what she eats or drinks. No appetite. She feels like most of the foods are giving her spasm in the lower part of the chest and then she vomits it. Patient is on 10 L of oxygen denies any shortness of breath. Objective Physical Examination General Exam: Positive: Alert, Cooperative Eye Exam: Positive: PERRLA, Conjunctiva & lids normal, EOMI, Other Eye Symptoms (Periorbital puffiness); Negative: Sclera icteric ENT Exam: Positive: Atraumatic, Mucous membr. moist/pink, Pharynx Normal Neck Exam: Positive: Supple, JVD; Negative: thyromegaly Chest Exam: Positive: Diminished, Other (basal crackles. ) Heart Exam: Positive: Rate Normal, Normal S1, Normal S2; Negative: Murmurs, Rubs Telemetry: Positive: No significant arrhythmia Abdomen Exam: Positive: Normal bowel sounds, Soft; Negative: Tenderness Extremity Exam: Positive: Edema; Negative: Clubbing, Cyanosis Psych Exam: Positive: Oriented x 3 Assessment /Plan Assessment 85-year-old W with past medical history of Systolic and diastolic CHF with last EF of 50% with diastolic dysfunction in 2008 echo, diabetes, CKD stage IV, CAD status post CABG , hyperlipidemia, hypertension, GERD, presented to ED for chest pain and nausea and admitted for acute on chronic congestive heart failure exacerbation and hypertensive crisis. After admission patient's renal failure continued to worsen and patient went into CKD stage V. Patient also became more and more SOB requiring 10 L of oxygen. Patient refused HD. She did not show any improvement with maximum medical management. At that point patient opted to be kept comfortable and patient was transitioned into TELECOMMUNICATION LINES REPAIRER status. At present patient is waiting for hospice house. TELECOMMUNICATION LINES REPAIRER Ativan/morphine/hyoscyamine as per hospice protocol Medical problems CKD stage 5 , refused dialysis Acute respiratory failure with hypoxia Acute on chronic systolic and diastolic CHF Anemia of chronic disease and iron deficiency CAD/ CABG DM Hypertension. Plan/VTE VTE Prophylaxis Ordered?: Yes VS, I&O, 24H, Fishbone Vital Signs/I&O Vital Signs Date Time Temp Pulse Resp B/P (MAP) Pulse Ox O2 Delivery O2 Flow Rate FiO2 10/17/20 07:02 20 10/16/20 22:37 10.0 I&O- Last 24 Hours up to 6 AM 10/17/20 06:00 Intake Total 910 ml Balance 910 ml EJ VALENZUELA MD Oct 17, 2020 12:14
[2020-10-18] MEDS: MORPHINE 10MG/0.5ML ORAL CONCENTRATE SOLUTION U/D SL PRN (07:45)
[2020-10-19] MEDS: MORPHINE 10MG/0.5ML ORAL CONCENTRATE SOLUTION U/D SL PRN ×2 (08:12→20:03)
[2020-10-20] MEDS: MORPHINE 10MG/0.5ML ORAL CONCENTRATE SOLUTION U/D SL PRN (08:43)
[2020-10-20] MEDS: ACETAMINOPHEN 500 MG TAB PO PRN (10:41)
[2020-10-23] MEDS: ACETAMINOPHEN 500 MG TAB PO PRN ×2 (03:03→15:48)
[2020-10-23 05:54] VITALS: BP 168/75
[2020-10-24] MEDS: ACETAMINOPHEN 500 MG TAB PO PRN (15:47)
[2020-10-25] MEDS: MORPHINE 10MG/0.5ML ORAL CONCENTRATE SOLUTION U/D SL PRN (00:50)
[2020-10-25] MEDS: ACETAMINOPHEN 500 MG TAB PO PRN (03:13)
--- NOTE | 2020-10-25 11:50 | IPNPDOC ---
Text Note Date of Service The patient was seen on 10/25/20. NOTE Subjective: Patient seen and examined at bedside. No acute overnight events reported. She notes generalized body aches. Objective: General: NAD, lying comfortably in bed, elderly HEENT: NC/AT, poor dentition, nasal cannula in place Chest: no accessory muscle use, speaking easily in full sentences Skin: no rashes MSK: full ROM in large joints Ext: no edema Neuro: no gross focal deficits Psych: AAOx3 A/P: 85-year-old W with past medical history of Systolic and diastolic CHF with last EF of 50% with diastolic dysfunction in 2008 echo, diabetes, CKD stage IV, CAD status post CABG , hyperlipidemia, hypertension, GERD, presented to ED for chest pain and nausea and admitted for acute on chronic congestive heart failure exacerbation and hypertensive crisis. After admission patient's renal failure continued to worsen and patient went into CKD stage V. Patient also became more and more SOB requiring 10 L of oxygen. Patient refused HD. She did not show any improvement with maximum medical management. 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 At present patient is waiting for hospice house. 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 Disposition: pending placement for hospice house VS,[facility]ino[facility], I+O VS, Faustinoe, I+O Vital Signs Date Time Temp Pulse Resp B/P (MAP) Pulse Ox O2 Delivery O2 Flow Rate FiO2 10/23/20 07:44 10.0 10/23/20 05:54 97.2 95 16 168/75 (106) 95 High Flow Cannula I&O- Last 24 Hours up to 6 AM 10/23/20 06:00 Intake Total 180 ml Balance 180 ml DANIELE LEON MD Oct 23, 2020 18:40
[2020-10-26] MEDS: MORPHINE 10MG/0.5ML ORAL CONCENTRATE SOLUTION U/D SL PRN ×2 (10:21→19:01)
[2020-10-27] MEDS: MORPHINE 10MG/0.5ML ORAL CONCENTRATE SOLUTION U/D SL PRN (06:43)
--- NOTE | 2020-10-27 11:22 | DS.PDOC ---
Discharge Summary General Date of Admission Oct 04, 2020 at 10:12 Date of Discharge 10/27/2020 Discharge Summary PROCEDURES PERFORMED DURING STAY: [None]. 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 Patient was found to have decompensated heart failure and was admitted to the hospital service for further evaluation and treatment. Patient's hospital course was complicated with worsening renal function and worsening hypoxia. Patient's oxygen requirement had increased to 10 L of oxygen. Patient had refused hemodialysis and decision was made to transition patient to comfort measures. Most form was updated to reflect this change. Patient was inpatient awaiting hospice house. Unfortunately, patient on 10/27/2020 prior to establishing placement. DISCHARGE MEDICATIONS: Please see below. ALLERGIES: Please see below. LABORATORY DATA: Please see below. DISCHARGE PLAN: TIME SPENT ON DISCHARGE: 20 minutes Vital Signs/I&Os Vital Signs Date Time Temp Pulse Resp B/P (MAP) Pulse Ox O2 Delivery O2 Flow Rate FiO2 10/26/20 21:00 10.0 10/23/20 05:54 97.2 95 16 168/75 (106) 95 High Flow Cannula I&O- Last 24 Hours up to 6 AM 10/27/20 06:00 Intake Total 0 ml Balance 0 ml Discharge Medications Scheduled Amlodipine Besylate (Amlodipine Besylate) 5 Mg Tab, 5 MG PO BID, (Reported) Aspirin (Aspirin EC) 81 Mg Tab, 81 MG PO DAILY, (Reported) Carvedilol (Carvedilol) 12.5 Mg Tablet, 12.5 MG PO DAILY, (Reported) Clopidogrel Bisulfate (Plavix) 75 Mg Tab, 75 MG PO DAILY, (Reported) Cyanocobalamin (Vitamin B-12) (Vitamin B-12) 1,000 Mcg Tab, 1,000 MCG PO DAILY, (Reported) Folic Acid (Folic Acid) 1 Mg Tab, 1 MG PO DAILY, (Reported) Glipizide (Glipizide ER) 5 Mg Tab, 2.5 MG PO DAILY, (Reported) Insulin Glargine,Hum.rec.anlog (Lantus Solostar) 100 Unit/1 Ml Insuln.pen, 10 UNIT SC QAM, (Reported) Insulin Human Lispro (Humalog) 100 Unit/1 Ml Vial, 6 UNITS SC DAILY, (Reported) @ 1200 Isosorbide Mononitrate (Isosorbide Mononitrate ER) 30 Mg Tab.er.24h, 30 MG PO BID, (Reported) Superior-3 Fatty Acids/Fish Oil (Fish Oil 1,200 mg Softgel) 1 Cap Cap, 2 CAP PO BID, (Reported) Pantoprazole Sodium (Pantoprazole Sodium) 40 Mg Tab, 40 MG PO DAILY, (Reported) Rosuvastatin Calcium (Crestor) 40 Mg Tab, 40 MG PO QPM, (Reported) Sitagliptin Phosphate (Januvia) 25 Mg Tablet, 25 MG PO DAILY, (Reported) Spironolactone (Spironolactone) 25 Mg Tablet, 12.5 MG PO DAILY, (Reported) Torsemide (Torsemide) 20 Mg Tab, 20 MG PO DAILY, (Reported) Vit A/Vit C/Vit E/Zinc/Copper (Preservision Areds Softgel) 1 Cap Cap, 1 CAP PO DAILY, (Reported) Scheduled PRN Acetaminophen (Tylenol Arthritis) 650 Mg Tab, 1,300 MG PO Q8HP PRN for PAIN, (Reported) Nitroglycerin (Nitroglycerin) 0.4 Mg Sub, 0.4 MG SL PRN PRN for CHEST PAIN, (Reported) Allergies Coded Allergies: Penicillins (Verified Allergy, Mild, rash, 10/03/20) erythromycin base (Verified Adverse Reaction, Mild, nausea vomiting, 10/03/20) shrimp (Verified Adverse Reaction, Mild, vomiting, 10/03/20) VASYL KNIGHT MD Oct 27, 2020 11:22
== END 2020-10-27 10:30 | disposition expired | DRG 291 ==
LOC: M ED 05:03 → M ED INP 10:06 → ENRESERV 13:16 → M PCU 17:23 → OBSVTOIN 10-04 10:12 → M ICU 10-06 08:54 → M MSPAV 10-08 19:05
PROVIDERS: ADMIT Internal Medicine Nephrology; ATTEND Internal Medicine
DX: I13.2 Hypertensive heart and chronic kidney disease with heart failure and with stage 5 chronic kidney disease, or end stage renal disease (principal); I50.33 Acute on chronic diastolic (congestive) heart failure; J96.01 Acute respiratory failure with hypoxia; N18.6 End stage renal disease; N17.9 Acute kidney failure, unspecified; I16.9 Hypertensive crisis, unspecified; E11.22 Type 2 diabetes mellitus with diabetic chronic kidney disease; I27.20 Pulmonary hypertension, unspecified; D63.1 Anemia in chronic kidney disease; I25.10 Atherosclerotic heart disease of native coronary artery without angina pectoris; Z95.1 Presence of aortocoronary bypass graft; E78.5 Hyperlipidemia, unspecified; K21.9 Gastro-esophageal reflux disease without esophagitis; Z51.5 Encounter for palliative care; Z79.82 Long term (current) use of aspirin; Z79.899 Other long term (current) drug therapy; Z79.4 Long term (current) use of insulin; Z88.0 Allergy status to penicillin; Z91.013 Allergy to seafood; Z88.8 Allergy status to other drugs, medicaments and biological substances